=== PATIENT | female | born 1945 | race Caucasian/White ===

== ENCOUNTER → 2021-03-27 13:51 | Outpatient (CLI) | payer MEDICARE, OTHER, SELFPAY ==
--- NOTE | 2021-03-27 14:01 | XR_ITS ---
PROCEDURE: XR KNEE RT 3V CLINICAL INDICATION: Rt tibial plateau fracture COMPARISON: No exams were available for comparison FINDINGS: Mildly distracted oblique fracture is present involving the proximal tibia. The fracture begins along the medial aspect of the lateral tibial plateau and extends inferiorly and obliquely exiting medially at the proximal tibial region. Nondisplaced proximal fibular fracture is also noted involving the head of the fibula. There is an extra small vertical component extending into the lateral aspect of the medial tibial plateau articular surface. The fracture margins are well-circumscribed suggesting that this may represent an older fracture. Please correlate with clinical findings. There is a lucency is well involving the proximal patella centrally and anteriorly consistent with a nondisplaced fracture. Other findings:None. IMPRESSION: Tibial plateau fracture as described above with associated fracture at the head of the fibula and at the proximal patella. These fractures could be old. Please correlate with clinical findings. Dictated by: Alejandro Moreland MD 03/27/2021 14:24 Alejandro Moreland MD in [facility] 03/27/2021 14:24
== END ==
PROVIDERS: PCP Family Medicine; Visit Provider Orthopaedic Surgery
DX: S82.141A Displaced bicondylar fracture of right tibia, initial encounter for closed fracture (principal)
CPT/HCPCS: 73562

== ENCOUNTER → 2021-04-24 13:00 | Outpatient (CLI) | payer MEDICARE, OTHER, SELFPAY ==
--- NOTE | 2021-04-24 13:07 | XR_ITS ---
PROCEDURE: XR KNEE RT 3V CLINICAL INDICATION: RT tibial plateau fx Follow-up tibial plateau fracture COMPARISON: CR XR KNEE RT 3V from 03/27/2021 FINDINGS: Proximal tibial fracture once again noted involving the medial aspect of the lateral tibial plateau extending obliquely to the proximal tibial region medially. An additional longitudinal intra-articular component noted on the lateral view in the central aspect of the proximal tibia. Nondisplaced fracture involves the proximal fibula at swell. Moderate size knee joint effusion which appears slightly smaller. IMPRESSION: No change intra-articular proximal tibial fracture and proximal fibular fracture with knee joint effusion. Dictated by: Alejandro Moreland MD 04/24/2021 16:10 Alejandro Moreland MD in [facility] 04/24/2021 16:10
== END ==
PROVIDERS: PCP Family Medicine; Visit Provider Orthopaedic Surgery
DX: S82.141A Displaced bicondylar fracture of right tibia, initial encounter for closed fracture (principal)
CPT/HCPCS: 73562

== ENCOUNTER 2021-04-24 14:06 | Outpatient (RCR) | payer MEDICARE, OTHER, SELFPAY | END 2021-04-24 15:00 | disposition home or self-care (01) | LOC: PT 14:06 | PROVIDERS: Visit Provider Orthopaedic Surgery | DX: S82.141A Displaced bicondylar fracture of right tibia, initial encounter for closed fracture (principal) | CPT/HCPCS: 97760 ==

== ENCOUNTER → 2021-05-22 13:00 | Outpatient (CLI) | payer MEDICARE, OTHER, SELFPAY ==
--- NOTE | 2021-05-22 13:03 | XR_ITS ---
PROCEDURE: XR KNEE RT 3V CLINICAL INDICATION: RT tibial plateau fx COMPARISON: CR XR KNEE RT 3V from 03/27/2021 CR XR KNEE RT 3V from 04/24/2021 FINDINGS: Tibial plateau fracture once again noted with the fracture line extending from the lateral aspect of the medial tibial plateau inferiorly and medially to the medial and proximal tibia. Fracture line is still prominent. There is depression of the medial tibial plateau. There is an additional fracture component extending from the lateral aspect of the medial tibial plateau articular surface to the main fracture line. Nondisplaced fracture involves the head of the fibula. IMPRESSION: No change depressed comminuted tibial plateau fracture with incomplete bony union with associated nondisplaced fracture of the proximal fibula Dictated by: Alejandro Moreland MD 05/22/2021 13:22 Alejandro Moreland MD in [facility] 05/22/2021 13:22
== END ==
PROVIDERS: PCP Family Medicine; Visit Provider Orthopaedic Surgery
DX: S82.141A Displaced bicondylar fracture of right tibia, initial encounter for closed fracture (principal)
CPT/HCPCS: 73562

== ENCOUNTER → 2021-07-01 12:57 | Outpatient (CLI) | payer MEDICARE, OTHER, SELFPAY ==
--- NOTE | 2021-07-01 13:01 | XR_ITS ---
PROCEDURE: XR KNEE RT 3V CLINICAL INDICATION: right tibial plateau fracture COMPARISON: CR XR KNEE RT 3V from 03/27/2021 CR XR KNEE RT 3V from 04/24/2021 CR XR KNEE RT 3V from 05/22/2021 FINDINGS: Tibial plateau fracture once again noted involving the mid and medial aspect of the tibial plateau with inferior angulation the medial aspect of the tibia. The fracture line is still very visible with a longitudinal component extending into the articular surface. There is some callus formation noted posteriorly. IMPRESSION: There is incomplete bony union involving the tibial plateau fracture. There is some callus formation noted posteriorly however the there is nonunion of the transverse component of the fracture and the linear component which extends to the articular surface. Dictated by: Alejandro Moreland MD 07/01/2021 15:49 Alejandro Moreland MD in [facility] 07/01/2021 15:49
== END ==
PROVIDERS: PCP Family Medicine; Visit Provider Orthopaedic Surgery
DX: S82.141A Displaced bicondylar fracture of right tibia, initial encounter for closed fracture (principal)
CPT/HCPCS: 73562

== ENCOUNTER → 2021-08-06 07:45 | Outpatient (CLI) | payer MEDICARE, OTHER, SELFPAY ==
--- NOTE | 2021-08-06 07:45 | CT_ITS ---
PROCEDURE: CT KNEE RT WO CON CLINICAL HISTORY: evaluate non union tibial plateau fx COMPARISON: No exams were available for comparison TECHNIQUE: Axial images obtained with sagittal and coronal reformats. All CT scans at the facility use one or more dose reduction, viz: automated exposure control, ma/kV adjustment per patient size (including targeted exams where dose is matched to indication, i.e. head), or iterative reconstruction technique. FINDINGS: There is an oblique fracture tibia. The fracture extends the medial aspect of the lateral tibial to the medial proximal tibia. The fracture line is clearly visible with some cortication the fracture margins consistent with nonunion. There is good alignment of the major fracture fragments. There is minimal separation of the fracture fragments by approximately 2 mm. There is an additional intra-articular vertical component of the fracture through the proximal tibia also extending from the medial aspect of lateral tibial plateau to the medial margin of proximal tibia. This also is ununited. Other smaller comminuted fragments are present dorsally. 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 No evidence avascular necrosis. Hypertrophic changes are present along the proximal patella. There is a small knee joint effusion. There is generalized vascular calcification. The ligaments, tendons, and menisci are not well evaluated with CT technique. There is mild chondrocalcinosis of the medial meniscus. IMPRESSION: Ununited comminuted tibial plateau fracture Dictated by: Alejandro Moreland MD 08/07/2021 06:48 Alejandro Moreland MD in [facility] 08/07/2021 06:48
== END ==
PROVIDERS: PCP Family Medicine; Visit Provider Orthopaedic Surgery
DX: S82.141A Displaced bicondylar fracture of right tibia, initial encounter for closed fracture (principal)
CPT/HCPCS: 73700

== ENCOUNTER 2024-02-21 07:49 | Day surgery (SDC) | payer MEDICARE, OTHER, SELFPAY ==
[2024-02-16 10:18] VITALS: BMI 31.8
[2024-02-21] MEDS: TETRACAINE 0.5% OPTH SOL 15ML OP ×3 (08:30→08:40)
[2024-02-21] MEDS: CYCLOPENTOLATE 2% OPHTH SOLN 2ML BOTTLE OP ×3 (08:30→08:40)
[2024-02-21] MEDS: PHENYLEPHRINE 2.5% OPHTH SOLN 2ML OP ×3 (08:30→08:40)
[2024-02-21 08:37] VITALS: BP 180/84; PULSE 71; RESP 16; TEMP 36.2; O2SAT 98
[2024-02-21] MEDS: SODIUM CHLORIDE 0.9% 10ML FLUSH SYRINGE 10 ML IV (08:45)
[2024-02-21 08:47] LABS: POC Glucose,Bedside 128 (70-110)
[2024-02-21 09:14] VITALS: BP 114/59; PULSE 56; RESP 18; TEMP 36.6; O2SAT 99
[2024-02-21] MEDS: MIDAZOLAM 2MG/2ML VIAL 1 MG IV (09:14)
[2024-02-21 09:19] VITALS: BP 112/59; PULSE 58; RESP 18; TEMP 36.6; O2SAT 96
[2024-02-21] MEDS: TOBRAMYCIN/DEX OPTH SUSP 2.5ML OP (09:23)
[2024-02-21] MEDS: LIDOCAINE 1% PF 2ML AMPULE 2 ML IJ (09:23)
[2024-02-21 09:24] VITALS: BP 113/59; PULSE 58; RESP 18; TEMP 36.6; O2SAT 97
[2024-02-21] MEDS: TIMOLOL 0.5% OPTH SOLN 5ML OP (09:24)
[2024-02-21 09:29] VITALS: BP 116/61; PULSE 57; RESP 18; TEMP 36.6; O2SAT 97
[2024-02-21 09:34] VITALS: BP 149/49; PULSE 59; RESP 18; TEMP 36.7; O2SAT 99
--- NOTE | 2024-03-06 13:16 | HMH.PROCNOTE ---
[facility] Procedure Note Date: 02/21/24 Time: 13:16 Procedure Note:: Preoperative Diagnosis: Cataract combined NS Cortical Complex [Right] Eye Postop diagnosis: same Operation: Microscopic phacoemulsification with intraocular lens implant [Right] Eye Specimen: None Blood Loss: None The patient was examined in the office with a complaint of poor vision in the [right] eye. The patient reports that this interferes with ADLs such as reading, watching TV and/or driving or the vision is like looking through a foggy haze and is very troubling. The patient was examined and found to have a visually significant cataract with best corrected vision of [20/400] by refraction and/or glare testing. Treatment options, risks and benefits were explained and the patient elected to have cataract surgery in an attempt to improve their vision. The patient had the eye anesthetized with topical tetracaine, the eye ways prepped and draped in the usual fashion for cataract surgery. A paracentesis and a temporal keratotomy were made. 0.2cc of 1% lidocaine PF was placed into the anterior chamber. And aqueous/viscoelastic exchange was done and a 360 degree capsulorexis was performed. Through hydrodissection and delineation with BSS on a cannula was done. The lens nucleus was phecoemulsified with CDE of [14.27]. Residual cortical material was removed using automated I&A The capsular bag was deepened with viscoelastica and a PCIOL was placed in the capsular bag with good centration and stability. Residual viscoelastic was removed using automated I&A. The keratotomy incision was hydrated with BSS on a cannula. The wound were checked and found to be water tight. IOP was checked digitally and adjusted as needed so as not to be too high. 1 drop of timolol 0.5%, ofloxacin, prednisolone acetate and ketorolac was instilled and eye shield taped over the eye. The patient was taken to recovery in good condition and will be seen postoperatively.
== END 2024-02-21 09:45 | disposition home or self-care (01) ==
PROVIDERS: PCP Family Medicine; Visit Provider Ophthalmology
PROC: (CPT 66984; principal; 2024-02-21 09:30)
DX: E11.36 Type 2 diabetes mellitus with diabetic cataract (principal); H25.11 Age-related nuclear cataract, right eye; H53.8 Other visual disturbances; Z79.85 Long-term (current) use of injectable non-insulin antidiabetic drugs
CPT/HCPCS: 66984; 82962; V2632

== ENCOUNTER 2024-03-06 09:14 | Day surgery (SDC) | payer MEDICARE, OTHER, SELFPAY ==
[2024-03-02 13:55] VITALS: BMI 34.9
--- OUTSIDE RECORDS SUMMARY | 2024-03-06 09:17 | XMS_ITS | Continuity of Care Document ---
Author Name Unknown Organization [address] [place] [address]- Care Team Providers Care Retail Consultant Name Role Phone PCP, NO Primary Care Physician Unavailab le Encounter [facility] Date(s): 03/15/21 - 03/15/[address] [place] [address] Encounter Diagnosis Tibial plateau fracture, right(Discharge Diagnosis) - 03/15/21 Discharge Disposition: Home/Self Care Attending Physician: PARUL JAQUEZ MD Admitting Physician: PARUL JAQUEZ MD Referring Physician: PARUL JAQUEZ MD Allergies, Adverse Reactions, Alerts Substance Reaction Severity Status sulfa drugs Active Medications ALPRAZolam 0.25 mg oral tablet 0.25 mg = 1 tab, Oral, TID, PRN PRN for anxiety, 0 Refill(s), Tab Start Date: 03/15/21 Status: Ordered azaTHIOprine 50 mg oral tablet 0 Refill(s) Start Date: 03/15/21 Status: Ordered carvedilol 12.5 mg oral tablet 12.5 mg = 1 tab, Oral, BID, # 180 tab, 0 Refill(s), Tab Start Date: 03/15/21 Status: Ordered escitalopram 20 mg oral tablet 20 mg = 1 tab, Oral, Daily, # 30 tab, 0 Refill(s), Tab Start Date: 03/15/21 Status: Ordered hydroCHLOROthiazide 25 mg oral tablet 25 mg = 1 tab, Oral, Daily, # 30 tab, 0 Refill(s), Tab Start Date: 03/15/21 Status: Ordered levothyroxine 150 mcg (0.15 mg) oral tablet 150 mcg = 1 tab, Oral, Daily, # 30 tab, 0 Refill(s), Tab Start Date: 03/15/21 Status: Ordered metFORMIN 500 mg oral tablet 500 mg = 1 tab, Oral, BID, # 180 tab, 0 Refill(s), Tab Start Date: 03/15/21 Status: Ordered methotrexate 2.5 mg oral tablet 0 Refill(s) Start Date: 03/15/21 Status: Ordered moexipril 15 mg oral tablet 15 mg = 1 tab, Oral, Daily, # 30 tab, 0 Refill(s), Tab Start Date: 03/15/21 Status: Ordered Percocet 5 mg-325 mg oral tablet 1 tab, Oral, Q4hr, PRN PRN as needed for pain, X 5 day, # 20 tab, 0 Refill(s), Tibial plateau fracture, right Start Date: 03/15/21 Stop Date: 03/20/21 Status: Ordered tiZANidine 2 mg oral tablet 2 mg = 1 tab, Daily, 0 Refill(s) Start Date: 03/15/21 Status: Ordered Problem List Condition Effective Dates Status Health Status Inform ant Diabetes(Confirmed) Active patie nt Hypothyroid(Confirmed) Active pa tient Lupus(Confirmed) Active patient Psoriatic arthritis(Confirmed) Active patient Results Radiology Reports * Exam Date Time Procedure Performing Provider Status 03/15/21 5:28 PM XR Knee 3 Views Right Autumn Milan ; Modified Notes: (XR Knee 3 Views Right) Reason For Exam: Trauma REPORT PROCEDURE INFORMATION: Exam: XR Right Knee Exam date and time: 03/15/2021 4:24 PM Age: 75 years old Clinical indication: Injury or trauma; Fall; Blunt trauma; Knee; Right; Additional info: Trauma, fall due to wind TECHNIQUE: Imaging protocol: XR Right knee. Views: 3 views. COMPARISON: No relevant prior studies available. FINDINGS: Bones/joints: Mild to moderate joint effusion. Unusual fracture through the medial tibial metaphysis with extension to the intra-articular portion of the right tibial plateau. Soft tissues: Normal. IMPRESSION: 1. Mild to moderate joint effusion. 2. Unusual fracture through the medial tibial metaphysis with extension to the intra-articular portion of the right tibial plateau. Signed: Jimbo Allen MD On 03/15/2021 19:3:53 Electronically Signed Professional Interpretation Provided By: [facility], , Final Report Dictated: 03/15/2021 7:03 pm Dictated By: JIMBO ALLEN MD Electronic Signature: 03/15/2021 7:03 pm Signed By: JIMBO ALLEN MD Transcribed: 03/15/2021 7:03 pm Vital Signs Most recent to oldest [Reference Range]: 1 2 Blood Pressure [90-140/60-90 mmHg] 147/7 1mmHg *HI* (03/15/21 7:30 PM) 165/62mmHg *HI* (03/15/21 3:59 PM) Dosing BMI 35 (03/15/21 7:31 PM) 35 (03/15/21 3:59 PM) Dosing BSA-Mosteller 1.88 m2 (03/15/21 7:31 PM) 1.88 m2 (03/15/21 3:59 PM) Dosing Weight 83 kg (03/15/21 7:31 PM) 83 kg (03/15/21 3:59 PM) Heart Rate [60-100 bpm] 69 bpm (03/15/21 7:30 PM) 73 bpm (03/15/21 3:59 PM) Height 154 cm (03/15/21 7:31 PM) 154 cm (03/15/21 3:59 PM) MAP 96 mmHg (03/15/21 3:59 PM) Respiratory Rate [14-20 breaths/min] 18 breaths/min (03/15/21 7:30 PM) 19 breaths/min (03/15/21 3:59 PM) SpO2/Pulse Oximetry [85-100 %] 97 % (03/15/21 7:30 PM) 96 % (03/15/21 3:59 PM) Temperature Temporal [36-38 degC] 36.4 d egC (03/15/21 3:59 PM) Social History Social History Type Response Smoking Status Never smoker entered on: 03/15/21 Sex Hospital Discharge Instructions Follow Up Care 03/15/2021 15:57:20 With:ALLI REIS Address: [address] [place] [address] , [address] [place] [phone] Business (1) When:2-3 days Comments:call tomorrow for an appointment
--- OUTSIDE RECORDS SUMMARY | 2024-03-06 09:17 | XMS_ITS | Continuity of Care Document ---
Author Name Unknown Organization [facility] Address [address] [address] Phone Care Team Providers Care Undercutter Name Role Phone Daksha Gonzalez MD Unavailable Unavailable Allergies, Adverse Reactions, Alerts Substance Reaction Status Criticality Sulfa (Sulfonamide Antibiotics) Unknown Active No Information Medications Medication Instructions Dosage Effective Dates (start - stop) Status Comments levofloxacin 750 mg tablet take 1 tablet by oral route every day 750 MG - Active Zanaflex 2 mg capsule take 1 capsule by oral route at bedtime - Active methotrexate sodium 2.5 mg tablet take 7 tablet by oral route every week 17.5 MG - Active folic acid 1 mg tablet take 3 tablet by oral route every day except the day of methotrexate. 3 MG - Active azathioprine 50 mg tablet take 2 tablet by oral route 2 times every day 2 tablet - Active Prolia 60 mg/mL subcutaneous syringe inject 1 milliliter by subcutaneous route every 6 months in the upper arm, upper thigh or abdomen 60 MG - Active DX: M81.0 Slow-Mag 71.5 mg tablet,delayed release Take 2 po qd - Active levothyroxine 137 mcg tablet take 1 tablet by oral route every day 137 MCG - Active carvedilol 12.5 mg tablet take 1 tablet by oral route 2 times every day with food 12.5 MG - Active ibuprofen 200 mg tablet take 1 tablet by oral route every 8 hours as needed with food 200 MG - Active Biotene Dry Mouth Oral Rinse mouthwash take 1 mouthful once a day - Active Xanax 1 mg tablet Take 1 po qd prn - Activ e metformin ER 500 mg tablet,extended release 24 hr take 1 tablet by oral route 2 times every day with the evening meal 500 MG - Active hydrochlorothiazide 25 mg tablet take 1/2 tablet daily - Active Procedures Procedure Date Office Visit Level IV Office Visit Level III Arthrocentesis Major Joint/Bursa 2022 Methylprednisolone Acetate 80mg 023 Office Visit Level IV Arthrocentesis Major Joint/Bursa 2022 Methylprednisolone Acetate 80mg 023 Office Visit Level IV Office Visit Level IV Injection,denosumab,1mg Therapeutic Prophylactic/Dx Injection Tello Office Visit Level IV Office Visit Level IV Injection,denosumab,1mg Therapeutic Prophylactic/Dx Injection Tello Office Visit Level IV Office Visit Level IV Injection,denosumab,1mg Therapeutic Prophylactic/Dx Injection Tello Office Visit Level IV Office Visit Level IV DEXA Bone Density Study 1 + Sites Injection,denosumab,1mg Therapeutic Prophylactic/Dx Injection Tello Office Visit Level IV Arthrocentesis Small Joint Or Bursa Methylprednisolone Acetate 80mg 021 Office Visit Level IV Injection,denosumab,1mg Therapeutic Prophylactic/Dx Injection Tello Office Visit Level IV 25 Hydroxy Includes Fractions If Perform Injection,denosumab,1mg Therapeutic Prophylactic/Dx Injection Tello Office Visit Level IV Office Visit Level IV Injection,denosumab,1mg Therapeutic Prophylactic/Dx Injection Tello Office Visit Level IV Office Visit Level IV Injection,denosumab,1mg Therapeutic Prophylactic/Dx Injection Tello Office Visit Level IV DEXA Bone Density Study 1 + Sites Office Visit Level IV Manual Appl Stress Pfrmd Phys Joint Radi Office Visit Level IV Office Visit Level IV Office Visit Level IV Office Visit Level IV Office Visit Level IV Advance Directives Directive Yes / No Effective Date File Name No Information Encounters Encounter Description Practice Location Reason(s) For Visit Diagnoses Date Provider Providers Copied on Encounter [facility] [address] [place] [address], [id number], tel:[phone] [facility] No Information 4 Carlos Crooks. [address] [place] [address], [id number], . tel:[phone] Office Visit Level IV [facility] [address] [place] [address], [id number], tel:[phone] [facility] Follow Up of SLE (chief complaint) Psoriatic ArthritisPsor iasisRight Shoulder PainSystemic lupus erythematosus OsteoporosisS jogren's SyndromeBody mass index (BMI) 34.0-34.9, adultHigh Risk Medication Use 4 El Guidry. [address] [place] [address], [id number], . tel:[phone] Referring Provider: Mauricio Funes, [address] [place] [address], [address]. tel:[phone] Office Visit Level III [facility], [address] [place] [address], [id number], tel:[phone] [facility] Right shoulder pain (chief complaint) Osteoporos is (chief complaint) Right Shoulder PainBody mass index (BMI) 35.0-35.9, adultAge-rela nesha osteoporosis without current pathological fracture 3 Alejandro Evva. [address], [id number]. tel:[phone] Referring Provider: Mauricio Funes, [address] [place] [address], [address]. tel:[phone] Office Visit Level IV [facility], [address] [place] [address], [id number], tel:[phone] [facility]. Follow Up of SLE (chief complaint) Psoriatic ArthritisPsor iasisRight Shoulder PainSystemic lupus erythematosus Sjogren's SyndromeOsteo porosisHigh Risk Medication UseBody mass index (BMI) 34.0-34.9, adult 3 Carlos Ramiresaine. [address] [place] [address], [id number], [place]. tel:[phone] Referring Provider: Mauricio Funes, [address] [place] [address], [address]. tel:[phone] [facility] [address] [place] [address], [id number], [place] tel:[phone] [facility] Right shoulder pain (chief complaint) Right Shoulder PainBody mass index (BMI) 35.0-35.9, adult 3 El Guidry. [address], [id number], . tel:[phone] Referring Provider: Mauricio Funes, [address] [place] [address], [address]. tel:[phone] Office Visit Level IV [facility] [address] [place] [address], [id number], tel:[phone] [facility] SLE (chief complaint) Psoriatic ArthritisPsor iasisSystemic lupus erythematosus Sjogren's SyndromeOsteo porosisBody mass index (BMI) 35.0-35.9, adultHigh Risk Medication UseRight Shoulder Pain 3 El Guidry. [address] [place] [address], [id number], . tel:[phone] Referring Provider: Nirali Vasquez, [address] [place] [address], [id number]. tel:[phone] Office Visit Level IV [facility] [address] [place] [address], [id number], tel:[phone] [facility] SLE (chief complaint) Psoriatic ArthritisPsor iasisSystemic lupus erythematosus Sjogren's SyndromeOsteo porosisBody mass index (BMI) 35.0-35.9, adultHigh Risk Medication Use 3 Carlos Crooks. [address] [place] [address], [id number], . tel:[phone] Referring Provider: Mauricio Funes, [address] [place] [address], [address]. tel:[phone] [facility] [address] [place] [address], [id number], tel:[phone] [facility] Age-related osteoporosis without current pathological fracture 3 Carlos Crooks. [address] [place] [address], [id number], . tel:[phone] Referring Provider: Mauricio Funes, [address] [place] [address], [address]. tel:[phone] [facility] [address] [place] [address], [id number], tel:[phone] [facility] SLE (chief complaint) Psoriatic ArthritisPsor iasisSystemic lupus erythematosus Sjogren's SyndromeOsteo porosisBody mass index (BMI) 34.0-34.9, adultBody mass index (BMI) 35.0-35.9, adultHigh Risk Medication Use Aug- 2 Carlos Daksha. [address] [place] [address], [id number], [place]. tel:[phone] Office Visit Level IV [facility], [address] [place] [address], [id number], tel:[phone] [facility] SLE (chief complaint) Psoriatic ArthritisPsor iasisSystemic lupus erythematosus Sjogren's SyndromeOsteo porosisBody mass index (BMI) 34.0-34.9, adultHigh Risk Medication UseBody mass index (BMI) 35.0-35.9, adult Nov- 2 El Guidry. [address] [place] [address], [id number], . tel:[phone] Referring Provider: Mauricio Funes, [address] [place] [address], [address]. tel:[phone] Office Visit Level IV [facility], [address] [place] [address], [id number], tel:[phone] [facility] SLE (chief complaint) Psoriatic ArthritisPsor iasisSystemic lupus erythematosus Sjogren's SyndromeOsteo porosisBody mass index (BMI) 34.0-34.9, adultHigh Risk Medication Use 2 Carlos Daksha. [address] [place] [address], [id number], . tel:[phone] Referring Provider: Isael Alexander, [address] [place] [address], [id number]. tel:[phone] [facility], [address] [place] [address], [id number], tel:[phone] [facility] Age-related osteoporosis without current pathological fracture 2 Carlos Crooks. [address] [place] [address], [id number], . tel:[phone] Referring Provider: Isael Alexander, [address] [place] [address], [id number]. tel:[phone] Office Visit Level IV [facility], [address] [place] [address], [id number], tel:[phone] [facility] lupus follow up (chief complaint) Psoriasis (chief complaint) Sjogren's (chief complaint) Psoriatic ArthritisPsor iasisSystemic lupus erythematosus Sjogren's SyndromeOsteo porosisBody mass index (BMI) 34.0-34.9, adultHigh Risk Medication Use 2 El Guidry. [address] [place] [address], [id number], . tel:[phone] Referring Provider: Mauricio Funes, [address] [place] [address], [address]. tel:[phone] Office Visit Level IV [facility] [address] [place] [address], [id number], tel:[phone] [facility] lupus follow up (chief complaint) Psoriasis (chief complaint) Sjogren's (chief complaint) Psoriatic ArthritisPsor iasisSystemic lupus erythematosus Sjogren's SyndromeOsteo porosisBody mass index (BMI) 34.0-34.9, adultHigh Risk Medication Use 2 Carlos Crooks. [address] [place] [address], [id number], . tel:[phone] Referring Provider: Isael Alexander, [address] [place] [address], [address]. tel:[phone] [facility] [address] [place] [address], [id number], tel:[phone] [facility] Age-related osteoporosis without current pathological fracture 1 Carlos Crooks. [address] [place] [address], [id number], . tel:[phone] Referring Provider: Isael Alexander, [address] [place] [address], [address]. tel:[phone] Office Visit Level IV [facility] [address] [place] [address], [id number], tel:[phone] [facility] lupus follow up (chief complaint) Psoriasis (chief complaint) Sjogren's (chief complaint) Psoriatic ArthritisPsor iasisSystemic lupus erythematosus Sjogren's SyndromeTrigg er fingerOsteopo rosisBody mass index (BMI) 35.0-35.9, adultHigh Risk Medication UseBody mass index (BMI) 34.0-34.9, adult 1 El Guidry. [address] [place] [address], [id number], . tel:[phone] Referring Provider: Mauricio Funes, [address] [place] [address], [address]. tel:[phone] [facility] [address] [place] [address], [id number], [place] tel:[phone] [facility] lupus follow up (chief complaint) Psoriasis (chief complaint) Sjogren's (chief complaint) Psoriatic ArthritisPsor iasisSystemic lupus erythematosus Sjogren's SyndromeTrigg er fingerOsteopo rosisHigh Risk Medication UseBody mass index (BMI) 35.0-35.9, adult 1 Carlos Crooks. [address] [place] [address], [id number], . tel:[phone] Office Visit Level IV [facility] [address] [place] [address], [id number], tel:[phone] [facility] No Information 1 Carlos Daksha. [address] [place] [address], [id number], . tel:[phone] Referring Provider: Mauricio Funes, [address] [place] [address], [address]. tel:[phone] [facility] [address] [place] [address], [id number], [place] tel:[phone] [facility] Age-related osteoporosis without current pathological fracture 1 Carlos Daksha. [address] [place] [address], [id number], . tel:[phone] Referring Provider: Isael Alexander, [address] [place] [address], [address]. tel:[phone] Office Visit Level IV [facility] [address] [place] [address], [id number], [place] tel:[phone] [facility] lupus follow up (chief complaint) Psoriasis (chief complaint) Sjogren's (chief complaint) Psoriatic ArthritisPsor iasisSystemic lupus erythematosus Sjogren's SyndromeOsteo porosisHigh Risk Medication UseBody mass index (BMI) 36.0-36.9, adultTrigger finger Mar-0 1 Carlos Daksha. [address] [place] [address], [id number], [place]. tel:[phone] Referring Provider: Mauricio Funes, [address] [place] [address], [address]. tel:[phone] Office Visit Level IV [facility] [address] [place] [address], [id number], [place] tel:[phone] [facility] lupus follow up (chief complaint) Psoriasis (chief complaint) Sjogren's (chief complaint) Psoriatic ArthritisPsor iasisSystemic lupus erythematosus Sjogren's SyndromeOsteo porosisBody mass index (BMI) 34.0-34.9, adultBody mass index (BMI) 35.0-35.9, adultHigh Risk Medication Use Aug-0 3-202 0 El Guidry. [address] [place] [address], [id number], [place]. tel:[phone] Referring Provider: Mauricio Funes, [address] [place] [address], [address]. tel:[phone] [facility] [address] [place] [address], [id number], tel:[phone] [facility] Age-related osteoporosis without current pathological fracture 0 Carlos Daksha. [address] [place] [address], [id number], [place]. tel:[phone] Referring Provider: Mauricio Funes, [address] [place] [address], 21791. tel:[phone] Office Visit Level IV [facility] [address] [place] [address], [id number], tel:[phone] [facility] lupus follow up (chief complaint) Psoriasis (chief complaint) Sjogren's (chief complaint) Psoriatic ArthritisPsor iasisSystemic lupus erythematosus Sjogren's SyndromeOsteo porosisBody mass index (BMI) 35.0-35.9, adultHigh Risk Medication UseBody mass index (BMI) 34.0-34.9, adult Aug-2 0-202 0 El Guidry. [address] [place] [address], [id number], . tel:[phone] Referring Provider: Mauricio Funes, [address] [place] [address], [address]27. tel:[phone] [facility] [address] [place] [address], [id number], tel:[phone] [facility] No Information 0 Carlos Crooks. [address], [id number], . tel:[phone] Referring Provider: Mauricio Funes, [address] [place] [address], [facility]. tel:[phone] [facility] [address] [place] [address], [id number], tel:[phone] [facility] Age-related osteoporosis w/o current pathological fracture 0 0 Carlos Crooks. [address] [place] [address], [id number], [place]. tel:[phone] Referring Provider: Mauricio Funes, [address] [place] [address], [facility]. tel:[phone] Office Visit Level IV [facility] [address] [place] [address], [id number], tel:[phone] [facility] lupus follow up (chief complaint) Psoriasis (chief complaint) Sjogren's (chief complaint) Psoriatic ArthritisPsor iasisSystemic lupus erythematosus Sjogren's SyndromeOsteo porosisBody mass index (BMI) 35.0-35.9, adultHigh Risk Medication Use 0 0 Carlos Daksha. [address] [place] [address], [id number], . tel:[phone] Referring Provider: Mauricio Funes, [address] [place] [address], 09543. tel:[phone] Office Visit Level IV [facility], [address] [place] [address], [id number], tel:[phone] [facility] lupus follow up (chief complaint) Psoriasis (chief complaint) Sjogren's (chief complaint) Psoriatic ArthritisPsor iasisSystemic lupus erythematosus Sjogren's SyndromeOsteo porosisHigh Risk Medication UseBody mass index (BMI) 35.0-35.9, adult 0 Carlos Crooks. [address] [place] [address], [id number], [place]. tel:[phone] Referring Provider: Mauricio Funes, [address] [place] [address], 81454. tel:[phone] [facility] [address] [place] [address], [id number], tel:[phone] [facility] No Information 9 El Guidry. [address] [place] [address], [id number], . tel:[phone] [facility] [address] [place] [address], [id number], tel:[phone] [facility] Age-related osteoporosis w/o current pathological fracture 9 Carlos Crooks. [address] [place] [address], [id number], . tel:[phone] Referring Provider: Mauricio Funes, [address] [place] [address], [address]47. tel:[phone] Office Visit Level IV [facility] [address] [place] [address], [id number], tel:[phone] [facility] lupus follow up (chief complaint) Psoriasis (chief complaint) Sjogren's (chief complaint) Psoriatic ArthritisPsor iasisSystemic lupus erythematosus Sjogren's SyndromeOsteo porosisBody mass index (BMI) 34.0-34.9, adultHigh Risk Medication Use 9 El Guidry. [address] [place] [address], [id number], . tel:[phone] Referring Provider: Mauricio Funes, [address] [place] [address], 01575. tel:[phone] Office Visit Level IV [facility] [address] [place] [address], [id number], tel:[phone] [facility] lupus follow up (chief complaint) Psoriasis (chief complaint) Sjogren's (chief complaint) Psoriatic ArthritisPsor iasisSystemic lupus erythematosus Sjogren's SyndromeOsteo porosisBody mass index (BMI) 34.0-34.9, adultHigh Risk Medication Use El Guidry. [address] [place] [address], [id number], . tel:[phone] Referring Provider: Mauricio Funes, [address] [place] [address], [address]. tel:[phone] [facility] [address] [place] [address], [id number], tel:[phone] [facility] Age-related osteoporosis w/o current pathological fracture 9 Carlos Crooks. [address] [place] [address], [id number], [place]. tel:[phone] Referring Provider: Mauricio Funes, [address] [place] [address], [address]. tel:[phone] Office Visit Level IV [facility] [address] [place] [address], [id number], tel:[phone] [facility] lupus follow up (chief complaint) Psoriasis (chief complaint) Sjogren's (chief complaint) Psoriatic ArthritisPsor iasisSystemic lupus erythematosus Sjogren's SyndromeBody mass index (BMI) 34.0-34.9, adultHigh Risk Medication UseOsteoporos is Apr-0 9 Amy Kaitlynn. [address], [address], [id number]. tel:[phone] Referring Provider: Mauricio Funes, [address] [place] [address], [address]. tel:[phone] Office Visit Level IV [facility] [address] [place] [address], [id number], [place] tel:[phone] [facility] lupus follow up (chief complaint) Psoriasis (chief complaint) Sjogren's (chief complaint) Psoriatic ArthritisSyst emic lupus erythematosus Sjogren's SyndromeHigh Risk Medication UseBody mass index (BMI) 34.0-34.9, adultPsoriasi s Aug- 8 Carlos Crooks. [address], [address], [id number], [place]. tel:[phone] Referring Provider: Mauricio Funes, [address] [place] [address], [address]. tel:[phone] Office Visit Level IV [facility] [address] [place] [address], [id number], [place] tel:[phone] [facility] lupus follow up (chief complaint) Psoriatic ArthritisSyst emic lupus erythematosus Sjogren's SyndromeHigh Risk Medication Use 8 [place] Viviane. [address], [address], [id number]. tel:[phone] Referring Provider: Mauricio Funes, [address] [place] [address], [address]. tel:[phone] Office Visit Level IV [facility] [address] [place] [address], [id number], [place] tel:[phone] [facility] lupus follow up (chief complaint) Psoriatic ArthritisSyst emic lupus erythematosus Sjogren's SyndromeHigh Risk Medication Use 8 Carlos Daksha. [address], Suite [facility], [place], [place], [id number], [place]. tel:[phone] Referring Provider: Mauricio Funes, [address] [place] [address], [address]. tel:[phone] Office Visit Level IV [facility] [address], [id number], [place] tel:[phone] [facility] lupus follow up (chief complaint) Psoriatic ArthritisSyst emic lupus erythematosus Sjogren's SyndromeHigh Risk Medication Use 7 Sher Viviane. [address], [address] [place] [address], [id number]. tel:[phone] Referring Provider: Mauricio Funes, [address] [place] [address], [address]. tel:[phone] Office Visit Level IV [facility] [address] [place] [address], [id number], [place] tel:[phone] [facility] lupus follow up (chief complaint) Psoriatic ArthritisSyst emic lupus erythematosus Sjogren's SyndromeHigh Risk Medication Use 7 [place] Viviane. [address], [address] [place] [address], [id number]. tel:[phone] Referring Provider: Mauricio Funes, [address] [place] [address], [address]. tel:[phone] [facility] [address] [facility] [place] [address], [id number], [place] tel:[phone] [facility] Sjogren's SyndromeSyste goldy lupus erythematosus Psoriatic ArthritisHigh Risk Medication Use Sher Viviane. [address], [address], [place], [place], [id number]. tel:[phone] Office Visit Level IV [facility] [address], [place], [place], [id number], tel:[phone] [facility] No Information [place] Viviane. [address], [address], [place], [place], [id number]. tel:[phone] Referring Provider: Mauricio Funes, [address] [place] [address], [facility]. tel:[phone] Family History Family Member Type Diagnosis Age At Onset Mother Problem (finding) osteoporosis Father Problem (finding) ulcerative colitis Immunizations Vaccine Date Status Comments SARS-COV-2 (COVID-19) vaccin e, mRNA, spike protein, LNP, preservative free, 100 mcg/0.5mL dose (Moderna) administered Note: booster ; Source: Other Provider SARS-COV-2 (COVID-19) vaccin e, mRNA, spike protein, LNP, preservative free, 100 mcg/0.5mL dose (Moderna) administered Source: Other P rovider SARS-COV-2 (COVID-19) vaccin e, mRNA, spike protein, LNP, preservative free, 100 mcg/0.5mL dose (Moderna) administered Source: Other P rovider Flu (split) (3 yrs or older) administered Source: Other Provider Pneumo (2 yrs or older)(PPV) administered Source: Source Unspecified Flu (split) (3 yrs or older) administered Source: Source Unspecified Payers Payer name Insurance type Covered libertarian ID Authoriza tinathan(s) Medicare [id number] MB [id number] [employer] Supplement CI [id number] Social History Type Description Quantity Date Captured Comments Sex Female Smoking Status No Information Chief Complaint And Reason For Visit No Information Reason For Referral Reason For Referral No Information Plan Of Treatment Date Type Action Status Goal Lifestyle educat ion regarding diet completed Goal Lifestyle educat ion regarding diet completed Goal Lifestyle educat ion regarding diet completed Goal Lifestyle educat ion regarding diet completed Goal Lifestyle educat ion regarding diet completed Goal Lifestyle educat ion regarding diet completed Goal Lifestyle educat ion regarding diet completed Goal Lifestyle educat ion regarding diet completed Goal Lifestyle educat ion regarding diet completed Goal Lifestyle educat ion regarding diet completed Goal Lifestyle educat ion regarding diet completed Goal Lifestyle educat ion regarding diet completed Goal Lifestyle educat ion regarding diet completed Goal Lifestyle educat ion regarding diet completed Appointment Melody Velez BOOKED Future Order: Lab Order CBC With Differential/Platelet ([id number]), Sent on: Sent Future Order: Lab Order Comp. Me tabolic Panel (14) ([id number]), Sent on: Sent Future Order: Lab Order C-Reacti ve Protein, Quant ([id number]), Sent on: Sent Future Order: Lab Order Sediment ation Rate-Westergren ([id number]), Sent on: Sent Future Order: Lab Order Urinalys is, Routine ([id number]), Sent on: Sent Future Order: Lab Order Vitamin D, 25-Hydroxy ([id number]), Sent on: Sent Future Order: Lab Order Compleme nt C3, Serum (666723), Sent on: Sent Future Order: Lab Order Compleme nt C4, Serum (997532), Sent on: Sent Future Order: Lab Order dsDNA Sc rn by VALERIA Ridley ([id number]), Sent on: Sent Future Order: Radiology Order Kristian ne density study (by DEXA); axial skeleton (e.g., hips, pelvis, spine) (66805), Ordered on: Ordered Future Order: Lab Order CBC With Differential/Platelet (423140), Ordered on: Ordered Future Order: Lab Order Comp. Me tabolic Panel (14) ([id number]), Ordered on: Ordered Future Order: Lab Order C-Reacti ve Protein, Quant ([id number]), Ordered on: Ordered Future Order: Lab Order Sediment ation Rate-Westergren (815445), Ordered on: Ordered Future Order: Lab Order Compleme nt C3, Serum ([id number]), Ordered on: Ordered Future Order: Lab Order Compleme nt C4, Serum (001027), Ordered on: Ordered Future Order: Lab Order dsDNA Sc rn by VALERIA Ridley ([id number]), Ordered on: Ordered Future Order: Lab Order UA, Comp lete w/ Micro Exam w/Rflx Culture, Comp ([id number]), Ordered on: Ordered Future Order: Lab Order CBC With Differential/Platelet (908771), Ordered on: Ordered Future Order: Lab Order Comp. Me tabolic Panel (14) ([id number]), Ordered on: Ordered Future Order: Lab Order C-Reacti ve Protein, Quant (794141), Ordered on: Ordered Future Order: Lab Order Compleme nt C4, Serum (170615), Ordered on: Ordered Future Order: Lab Order Compleme nt C3, Serum (892126), Ordered on: Ordered Future Order: Lab Order dsDNA Sc rn by VALERIA Ridley ([id number]), Ordered on: Ordered Future Order: Lab Order UA, Comp lete w/ Micro Exam w/Rflx Culture, Comp ([id number]), Ordered on: Ordered Future Order: Lab Order Vitamin D, 25-Hydroxy (103185), Ordered on: Ordered Future Order: Lab Order CBC With Differential/Platelet (501591), Ordered on: Ordered Future Order: Lab Order Comp. Me tabolic Panel (14) (028751), Ordered on: Ordered Future Order: Lab Order C-Reacti ve Protein, Quant (357830), Ordered on: Ordered Future Order: Lab Order Sediment ation Rate-Westergren (540294), Ordered on: Ordered Future Order: Lab Order UA, Comp lete w/ Micro Exam w/Rflx Culture, Comp (745491), Ordered on: Ordered Future Order: Lab Order CBC With Differential/Platelet (326385), Ordered on: Ordered Future Order: Lab Order Comp. Me tabolic Panel (14) ([id number]), Ordered on: Ordered Future Order: Lab Order C-Reacti ve Protein, Quant (663735), Ordered on: Ordered Future Order: Lab Order Sediment ation Rate-Westergren (616760), Ordered on: Ordered Future Order: Lab Order dsDNA Sc rn by VALERIA Ridley ([id number]), Ordered on: Ordered Future Order: Lab Order Compleme nt C3, Serum ([id number]), Ordered on: Ordered Future Order: Lab Order Compleme nt C4, Serum (359320), Ordered on: Ordered Future Order: Lab Order UA, Comp lete w/ Micro Exam w/Rflx Culture, Comp (232430), Ordered on: Ordered Future Order: Lab Order 25-Hyd migdalia Vitamin D (Theratest) (VITADEI), Ordered on: Ordered Future Order: Lab Order CBC With Differential/Platelet (812209), Sent on: Sent Future Order: Lab Order Comp. Dc tabolic Panel (14) (656409), Sent on: Sent Future Order: Lab Order C-Reacti ve Protein, Quant (778277), Sent on: Sent Future Order: Lab Order Sediment ation Rate-Westergren (831281), Sent on: Sent Future Order: Lab Order CBC With Differential/Platelet (412280), Ordered on: Ordered Future Order: Lab Order Comp. Dc tabolic Panel (14) (479270), Ordered on: Ordered Future Order: Lab Order C-Reacti ve Protein, Quant (449811), Ordered on: Ordered Future Order: Lab Order Sediment ation Rate-Westergren ([id number]), Ordered on: Ordered Future Order: Lab Order CBC With Differential/Platelet (338280), Ordered on: Ordered Future Order: Lab Order Comp. Dc tabolic Panel (14) (173400), Ordered on: Ordered Future Order: Lab Order C-Reacti ve Protein, Quant (743097), Ordered on: Ordered Future Order: Lab Order Sediment ation Rate-Westergren (957916), Ordered on: Ordered Future Order: Lab Order Compleme nt C3, Serum (159612), Ordered on: Ordered Future Order: Lab Order Compleme nt C4, Serum (971547), Ordered on: Ordered Future Order: Lab Order dsDNA Sc rn by Khai IFA ([id number]), Ordered on: Ordered Future Order: Lab Order UA, Comp lete w/ Micro Exam w/Rflx Culture, Comp (744001), Ordered on: Ordered Future Order: Lab Order CBC With Differential/Platelet (904505), Ordered on: Ordered Future Order: Lab Order Comp. Me tabolic Panel (14) (738786), Ordered on: Ordered Future Order: Lab Order C-Reacti ve Protein, Quant (324483), Ordered on: Ordered Future Order: Lab Order Compleme nt C3, Serum (164998), Ordered on: Ordered Future Order: Lab Order Compleme nt C4, Serum (195932), Ordered on: Ordered Future Order: Lab Order dsDNA Sc rn by Khai IFA ([id number]), Ordered on: Ordered Future Order: Lab Order UA, Comp lete w/ Micro Exam w/Rflx Culture, Comp (050877), Ordered on: Ordered Future Order: Lab Order Sediment ation Rate-Westergren (600959), Ordered on: Ordered Future Order: Lab Order Vitamin D, 25-Hydroxy (121470), Ordered on: Ordered Future Order: Lab Order CBC With Differential/Platelet (716990), Ordered on: Ordered Future Order: Lab Order Comp. Dc tabolic Panel (14) (315854), Ordered on: Ordered Future Order: Lab Order C-Reacti ve Protein, Quant (031821), Ordered on: Ordered Future Order: Lab Order Sediment ation Rate-Westergren (199453), Ordered on: Ordered Future Order: Lab Order Urinalys is, Complete (462498), Ordered on: Ordered Future Order: Radiology Order Kristian ne density study (by DEXA); axial skeleton (e.g., hips, pelvis, spine) (27001), Ordered on: Ordered Future Order: Lab Order CBC With Differential/Platelet (379751), Ordered on: Ordered Future Order: Lab Order Comp. Dc tabolic Panel (14) (927013), Ordered on: Ordered Future Order: Lab Order C-Reacti ve Protein, Quant ([id number]), Ordered on: Ordered Future Order: Lab Order Sediment ation Rate-Westergren (942765), Ordered on: Ordered Future Order: Lab Order UA, Comp lete w/ Micro Exam w/Rflx Culture, Comp (267653), Ordered on: Ordered Future Order: Lab Order Protein Elec + Interp (Rflx JOVANNA+FLC), S (887611), Ordered on: Ordered Future Order: Lab Order CBC With Differential/Platelet (421986), Ordered on: Ordered Future Order: Lab Order Comp. Dc tabolic Panel (14) (418477), Ordered on: Ordered Future Order: Lab Order Sediment ation Rate-Westergren (411480), Ordered on: Ordered Future Order: Lab Order C-Reacti ve Protein, Quant (526027), Ordered on: Ordered Future Order: Lab Order UA, Comp lete w/ Micro Exam w/Rflx Culture, Comp (999130), Ordered on: Ordered Future Order: Lab Order CBC With Differential/Platelet (874698), Ordered on: Ordered Future Order: Lab Order Comp. Dc tabolic Panel (14) (481331), Ordered on: Ordered Future Order: Lab Order C-Reacti ve Protein, Quant ([id number]), Ordered on: Ordered Future Order: Lab Order Sediment ation Rate-Westergren (375273), Ordered on: Ordered Future Order: Lab Order Compleme nt C3, Serum (264902), Ordered on: Ordered Future Order: Lab Order Compleme nt C4, Serum (959042), Ordered on: Ordered Future Order: Lab Order dsDNA Sc rn by VALERIA Ridley ([id number]), Ordered on: Ordered Future Order: Lab Order CBC With Differential/Platelet (153091), Ordered on: Ordered Future Order: Lab Order Comp. Dc tabolic Panel (14) (995305), Ordered on: Ordered Future Order: Lab Order C-Reacti ve Protein, Quant ([id number]), Ordered on: Ordered Future Order: Lab Order Sediment ation Rate-Westergren (911749), Ordered on: Ordered Future Order: Lab Order 25-Hyd migdalia Vitamin D (Theratest) (VITADEI), Ordered on: Ordered Future Order: Lab Order Urinalys is, Complete (613823), Ordered on: Ordered Future Order: Lab Order CBC With Differential/Platelet (330876), Ordered on: Ordered Future Order: Lab Order Comp. Me tabolic Panel (14) (328559), Ordered on: Ordered Future Order: Lab Order C-Reacti ve Protein, Quant (028968), Ordered on: Ordered Future Order: Lab Order Sediment ation Rate-Westergren (968315), Ordered on: Ordered Future Order: Lab Order Compleme nt C3, Serum (103141), Ordered on: Ordered Future Order: Lab Order Compleme nt C4, Serum (536454), Ordered on: Ordered Future Order: Lab Order UA, Comp lete w/ Micro Exam w/Rflx Culture, Comp (176435), Ordered on: Ordered Future Order: Lab Order dsDNA Sc rn by VALERIA Ridley ([id number]), Ordered on: Ordered Future Order: Lab Order CBC With Differential/Platelet (198561), Sent on: Sent Future Order: Lab Order C-Reacti ve Protein, Quant (044285), Sent on: Sent Future Order: Lab Order Comp. Me tabolic Panel (14) (052194), Sent on: Sent Future Order: Lab Order Sediment ation Rate-Westergren (626060), Sent on: Sent Future Order: Lab Order Urinalys is, Complete (575513), Sent on: Sent Future Order: Lab Order CBC With Differential/Platelet (509756), Ordered on: Ordered Future Order: Lab Order Comp. Me tabolic Panel (14) (806608), Ordered on: Ordered Future Order: Lab Order C-Reacti ve Protein, Quant (418008), Ordered on: Ordered Future Order: Lab Order Sediment ation Rate-Westergren (955596), Ordered on: Ordered Future Order: Lab Order CBC With Differential/Platelet (919839), Ordered on: Ordered Future Order: Lab Order C-Reacti ve Protein, Quant (185291), Ordered on: Ordered Future Order: Lab Order Comp. Me tabolic Panel (14) (184857), Ordered on: Ordered Future Order: Lab Order Sediment ation Rate-Westergren (510644), Ordered on: Ordered Future Order: Lab Order Urinalys is, Complete (282150), Ordered on: Ordered Future Order: Lab Order CBC With Differential/Platelet (666634), Ordered on: Ordered Future Order: Lab Order Comp. Dc tabolic Panel (14) (563947), Ordered on: Ordered Future Order: Lab Order C-Reacti ve Protein, Quant (568979), Ordered on: Ordered Future Order: Lab Order Sediment ation Rate-Westergren (279680), Ordered on: Ordered Future Order: Lab Order Urinalys is, Routine (123635), Ordered on: Ordered Future Order: Radiology Order Kristian ne density study (by DEXA); axial skeleton (e.g., hips, pelvis, spine) (87232), Ordered on: Ordered Future Order: Radiology Order Martinez nd X-ray; Limited (2 views) (47266), Ordered on: Ordered Future Order: Lab Order CBC With Differential/Platelet (679494), Ordered on: Ordered Future Order: Lab Order Comp. Dc tabolic Panel (14) (015369), Ordered on: Ordered Future Order: Lab Order C-Reacti ve Protein, Quant (119916), Ordered on: Ordered Future Order: Lab Order Sediment ation Rate-Westergren (250450), Ordered on: Ordered Future Order: Lab Order UA, Comp lete w/ Micro Exam w/Rflx Culture, Comp (373413), Ordered on: Ordered Future Order: Lab Order dsDNA (n DNA) Scrn by Khai ([id number]), Ordered on: Ordered Future Order: Lab Order Compleme nt C3, Serum (578493), Ordered on: Ordered Future Order: Lab Order Compleme nt C4, Serum (004908), Ordered on: Ordered Future Order: Lab Order CBC With Differential/Platelet (102877), Ordered on: Ordered Future Order: Lab Order Comp. Dc tabolic Panel (14) (442104), Ordered on: Ordered Future Order: Lab Order Sediment ation Rate-Westergren (148855), Ordered on: Ordered Future Order: Lab Order Urinalys is, Complete (628782), Ordered on: Ordered Future Order: Lab Order CBC With Differential/Platelet (242765), Ordered on: Ordered Future Order: Lab Order Comp. Dc tabolic Panel (14) (033528), Ordered on: Ordered Future Order: Lab Order Urinalys is, Complete (152649), Ordered on: Ordered Future Order: Lab Order C-Reacti ve Protein, Quant (066241), Ordered on: Ordered History Of Present Illness Encounter Date Complaint History Of Prese nt Illness Follow Up of SLE Right shoulder pain Osteoporosis Follow Up of SLE Right shoulder pain SLE SLE SLE SLE SLE lupus follow up Systems involved include integumentary and musculoskeletal. The problem is fluctuating. Risk factors include female gender. Symptoms are aggravated by stress. Relieving factors include antimalarials, immunosuppressants and massage. Relevant history includes positive YULI. Associated symptoms include arthralgias and fatigue. Pertinent negatives include discoid rash, dizziness, headache, muscle weakness, photosensitivity, pleuritic pain, Raynaud's phenomenon, seizures, unusual hair loss and vision changes. Additional information: Some back pain from sitting on bleachers for soccer- advil helped. Psoriasis Sjogren's lupus follow up Systems involved include integumentary and musculoskeletal. The problem is fluctuating. Risk factors include female gender. Symptoms are aggravated by stress. Relieving factors include antimalarials, immunosuppressants and massage. Relevant history includes positive YULI. Associated symptoms include arthralgias and fatigue. Pertinent negatives include discoid rash, dizziness, headache, muscle weakness, photosensitivity, pleuritic pain, Raynaud's phenomenon, seizures, unusual hair loss and vision changes. Additional information: Some back pain from sitting on bleachers for soccer- advil helped. Psoriasis Sjogren's lupus follow up Systems involved include integumentary and musculoskeletal. The problem is fluctuating. Risk factors include female gender. Symptoms are aggravated by stress. Relieving factors include antimalarials, immunosuppressants and massage. Relevant history includes positive YULI. Associated symptoms include arthralgias and fatigue. Pertinent negatives include discoid rash, dizziness, headache, muscle weakness, photosensitivity, pleuritic pain, Raynaud's phenomenon, seizures, unusual hair loss and vision changes. Additional information: Some back pain from sitting on bleachers for soccer- advil helped. Psoriasis Sjogren's lupus follow up Systems involved include integumentary and musculoskeletal. The problem is fluctuating. Risk factors include female gender. Symptoms are aggravated by stress. Relieving factors include antimalarials, immunosuppressants and massage. Relevant history includes positive YULI. Associated symptoms include arthralgias and fatigue. Pertinent negatives include discoid rash, dizziness, headache, muscle weakness, photosensitivity, pleuritic pain, Raynaud's phenomenon, seizures, unusual hair loss and vision changes. Additional information: Some back pain from sitting on bleachers for soccer- advil helped. Psoriasis Sjogren's lupus follow up Systems involved include integumentary and musculoskeletal. The problem is fluctuating. Risk factors include female gender. Symptoms are aggravated by stress. Relieving factors include antimalarials, immunosuppressants and massage. Relevant history includes positive YULI. Associated symptoms include arthralgias and fatigue. Pertinent negatives include discoid rash, dizziness, headache, muscle weakness, photosensitivity, pleuritic pain, Raynaud's phenomenon, seizures, unusual hair loss and vision changes. Additional information: Some back pain from sitting on bleachers for soccer- advil helped. Psoriasis Sjogren's lupus follow up Systems involved include integumentary and musculoskeletal. The problem is fluctuating. Risk factors include female gender. Symptoms are aggravated by stress. Relieving factors include antimalarials, immunosuppressants and massage. Relevant history includes positive YULI. Associated symptoms include arthralgias and fatigue. Pertinent negatives include discoid rash, dizziness, headache, muscle weakness, photosensitivity, pleuritic pain, Raynaud's phenomenon, seizures, unusual hair loss and vision changes. Additional information: Some back pain from sitting on bleachers for soccer- advil helped. Psoriasis Sjogren's lupus follow up Systems involved include integumentary and musculoskeletal. The problem is fluctuating. Risk factors include female gender. Symptoms are aggravated by stress. Relieving factors include antimalarials, immunosuppressants and massage. Relevant history includes positive YULI. Associated symptoms include arthralgias and fatigue. Pertinent negatives include discoid rash, dizziness, headache, muscle weakness, photosensitivity, pleuritic pain, Raynaud's phenomenon, seizures, unusual hair loss and vision changes. Additional information: Some back pain from sitting on bleachers for soccer- advil helped. Psoriasis Sjogren's lupus follow up Systems involved include integumentary and musculoskeletal. The problem is fluctuating. Risk factors include female gender. Symptoms are aggravated by stress. Relieving factors include antimalarials, immunosuppressants and massage. Relevant history includes positive YULI. Associated symptoms include arthralgias and fatigue. Pertinent negatives include discoid rash, dizziness, headache, muscle weakness, photosensitivity, pleuritic pain, Raynaud's phenomenon, seizures, unusual hair loss and vision changes. Additional information: Some back pain from sitting on bleachers for soccer- advil helped. Psoriasis Sjogren's lupus follow up Systems involved include integumentary and musculoskeletal. The problem is fluctuating. Risk factors include female gender. Symptoms are aggravated by stress. Relieving factors include antimalarials, immunosuppressants and massage. Relevant history includes positive YULI. Associated symptoms include arthralgias and fatigue. Pertinent negatives include discoid rash, dizziness, headache, muscle weakness, photosensitivity, pleuritic pain, Raynaud's phenomenon, seizures, unusual hair loss and vision changes. Additional information: Some back pain from sitting on bleachers for soccer- advil helped. Psoriasis Sjogren's lupus follow up Systems involved include integumentary and musculoskeletal. The problem is fluctuating. Risk factors include female gender. Symptoms are aggravated by stress. Relieving factors include antimalarials, immunosuppressants and massage. Relevant history includes positive YULI. Associated symptoms include arthralgias and fatigue. Pertinent negatives include discoid rash, dizziness, headache, muscle weakness, photosensitivity, pleuritic pain, Raynaud's phenomenon, seizures, unusual hair loss and vision changes. Additional information: Some back pain from sitting on bleachers for soccer- advil helped. Psoriasis Sjogren's lupus follow up Systems involved include integumentary and musculoskeletal. The problem is fluctuating. Risk factors include female gender. Symptoms are aggravated by stress. Relieving factors include antimalarials, immunosuppressants and massage. Relevant history includes positive YULI. Associated symptoms include arthralgias and fatigue. Pertinent negatives include discoid rash, dizziness, headache, muscle weakness, photosensitivity, pleuritic pain, Raynaud's phenomenon, seizures, unusual hair loss and vision changes. Additional information: Some back pain from sitting on bleachers for soccer- advil helped. Psoriasis Sjogren's lupus follow up Systems involved include integumentary and musculoskeletal. The problem is fluctuating. Risk factors include female gender. Symptoms are aggravated by stress. Relieving factors include antimalarials, immunosuppressants and massage. Relevant history includes positive YULI. Associated symptoms include arthralgias and fatigue. Pertinent negatives include discoid rash, dizziness, headache, muscle weakness, photosensitivity, pleuritic pain, Raynaud's phenomenon, seizures, unusual hair loss and vision changes. Additional information: Some back pain from sitting on bleachers for soccer- advil helped. Psoriasis Sjogren's Psoriasis Sjogren's lupus follow up Systems involved include integumentary and musculoskeletal. The problem is fluctuating. Risk factors include female gender. Symptoms are aggravated by stress. Relieving factors include antimalarials, immunosuppressants and massage. Relevant history includes positive YULI. Associated symptoms include arthralgias and fatigue. Pertinent negatives include discoid rash, dizziness, headache, muscle weakness, photosensitivity, pleuritic pain, Raynaud's phenomenon, seizures, unusual hair loss and vision changes. Additional information: Some back pain from sitting on bleachers for soccer- advil helped. lupus follow up Systems involved include integumentary and musculoskeletal. The problem is fluctuating. Risk factors include female gender. Symptoms are aggravated by stress. Relieving factors include antimalarials, immunosuppressants and massage. Relevant history includes positive YULI. Associated symptoms include arthralgias. Pertinent negatives include discoid rash, dizziness, fatigue, headache, muscle weakness, photosensitivity, pleuritic pain, Raynaud's phenomenon, seizures, unusual hair loss and vision changes. Additional information: Some back pain from sitting on bleachers for soccer- advil helped. lupus follow up Systems involved include integumentary and musculoskeletal. The problem is fluctuating. Risk factors include female gender. Symptoms are aggravated by stress. Relieving factors include antimalarials, immunosuppressants and massage. Relevant history includes positive YULI. Associated symptoms include arthralgias and fatigue. Pertinent negatives include discoid rash, dizziness, headache, muscle weakness, photosensitivity, pleuritic pain, Raynaud's phenomenon, seizures, unusual hair loss and vision changes. Additional information: Some back pain from sitting on bleachers for soccer- advil helped. lupus follow up Systems involved include integumentary and musculoskeletal. The problem is fluctuating. Risk factors include female gender. Symptoms are aggravated by stress. Relieving factors include antimalarials, immunosuppressants and massage. Relevant history includes positive YULI. Associated symptoms include fatigue. Pertinent negatives include discoid rash, dizziness, headache, muscle weakness, photosensitivity, pleuritic pain, Raynaud's phenomenon, seizures, unusual hair loss and vision changes. Additional information: Some back pain from sitting on bleachers for soccer- advil helped. massage helps lupus follow up Systems involved include integumentary and musculoskeletal. The problem is chronic. Risk factors include female gender. Symptoms are aggravated by stress. Relieving factors include antimalarials, immunosuppressants and massage. Relevant history includes positive YULI. Associated symptoms include fatigue. Pertinent negatives include discoid rash, dizziness, headache, muscle weakness, photosensitivity, pleuritic pain, Raynaud's phenomenon, seizures, unusual hair loss and vision changes. 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 - Up to date on Shingles and pneumonia vaccine.- No live vaccines- We discussed the possible side effects of methotrexate including, but not limited to: oral ulcers, nausea, diarrhea, rash, increased infection risk, bone marrow suppression, hepatitis, pulmonary toxicity. We discussed the need to avoid alcohol and to have regulatory lab monitoring done while taking methotrexate. We discussed that live virus vaccines are contraindicated while taking methotrexate. - We discussed the possible side effects associated with azathioprine which include, but are not limited to: Increased infection risk, bone marrow suppression, hepatitis, rash, allergic reaction/hypersensitivity reaction. We discussed the need to have regular blood test done while taking azathioprine to monitor for toxicity. We discussed that live virus vaccines are contraindicated while taking azathioprine Related to High Risk Medication Use - For sicca symptoms , I recommended conservative measures including frequent lubrication, avoiding stimulants, and regular dental and ophthalmic exams Related to Sjogren's Syndrome - Continue azathiopr ine 200 mg daily- Continue methotrexate 17.5 mg/7 tablets weekly- Continue daily folic acid- She did try to reduce medication and flared on her skin, Resumed regular medication dosage and rash resolved.- Continue tizanidine 2 mg nightly for sleep- Continue Aleve as needed (very rare), better relief with CBD oil.- Continue using tumeric and CBD oil as needed joint pains Related to Systemic lupus erythematosus - Continue Prolia ev siddhartha 6 months; Tolerated well. She had Prolia at [facility] 07/19/23.- Continue Vitamin D 1000 IU. Her Vitamin level has decreased to 90.8.- Stop taking calcium 500 mg daily, getting plenty in daily diet Related to Osteoporosis - Continue immunosuppression as above Related to Psoriatic Arthritis - Injections prove t o be helpful. Last injection 06/2023.- We can schedule her injection when she is ready. Related to Right Shoulder Pain - Continue following up with Dermatology Related to Psoriasis - Continue Prolia ev siddhartha 6 months; Tolerated well. She has an upcoming dose scheduled.- Continue Vitamin D 1000 IU. Her Vitamin level has decreased to 90.8.- Stop taking calcium 500 mg daily, getting plenty in daily diet - repeat DEXA 06/2025 Related to Age-related osteoporosis without current pathological fracture After explaining the risks and benefits of joint injection, including but not limited to, tendon atrophy, tendon rupture, thinning of the skin, bruising, bleeding, and infection, oral consent was obtained. The patient tolerated the procedure well and had immediate hemostasis. See injection note Related to Right Shoulder Pain - Continue immunosuppression as above Related to Psoriatic Arthritis - For sicca symptoms , I recommended conservative measures including frequent lubrication, avoiding stimulants, and regular dental and ophthalmic exams Related to Sjogren's Syndrome - Continue Garett carl 6 months; Tolerated well. She is late for her dose given confusion about getting this at a different location. This was reordered. - Continue Vitamin D 1000 IU. Her Vitamin level has decreased to 90.8.- Stop taking calcium 500 mg daily, getting plenty in daily diet - DEXA due now- will order ERIK Related to Osteoporosis - Labs every 12 week s CBC, CMP, ESR, CRP, UA.- Vitamin D, complements and dsDNA every 6 months. - Up to date on Shingles and pneumonia vaccine.- No live vaccines- We discussed the possible side effects of methotrexate including, but not limited to: oral ulcers, nausea, diarrhea, rash, increased infection risk, bone marrow suppression, hepatitis, pulmonary toxicity. We discussed the need to avoid alcohol and to have regulatory lab monitoring done while taking methotrexate. We discussed that live virus vaccines are contraindicated while taking methotrexate. - We discussed the possible side effects associated with azathioprine which include, but are not limited to: Increased infection risk, bone marrow suppression, hepatitis, rash, allergic reaction/hypersensitivity reaction. We discussed the need to have regular blood test done while taking azathioprine to monitor for toxicity. We discussed that live virus vaccines are contraindicated while taking azathioprine Related to High Risk Medication Use - Will schedule righ t shoulder injection with me on same day she gets DEXA. Last injection was 03/03/23 and worked well Related to Right Shoulder Pain - Continue following up with Dermatology Related to Psoriasis - Continue azathiopr ine 200 mg daily- Continue methotrexate 17.5 mg/7 tablets weekly- Continue daily folic acid- She did try to reduce medication and flared on her skin, Resumed regular medication dosage and rash resolved.- Continue tizanidine 2 mg nightly for sleep- Continue Aleve as needed (very rare), better relief with CBD oil.- Continue using tumeric and CBD oil as needed joint pains Related to Systemic lupus erythematosus Lifestyle education regarding di et Related to Body mass index [BMI] 34.0-34.9, adult - After explaining t he risks and benefits of joint injection, including but not limited to, tendon atrophy, tendon rupture, thinning of the skin, bruising, bleeding, and infection, oral consent was obtained. The patient tolerated the procedure well and had immediate hemostasis. See injection note. Related to Right Shoulder Pain Lifestyle education regarding di et Related to Body mass index [BMI] 35.0-35.9, adult - Can schedule right shoulder injection with me. Related to Right Shoulder Pain - Labs every 8-12 we eks CBC, CMP, ESR, CRP, UA.- Vitamin D, complements and dsDNA every 6 months. - Up to date on Shingles and pneumonia vaccine.- No live vaccines- We discussed the possible side effects of methotrexate including, but not limited to: oral ulcers, nausea, diarrhea, rash, increased infection risk, bone marrow suppression, hepatitis, pulmonary toxicity. We discussed the need to avoid alcohol and to have regulatory lab monitoring done while taking methotrexate. We discussed that live virus vaccines are contraindicated while taking methotrexate. - We discussed the possible side effects associated with azathioprine which include, but are not limited to: Increased infection risk, bone marrow suppression, hepatitis, rash, allergic reaction/hypersensitivity reaction. We discussed the need to have regular blood test done while taking azathioprine to monitor for toxicity. We discussed that live virus vaccines are contraindicated while taking azathioprine Related to High Risk Medication Use - Continue Garett carl 6 months; Tolerated well.- Continue Vitamin D 1000 IU. Her Vitamin level has decreased to 90.8.- Stop taking calcium 500 mg daily, getting plenty in daily diet - DEXA due 09/12/2023 Related to Osteoporosis - Continue following up with Dermatology Related to Psoriasis - For sicca symptoms , I recommended conservative measures including frequent lubrication, avoiding stimulants, and regular dental and ophthalmic exams Related to Sjogren's Syndrome - Continue immunosuppression as above Related to Psoriatic Arthritis - Continue azathiopr ine 200 mg daily- Continue methotrexate 17.5 mg/7 tablets weekly- Continue daily folic acid- She did try to reduce medication and flared on her skin, Resumed regular medication dosage and rash resolved.- Continue tizanidine 2 mg nightly for sleep- Continue Aleve as needed (very rare), better relief with CBD oil.- Continue using tumeric and CBD oil as needed joint pains- Reviewed labs from 02/09/23 Related to Systemic lupus erythematosus Lifestyle education regarding di et Related to Body mass index [BMI] 35.0-35.9, adult - Labs every 8-12 we eks CBC, CMP, ESR, CRP, UA.- Vitamin D, complements and dsDNA every 6 months. Request these labs from PCP.- Up to date on Shingles and pneumonia vaccine.- No live vaccines- We discussed the possible side effects of methotrexate including, but not limited to: oral ulcers, nausea, diarrhea, rash, increased infection risk, bone marrow suppression, hepatitis, pulmonary toxicity. We discussed the need to avoid alcohol and to have regulatory lab monitoring done while taking methotrexate. We discussed that live virus vaccines are contraindicated while taking methotrexate. - We discussed the possible side effects associated with azathioprine which include, but are not limited to: Increased infection risk, bone marrow suppression, hepatitis, rash, allergic reaction/hypersensitivity reaction. We discussed the need to have regular blood test done while taking azathioprine to monitor for toxicity. We discussed that live virus vaccines are contraindicated while taking azathioprine Related to High Risk Medication Use - Continue azathiopr ine 200 mg daily- Continue methotrexate 17.5 mg/7 tablets weekly- Continue daily folic acid- She did try to reduce medication and flared on her skin, Resumed regular medication dosage and rash resolved.- Continue tizanidine 2 mg nightly for sleep- Continue Aleve as needed (very rare), better relief with CBD oil.- Continue using tumeric and CBD oil as needed joint pains- Request labs from Dr. neri- Will schedule her for injection of trigger finger of right thumb ERIK Related to Systemic lupus erythematosus - For sicca symptoms , I recommended conservative measures including frequent lubrication, avoiding stimulants, and regular dental and ophthalmic exams Related to Sjogren's Syndrome - Continue following up with Dermatology Related to Psoriasis - Continue immunosuppression as above Related to Psoriatic Arthritis - Continue Prolia ev siddhartha 6 months; Tolerated well.- Decrease Vitamin D supplementation to 1000 IU daily- Stop taking calcium 500 mg daily, getting plenty in daily diet - DEXA due 09/12/2023 Related to Osteoporosis Lifestyle education regarding di et Related to Body mass index [BMI] 35.0-35.9, adult - Continue immunosuppression as above Related to Psoriatic Arthritis - Continue following up with Dermatology Related to Psoriasis - For sicca symptoms , I recommended conservative measures including frequent lubrication, avoiding stimulants, and regular dental and ophthalmic exams. Related to Sjogren's Syndrome - Continue Prolia ev siddhartha 6 months; Tolerated well.- Continue Vitamin D supplementation 2000 IU daily- Continue calcium 500 mg daily - DEXA due 09/12/2023 Related to Osteoporosis - Continue azathiopr ine 200 mg daily- Continue methotrexate 17.5 mg/7 tablets weekly- Continue daily folic acid- She did try to reduce medication and flared on her skin, Resumed regular medication dosage and rash resolved.- Continue tizanidine 2 mg nightly for sleep- Continue Aleve as needed (very rare), better relief with CBD oil.- Continue using tumeric and CBD oil as needed joint pains- Request labs from Dr. neri Related to Systemic lupus erythematosus - Labs every 8-12 we eks CBC, CMP, ESR, CRP, UA.- Vitamin D, complements and dsDNA every 6 months. Request these labs from PCP.- Up to date on Shingles and pneumonia vaccine.- No live vaccines- We discussed the possible side effects of methotrexate including, but not limited to: oral ulcers, nausea, diarrhea, rash, increased infection risk, bone marrow suppression, hepatitis, pulmonary toxicity. We discussed the need to avoid alcohol and to have regulatory lab monitoring done while taking methotrexate. We discussed that live virus vaccines are contraindicated while taking methotrexate. - We discussed the possible side effects associated with azathioprine which include, but are not limited to: Increased infection risk, bone marrow suppression, hepatitis, rash, allergic reaction/hypersensitivity reaction. We discussed the need to have regular blood test done while taking azathioprine to monitor for toxicity. We discussed that live virus vaccines are contraindicated while taking azathioprine. Related to High Risk Medication Use - Continue immunosuppression as above Related to Psoriatic Arthritis - Continue following up with Dermatology Related to Psoriasis - Continue azathiopr ine 200 mg daily- Continue methotrexate 17.5 mg/7 tablets weekly- Continue daily folic acid- She did try to reduce medication and flared on her skin, Resumed regular medication dosage and rash resolved.- Continue tizanidine 2 mg nightly for sleep- Continue Aleve as needed (very rare), better relief with CBD oil.- Continue using tumeric and CBD oil as needed joint pains- Request labs from Dr. neri Related to Systemic lupus erythematosus - For sicca symptoms , I recommended conservative measures including frequent lubrication, avoiding stimulants, and regular dental and ophthalmic exams. Related to Sjogren's Syndrome - Labs every 8-12 we eks CBC, CMP, ESR, CRP, UA.- Vitamin D, complements and dsDNA every 6 months. Request these labs from PCP.- Up to date on Shingles and pneumonia vaccine.- No live vaccines- We discussed the possible side effects of methotrexate including, but not limited to: oral ulcers, nausea, diarrhea, rash, increased infection risk, bone marrow suppression, hepatitis, pulmonary toxicity. We discussed the need to avoid alcohol and to have regulatory lab monitoring done while taking methotrexate. We discussed that live virus vaccines are contraindicated while taking methotrexate. - We discussed the possible side effects associated with azathioprine which include, but are not limited to: Increased infection risk, bone marrow suppression, hepatitis, rash, allergic reaction/hypersensitivity reaction. We discussed the need to have regular blood test done while taking azathioprine to monitor for toxicity. We discussed that live virus vaccines are contraindicated while taking azathioprine. Related to High Risk Medication Use - Continue Prolia ev siddhartha 6 months; Tolerated well.- Continue Vitamin D supplementation 2000 IU daily- Continue calcium 500 mg daily - DEXA due 09/12/2023 Related to Osteoporosis Lifestyle education regarding di et Related to Body mass index [BMI] 35.0-35.9, adult - For sicca symptoms , I recommended conservative measures including frequent lubrication, avoiding stimulants, and regular dental and ophthalmic exams. Related to Sjogren's Syndrome - Continue immunosuppression as above Related to Psoriatic Arthritis - Continue azathiopr ine 200 mg daily- Continue methotrexate 17.5 mg/7 tablets weekly- Continue daily folic acid- Continue tizanidine 2 mg nightly for sleep- Continue Aleve as needed (very rare), better relief with CBD oil.- Continue using tumeric and CBD oil as needed joint pains- Labs at next office visit (Full set with lupus labs/Vitamin D) Related to Systemic lupus erythematosus - Continue Prolia ev siddhartha 6 months; Tolerated well.- Continue Vitamin D supplementation 2000 IU daily- Continue calcium 500 mg daily - DEXA due 03/13/2023 Related to Osteoporosis - Labs every 8-12 we eks CBC, CMP, ESR, CRP, UA, - Vitamin D, complements and dsDNA every 6 months- Up to date on Shingles and pneumonia vaccine.- No live vaccines- Will obtain Vitamin D at next office visit- We discussed the possible side effects of methotrexate including, but not limited to: oral ulcers, nausea, diarrhea, rash, increased infection risk, bone marrow suppression, hepatitis, pulmonary toxicity. We discussed the need to avoid alcohol and to have regulatory lab monitoring done while taking methotrexate. We discussed that live virus vaccines are contraindicated while taking methotrexate. - We discussed the possible side effects associated with azathioprine which include, but are not limited to: Increased infection risk, bone marrow suppression, hepatitis, rash, allergic reaction/hypersensitivity reaction. We discussed the need to have regular blood test done while taking azathioprine to monitor for toxicity. We discussed that live virus vaccines are contraindicated while taking azathioprine. Related to High Risk Medication Use - Continue following up with Dermatology Related to Psoriasis - continue immunosuppression as above Related to Psoriatic Arthritis - She did have some around her nails when cleaning house, under control now. Related to Psoriasis For sicca symptoms, I recommended conservative measures including frequent lubrication, avoiding stimulants, and regular dental and ophthalmic exams. Related to Sjogren's Syndrome - continue azathiopr ine and methotrexate- she takes aleve as needed (very rare), better relief with CBD oil.- she is using tumeric and CBD oil instead for as needed joint pains- I will give her a lab order- 12/2021 labs stable.- Dermal mucinosis rash on bilateral arms and right leg are more erythematous. Related to Systemic lupus erythematosus - continue Prolia; t olerated well.- continue vitamin D supplementation 2000 IU daily- will add calcium 500 mg daily - Next Dexa due 03/13/2023 Related to Osteoporosis - Continue CBC, CMP, ESR, CRP, UA. last done 06/2020. every 8-12 weeks. Get vitamin D, complements and dsDNA every 6 months- Up to date on Shingles and pneumonia vaccine.- No live vaccines.- last vitamin D 01/2020 Related to High Risk Medication Use Lifestyle education regarding di et Related to Body mass index [BMI] 34.0-34.9, adult - No psoriasis at this time. Rel ated to Psoriasis For sicca symptoms, I recommended conservative measures including frequent lubrication, avoiding stimulants, and regular dental and ophthalmic exams. Related to Sjogren's Syndrome - continue azathiopr ine and methotrexate- she takes aleve as needed (very rare), better relief with CBD oil.- she is using tumeric and CBD oil instead for as needed joint pains- I will mail her a lab order to complete prior to next visit.- I will request recent labs from PCP. Related to Systemic lupus erythematosus - continue immunosuppression as above Related to Psoriatic Arthritis - Continue CBC, CMP, ESR, CRP, UA. last done 06/2020. every 8-12 weeks. Get vitamin D, complements and dsDNA every 6 months- Up to date on Shingles and pneumonia vaccine.- No live vaccines.- last vitamin D 01/2020 Related to High Risk Medication Use - continue Prolia; t olerated well.- continue vitamin D supplementation 2000 IU daily- will add calcium 500 mg daily - Next Dexa due 03/13/2023 Related to Osteoporosis Lifestyle education regarding di et Related to Body mass index [BMI] 34.0-34.9, adult - continue Prolia; t olerated well.- continue vitamin D supplementation 2000 IU daily- will add calcium 500 mg daily - Next Dexa due 03/13/2023 Related to Osteoporosis - improved with injection 12/03/19 Related to Trigger finger - Continue CBC, CMP, ESR, CRP, UA. last done 06/2020. every 8-12 weeks. Get vitamin D, complements and dsDNA every 6 months- Up to date on Shingles and pneumonia vaccine.- No live vaccines.- last vitamin D 01/2020 Related to High Risk Medication Use - continue azathiopr ine and methotrexate- she takes aleve as needed (very rare), better relief with CBD oil.- she is using tumeric and CBD oil instead for as needed joint pains- I will mail her a lab order to complete prior to next visit.- I will request recent labs from PCP. Related to Systemic lupus erythematosus - No psoriasis at this time. Rel ated to Psoriasis For sicca symptoms, I recommended conservative measures including frequent lubrication, avoiding stimulants, and regular dental and ophthalmic exams. Related to Sjogren's Syndrome - continue immunosuppression as above Related to Psoriatic Arthritis Lifestyle education regarding di et Related to Body mass index [BMI] 34.0-34.9, adult - No psoriasis at this time. Rel ated to Psoriasis - improved with injection 12/03/19 Related to Trigger finger - continue immunosuppression as above Related to Psoriatic Arthritis - continue Prolia; t olerated well.- continue vitamin D supplementation 2000 IU daily- will add calcium 500 mg daily - Next Dexa due 03/13/2023 Related to Osteoporosis - continue azathiopr ine and methotrexate- she takes aleve as needed (very rare), better relief with CBD oil.- she is using tumeric and CBD oil instead for as needed joint pains- check labs today and every 3 months while on these medications; given a new standing order. Reviewed most recent labs. Related to Systemic lupus erythematosus For sicca symptoms, I recommended conservative measures including frequent lubrication, avoiding stimulants, and regular dental and ophthalmic exams. Related to Sjogren's Syndrome - Continue CBC, CMP, ESR, CRP, UA. last done 06/2020. every 8-12 weeks. Get vitamin D, complements and dsDNA every 6 months- Up to date on Shingles and pneumonia vaccine.- No live vaccines.- last vitamin D 01/2020 Related to High Risk Medication Use Lifestyle education regarding di et Related to Body mass index [BMI] 35.0-35.9, adult - injected right celina mb tendon sheath with 0.25 cc 80 mg depomedrol (20 mg) per procedure note Related to Trigger finger - No psoriasis at this time. Rel ated to Psoriasis For sicca symptoms, I recommended conservative measures including frequent lubrication, avoiding stimulants, and regular dental and ophthalmic exams. Related to Sjogren's Syndrome - continue immunosuppression as above Related to Psoriatic Arthritis - Continue CBC, CMP, ESR, CRP, UA. last done 06/2020. every 8-12 weeks. Get vitamin D, complements and dsDNA every 6 months- Up to date on Shingles and pneumonia vaccine.- No live vaccines.- last vitamin D 01/2020 Related to High Risk Medication Use - continue azathiopr ine and methotrexate- she takes aleve as needed (very rare), better relief with CBD oil.- she is using tumeric and CBD oil instead for as needed joint pains- check labs today and every 3 months while on these medications; given a new standing order. Reviewed most recent labs. Related to Systemic lupus erythematosus - continue Prolia; t olerated well.- continue vitamin D supplementation 2000 IU daily- Next Dexa due 12/2020; ordered for next visit Related to Osteoporosis Lifestyle education regarding di et Related to Body mass index [BMI] 36.0-36.9, adult - continue Prolia; t olerated well.- continue vitamin D supplementation 2000 IU daily- Next Dexa due 12/2020 Related to Osteoporosis - Continue CBC, CMP, ESR, CRP, UA. last done 06/2020. every 8-12 weeks. Get vitamin D, complements and dsDNA every 6 months- Up to date on Shingles and pneumonia vaccine.- No live vaccines.- last vitamin D 01/2020 Related to High Risk Medication Use - continue immunosuppression as above Related to Psoriatic Arthritis - No psoriasis at this time. Rel ated to Psoriasis For sicca symptoms, I recommended conservative measures including frequent lubrication, avoiding stimulants, and regular dental and ophthalmic exams. Related to Sjogren's Syndrome - continue azathiopr ine and methotrexate- she takes aleve as needed (very rare), better relief with CBD oil.- she is using tumeric and CBD oil instead for as needed joint pains- check labs today and every 3 months while on these medications; given a new standing order. These were last done in June 2020. Related to Systemic lupus erythematosus Lifestyle education regarding di et Related to Body mass index [BMI] 35.0-35.9, adult - Continue CBC, CMP, ESR, CRP, UA every 8-12 weeks. Get vitamin D, complements and dsDNA every 6 months- Up to date on Shingles and pneumonia vaccine.- No live vaccines.- last vitamin D 01/2020 Related to High Risk Medication Use - continue azathiopr ine and methotrexate- she takes aleve as needed (very rare), better relief with CBD oil.- she is using tumeric and CBD oil instead for as needed joint pains- check labs today and every 3 months while on these medications; given a new standing order Related to Systemic lupus erythematosus For sicca symptoms, I recommended conservative measures including frequent lubrication, avoiding stimulants, and regular dental and ophthalmic exams. Related to Sjogren's Syndrome - continue Prolia; t olerated well.- continue vitamin D supplementation 2000 IU daily- Next Dexa due 12/2020 Related to Osteoporosis - continue immunosuppression as above Related to Psoriatic Arthritis - No psoriasis at this time. Rel ated to Psoriasis Lifestyle education regarding di et Related to Body mass index (BMI) 34.0-34.9, adult - Continue CBC, CMP, ESR, CRP, UA every 8-12 weeks. Get vitamin D, complements and dsDNA every 6 months- Up to date on Shingles and pneumonia vaccine.- No live vaccines. Related to High Risk Medication Use - continue immunosuppression as above Related to Psoriatic Arthritis For sicca symptoms, I recommended conservative measures including frequent lubrication, avoiding stimulants, and regular dental and ophthalmic exams. Related to Sjogren's Syndrome - continue Prolia; t olerated well.- continue vitamin D supplementation 2000 IU daily Related to Osteoporosis - No psoriasis at this time. Rel ated to Psoriasis - continue azathiopr ine and methotrexate- she takes aleve as needed (very rare), better relief with CBD oil.- she is using tumeric and CBD oil instead for as needed joint pains- check labs today and every 3 months while on these medications; given a new standing order Related to Systemic lupus erythematosus - continue Prolia; t olerated well.- continue vitamin D supplementation 2000 IU daily Related to Osteoporosis - Continue CBC, CMP, ESR, CRP, UA every 8-12 weeks. Get complements and dsDNA every 6 months- Up to date on Shingles and pneumonia vaccine.- No live vaccines. Related to High Risk Medication Use - continue immunosuppression as above Related to Psoriatic Arthritis For sicca symptoms, I recommended conservative measures including frequent lubrication, avoiding stimulants, and regular dental and ophthalmic exams. Related to Sjogren's Syndrome - continue azathiopr ine and methotrexate- she takes aleve as needed (very rare), better relief with CBD oil.- she is using tumeric and CBD oil instead for as needed joint pains- check labs today and every 3 months while on these medications; given a new standing order Related to Systemic lupus erythematosus - No psoriasis at this time. Rel ated to Psoriasis Lifestyle education regarding di et Related to Body mass index (BMI) 35.0-35.9, adult - No psoriasis at this time. Rel ated to Psoriasis - continue azathiopr ine and methotrexate- she takes aleve as needed (very rare), better relief with CBD oil.- she is using tumeric and CBD oil instead for as needed joint pains- check labs today Related to Systemic lupus erythematosus - Continue CBC, CMP, ESR, CRP, UA every 8-12 weeks - Up to date on Shingles and pneumonia vaccine.-No live vaccines. Related to High Risk Medication Use - continue immunosup pression as above- Plaquenil stopped working. Related to Psoriatic Arthritis For sicca symptoms, I recommended conservative measures including frequent lubrication, avoiding stimulants, and regular dental and ophthalmic exams. Related to Sjogren's Syndrome DEXA 12/26/18osteoporo sis femoral neck (-2), L spine and wristProlia tolerated well. Related to Osteoporosis For sicca symptoms, I recommended conservative measures including frequent lubrication, avoiding stimulants, and regular dental and ophthalmic exams. Related to Sjogren's Syndrome DEXA 12/26/18osteoporo sis femoral neck (-2), L spine and wristDiscussed oral meds, Prolia, Reclast, and Forteo/Tymlos today. Will have Crista check Prolia benefits Related to Osteoporosis - Continue CBC, CMP, ESR, CRP, UA every 8-12 weeks - Up to date on Shingles and pneumonia vaccine.-No live vaccines. Related to High Risk Medication Use - continue azathiopr ine and methotrexate- she takes aleve as needed (very rare)- she is using tumeric and CBD oil instead for as needed joint pains- check labs today Related to Systemic lupus erythematosus - continue immunosup pression as above- unclear why plaquenil was stopped Related to Psoriatic Arthritis - Nopsoriasis at this time. Rela nesha to Psoriasis DEXA today osteoporo sis femoral neck (-2), L spine and wristDiscussed oral meds, Prolia, Reclast, and Forteo/Tymlos today. Will have Crista check Prolia benefits Related to Osteoporosis - continue immunosup pression as above- consider repeat XR of the hands to document progression.- unclear why plaquenil was stopped Related to Psoriatic Arthritis - continue azathiopr ine and methotrexate- she takes aleve as needed (very rare)- she is using tumeric and CBD oil instead for as needed joint pains- check labs today Related to Systemic lupus erythematosus For sicca symptoms, I recommended conservative measures including frequent lubrication, avoiding stimulants, and regular dental and ophthalmic exams. Related to Sjogren's Syndrome - Continue CBC, CMP, ESR, CRP, UA evry 8-12 weeks - will need to discuss vaccines at next visit Related to High Risk Medication Use - continue immunosuppression as above Related to Psoriasis For sicca symptoms, I recommended conservative measures including frequent lubrication, avoiding stimulants, and regular dental and ophthalmic exams. Related to Sjogren's Syndrome - continue immunosuppression as above Related to Psoriasis - continue azathiopr ine and methotrexate- she takes aleve as needed (very rare)- she is using tumeric and CBD oil instead for as needed joint pains- will get lupus activity labs today Related to Systemic lupus erythematosus - continue immunosup pression as above- consider repeat XR of the hands to document progression.- unclear why plaquenil was stopped Related to Psoriatic Arthritis - Continue CBC, CMP, ESR, CRP, UA evry 8-12 weeks - will need to discuss vaccines at next visit- due for DEXA; will obtain with next visit Related to High Risk Medication Use Lifestyle education regarding di et Related to Body mass index (BMI) 34.0-34.9, adult Minimal psoriasis on the hands a t times Related to Psoriatic Arthritis Continue CBC, CMP ev siddhartha 6 weeks urinalysis sedimentation rate every 12. No recent infections. She has a good prognosis. Return in 3-4 months. Related to High Risk Medication Use Minimal psoriasis on the hands a t times Related to Psoriatic Arthritis Continue CBC, CMP ev siddhartha 6 weeks urinalysis sedimentation rate every 12. No recent infections. She has a good prognosis. Return in 3-4 months. Related to High Risk Medication Use Patient is actually doing extremely well except for some back pain that's been relieved with ibuprofen. Related to Systemic lupus erythematosus Continue CBC, CMP ev siddhartha 6 weeks urinalysis sedimentation rate every 12. I reviewed her latest labs and everything was normal. No recent infections. Related to High Risk Medication Use arsalan is doing extr latanya well on methotrexate and azathioprine. No recent psoriasis Related to Psoriatic Arthritis She is followed by o phthalmology. She is not having really that much trouble right now with dry eyes or dry mouth. Related to Sjogren's Syndrome Continue CBC, CMP ev siddhartha 6 weeks urinalysis sedimentation rate every 12. I reviewed her latest labs and everything was normal. No recent infections. Related to High Risk Medication Use arsalan is doing extr latanya well on methotrexate and azathioprine. No recent psoriasis Related to Psoriatic Arthritis She is having some m uscle aching that I think is probably more from her neck and back. Massage greatly helps. She has not had swelling of her joints from the lupus/psoriasis Related to Systemic lupus erythematosus She is followed by o phthalmology. She is not having really that much trouble right now with dry eyes or dry mouth. Related to Sjogren's Syndrome arsalan is doing extr latanya well on methotrexate and azathioprine. she hasn't really had psoriasis. She hasn't had a lupus rash.she feels that she is doing well on this combination Related to Psoriatic Arthritis Continue CBC, CMP ev siddhartha 6 weeks urinalysis sedimentation rate every 12. I reviewed her latest labs and everything was normal. No recent infections. Related to High Risk Medication Use no major difficultie s with lupus. No psoriasis or joint swelling Related to Systemic lupus erythematosus She is not really martinez ving that much mouth dryness. She did loose a tooth. She is followed by ophthalmology for her eyes Related to Sjogren's Syndrome Assessments Type Assessment Date No Information Patient Care Teams Name Effective Dates (start - stop) Status Members No Information
--- OUTSIDE RECORDS SUMMARY | 2024-03-06 09:17 | XMS_ITS ---
Author Name Unknown Organization Unknown ALLERGIES AND ADVERSE REACTIONS No information ASSESSMENT No information CHIEF COMPLAINT No information MEDICATIONS No information OBJECTIVE DATA No information PHYSICAL EXAMINATION No information TREATMENT PLAN Planned Care Start Date Provider Encounter for Check-up [id number] AC Neri PROBLEMS No information RESULTS No information REVIEW OF SYSTEMS No information SUBJECTIVE DATA No information VITAL SIGNS No information
[2024-03-06] MEDS: TETRACAINE 0.5% OPTH SOL 15ML OP ×3 (10:00→10:15)
[2024-03-06] MEDS: PHENYLEPHRINE 2.5% OPHTH SOLN 2ML OP ×3 (10:00→10:10)
[2024-03-06] MEDS: CYCLOPENTOLATE 2% OPHTH SOLN 2ML BOTTLE OP ×3 (10:00→10:10)
[2024-03-06 10:12] VITALS: BP 175/85; PULSE 74; RESP 18; TEMP 36.2; O2SAT 98
[2024-03-06 11:25] VITALS: BP 164/74; PULSE 60; RESP 18; TEMP 36.6; O2SAT 95
[2024-03-06] MEDS: MIDAZOLAM 2MG/2ML VIAL 2 MG (11:25)
[2024-03-06] MEDS: TOBRAMYCIN/DEX OPTH SUSP 2.5ML OP (11:27)
[2024-03-06] MEDS: TIMOLOL 0.5% OPTH SOLN 5ML OP (11:27)
[2024-03-06] MEDS: LIDOCAINE 1% PF 2ML AMPULE 2 ML IJ (11:27)
[2024-03-06 11:30] VITALS: BP 141/63; PULSE 58; RESP 18; TEMP 36.6; O2SAT 94
[2024-03-06 11:35] VITALS: BP 145/66; PULSE 57; RESP 18; TEMP 36.6; O2SAT 95
[2024-03-06 11:40] VITALS: BP 127/70; PULSE 58; RESP 18; TEMP 36.6; O2SAT 96
[2024-03-06 11:42] VITALS: BP 152/80; PULSE 69; RESP 16; TEMP 36.2; O2SAT 95
--- NOTE | 2024-03-06 13:09 | HMH.PROCNOTE ---
[facility] Procedure Note Date: 03/06/24 Time: 13:09 Procedure Note:: Preoperative Diagnosis: Cataract combined NS Cortical Complex [Left] Eye Postop diagnosis: same Operation: Microscopic phacoemulsification with intraocular lens implant [Left] Eye Specimen: None Blood Loss: None The patient was examined in the office with a complaint of poor vision in the [left] eye. The patient reports that this interferes with ADLs such as reading, watching TV and/or driving or the vision is like looking through a foggy haze and is very troubling. The patient was examined and found to have a visually significant cataract with best corrected vision of [20/400] by refraction and/or glare testing. Treatment options, risks and benefits were explained and the patient elected to have cataract surgery in an attempt to improve their vision. The patient had the eye anesthetized with topical tetracaine, the eye ways prepped and draped in the usual fashion for cataract surgery. A paracentesis and a temporal keratotomy were made. 0.2cc of 1% lidocaine PF was placed into the anterior chamber. And aqueous/viscoelastic exchange was done and a 360 degree capsulorexis was performed. Through hydrodissection and delineation with BSS on a cannula was done. The lens nucleus was phecoemulsified with CDE of [17.15]. Residual cortical material was removed using automated I&A The capsular bag was deepened with viscoelastica and a PCIOL was placed in the capsular bag with good centration and stability. Residual viscoelastic was removed using automated I&A. The keratotomy incision was hydrated with BSS on a cannula. The wound were checked and found to be water tight. IOP was checked digitally and adjusted as needed so as not to be too high. 1 drop of timolol 0.5%, ofloxacin, prednisolone acetate and ketorolac was instilled and eye shield taped over the eye. The patient was taken to recovery in good condition and will be seen postoperatively.
[2024-03-06 16:46] LABS: POC Glucose,Bedside 118 (70-110)
== END 2024-03-06 11:50 | disposition home or self-care (01) ==
LOC: OR 09:15
PROVIDERS: PCP Nurse Practitioner; Visit Provider Ophthalmology
PROC: (CPT 66984; principal; 2024-03-06 11:30)
DX: H25.12 Age-related nuclear cataract, left eye (principal); H53.8 Other visual disturbances; E11.9 Type 2 diabetes mellitus without complications; Z79.84 Long term (current) use of oral hypoglycemic drugs
CPT/HCPCS: 66984; 82962; J2250; V2632

== ENCOUNTER 2024-06-27 12:58 | Outpatient (CLI) | payer MEDICARE, OTHER, SELFPAY ==
[2024-06-27 13:36] LABS: Basophils % 0.2 % (0.1-2.0); Eosinophils % 0.1 % (0.1-12.0); Hematocrit 42.9 % (37.0-47.0); Hemoglobin 13.6 g/dL (12.2-16.2); Lymphocytes # 0.5 K/mm3 (0.7-4.5); Lymphocytes % 12.4 % (10-50); Mean Corpuscular HGB Conc 31.7 g/dL (31.8-35.4); Mean Corpuscular Hemoglobin 36.7 pg (27.0-31.2); Mean Corpuscular Volume 115.8 fl (81-99); Mean Platelet Volume 6.6 fl (7.4-10.4); Monocytes # 0.3 K/mm3 (0.1-1.0); Monocytes % 7.6 % (1.7-9.3); Neutrophils # 2.9 K/mm3 (1.8-7.8); Neutrophils % 79.7 % (37.0-80.0); Platelet Count 483 K/mm3 (142-424); Red Cell Distribution Width 15.6 % (11.5-17.5); White Blood Count 3.7 K/mm3 (4.8-10.8)
[2024-06-27 13:43] LABS: Alanine Aminotransferase 24 U/L (12-78); Albumin Level 3.9 g/dl (3.5-5.0); Albumin/Globulin Ratio 1.6 (1.1-1.8); Alkaline Phosphatase 67 U/L (38-126); Anion Gap 7.3 mEq/L (5-15); Aspartate Amino Transferase 34 U/L (14-36); Bilirubin,Total 0.8 mg/dl (0.2-1.3); Blood Urea Nitrogen 21 mg/dl (7-17); Carbon Dioxide 28 mmol/L (22.0-30.0); Chloride 103 mmol/L (98-107); Estimated Glomerular Filt Rate 120 ml/min (>60); GFR (African American) 145 ML/MIN (>60); Globulin 2.4 g/dL (1.3-3.2); Glucose 141 mg/dl (74-100); Potassium 4.3 mmoL/L (3.5-5.1); Sodium 134 mmol/L (136-145); Total Protein,Serum 6.3 g/dl (6.3-8.2)
[2024-06-27 13:48] LABS: C-Reactive Protein 3.7 mg/L (0-4)
[2024-06-28 08:54] LABS: Complement C3 115 mg/dL (82-167)
[2024-06-28 15:59] LABS: Alpha-1-Globulin 0.3 g/dL (0.0-0.4); Alpha-2-Globulin 0.6 g/dL (0.4-1.0); Gamma Globulin 0.6 g/dL (0.4-1.8); Protein, Total 6.5 g/dL (6.0-8.5)
[2024-08-07 14:15] LABS: PDF SCANNED IMAGE
== END 2024-06-27 23:59 | disposition home or self-care (01) ==
LOC: LAB 12:59
PROVIDERS: PCP Nurse Practitioner; Visit Provider Nurse Practitioner Family
DX: M32.8 Other forms of systemic lupus erythematosus (principal); L40.50 Arthropathic psoriasis, unspecified; M35.00 Sjogren syndrome, unspecified; Z79.899 Other long term (current) drug therapy
CPT/HCPCS: 36415; 80053; 84155; 84165; 85025; 86140; 86161; 86334

== ENCOUNTER 2025-02-12 13:01 | Outpatient (CLI) | payer MEDICARE, OTHER, SELFPAY ==
[2025-02-12 13:14] VITALS: BMI 32.9
[2025-02-12 13:17] VITALS: BP 147/75; PULSE 69; RESP 18; TEMP 36.6; O2SAT 98
[2025-02-12] MEDS: DENOSUMAB 60 MG/ML SYRINGE SUBCUT (13:17)
[2025-02-12 13:40] LABS: Chloride 101 mmol/L (98-107)
[2025-02-12 13:41] LABS: Albumin Level 3.9 g/dl (3.5-5.0); Potassium 3.9 mmoL/L (3.5-5.1); Sodium 135 mmol/L (136-145)
[2025-02-12 13:43] LABS: Alanine Aminotransferase 27 U/L (12-78); Anion Gap 9.9 mEq/L (5-15); Aspartate Amino Transferase 41 U/L (14-36); Blood Urea Nitrogen 20 mg/dl (7-17); Carbon Dioxide 28 mmol/L (22.0-30.0); Creatinine Clearance Estimated 61 mL/min (50-200); Estimated Glomerular Filt Rate 120 ml/min (>60); GFR (African American) 145 ML/MIN (>60)
[2025-02-12 13:44] LABS: Albumin/Globulin Ratio 1.5 (1.1-1.8); Alkaline Phosphatase 61 U/L (38-126); Bilirubin,Total 0.9 mg/dl (0.2-1.3); Calcium 9.7 mg/dl (8.4-10.2); Globulin 2.6 g/dL (1.3-3.2); Glucose 148 mg/dl (74-100); Total Protein,Serum 6.5 g/dl (6.3-8.2)
[2025-02-12 14:17] LABS: 25-OH Vitamin D, Total 86.7 ng/mL (30-100)
== END 2025-02-12 13:30 | disposition home or self-care (01) ==
LOC: INF 13:03
PROVIDERS: PCP Nurse Practitioner; Visit Provider Nurse Practitioner Family
DX: M81.8 Other osteoporosis without current pathological fracture (principal)
CPT/HCPCS: 36415; 80053; 82306; 96372; J0897

== ENCOUNTER 2025-05-14 12:06 | Outpatient (CLI) | payer MEDICARE, OTHER, SELFPAY ==
--- OUTSIDE RECORDS SUMMARY | 2025-05-14 12:12 | XMS_ITS | Encounter Summary ---
[facility] [address] [place] [address] Care Team Providers Care Chronometer Repairer Name Role Phone Claribel Mancera APRN Primary Care Provider [phone] Encounter Details Date Type Department Care Team (Late Contact Info) Description 02/18/2025 Results Follow-Up [facility] [address] [address] Daylin Gallegos APRN [address] [address] Social History Tobacco Use Types Packs/Day Years Used Date Smoking Tobacco: Never Passive Smoke Exposure: Past Smokeless Tobacco: Never Alcohol Use Standard Drinks/Week Comments Never 0 (1 standard drink = 0.6 oz pur e alcohol) Comments No Sex and Gender Information Value Date Recorded Sex Assigned at Not on file Legal Sex Female 12:03 PM EDT Gender Identity Not on file Sexual Orientation Not on file documented as of this encounter Plan of Treatment Upcoming Encounters Date Type Department Care Team (Late st Contact Info) Description 05/20/2025 1:30 PM EDT Office Visit [facility] [address] [address] Daylin Gallegos APRN [address] [address] documented as of this encounter Visit Diagnoses Not on filedocumented in this encounter Care Teams Chronometer Repairer Relationship Specialty Start Date End Date Claribel Mancera APRN PCP - General Emergency Medicine 08/22/23 documented as of this encounter
--- OUTSIDE RECORDS SUMMARY | 2025-05-14 12:12 | XMS_ITS | Encounter Summary ---
[facility] [address] [place] [address] Care Team Providers Care Cupola Mechanic Name Role Phone Claribel Mancera APRN Primary Care Provider [phone] Reason for Visit * Reason Comments Med Refill Encounter Details Date Type Department Care Team (Late st Contact Info) Description 04/24/2025 Refill [facility] [address] [place] [address] Daylin Gallegos APRN 330 [facility] [address] [place], [place] [id number] Social History Tobacco Use Types Packs/Day Years [...] on file documented as of this encounter Miscellaneous Notes * Telephone Encounter - Renetta Edmondson MA - 04/24/2025 9:30 AM EDT Rx Refill Note Requested Prescriptions Pending Prescriptions Disp Refills tiZANidine (ZANAFLEX) 2 MG tablet [Pharmacy Med Name: tizanidine 2 mg tablet] 30 tablet 4 Sig: TAKE ONE TABLET BY MOUTH AT BEDTIME Last office visit with prescribing clinician: 11/13/2024 Last telemedicine visit with prescribing clinician: Visit date not found Next office visit with prescribing clinician: 05/20/2025 Renetta Edmondson MA 04/24/25, 09:30 EDT Medication warning label appeared when attempting to send. Please advise. documented in this encounter Plan of Treatment Upcoming Encounters Date Type Department Care Team (Late st Contact Info) Description 05/20/2025 1:30 PM EDT Office Visit [facility] [address] [address] Daylin Gallegos APRN [address] [address] documented as of this encounter Visit Diagnoses Not on filedocumented in this encounter Care Teams Cupola Mechanic Relationship Specialty Start Date End Date Claribel Mancera APRN PCP - General Emergency Medicine 08/22/23 documented as of this encounter
--- OUTSIDE RECORDS SUMMARY | 2025-05-14 12:12 | XMS_ITS | Clinical Summary ---
Author Organization [facility] Address [address] [place] [address] Care Team Providers Care Movement Therapist Name Role Phone Claribel Mancera APRN Primary Care Provider [phone] Allergies Active Allergy Reactions Criticality Noted Date Comments Misc. Sulfonamide Containing Compounds Hives Medium 03/06/2024 Sulfa Sulfa Antibiotics Hives Medium 03/08/2024 Rash, itching Medications metFORMIN ER (GLUCOPHAGE-XR) 500 MG 24 hr tablet Take 1 tablet by mouth Daily. With evening meal Active hydroCHLOROthia zide 25 MG tablet Take 0.5 tablets by mouth Daily. Active ALPRAZolam (XANAX) 1 MG tablet Take 1 tablet by mouth Daily As Needed for Anxiety. Active Mouthwashes (Biotene dry mouth) liquid liquid Take 15 mL by mouth Daily. Active carvedilol (COREG) 12.5 MG tablet Take 1 tablet by mouth 2 (Two) Times a Day With Meals. Active magnesium cl-calcium carbonate (Slow-Mag) 71.5-119 MG tablet delayed-release tablet Take 2 tablets by mouth Daily. Active levothyroxine (SYNTHROID, LEVOTHROID) 137 MCG tablet Take 1 tablet by mouth Daily. Active denosumab (Prolia) 60 MG/ML solution prefilled syringe syringe Inject 1 mL under the skin into the appropriate area as directed Every 6 (Six) Months. In the upper arm upper thigh or abdomen Active amLODIPine (NORVASC) 2.5 MG tablet Take 1 tablet by mouth Daily. Active escitalopram (LEXAPRO) 20 MG tablet Take 1 tablet by mouth Daily. Active fluocinonide (LIDEX) 0.05 % cream Apply 1 Application topically to the appropriate area as directed As Needed. Active losartan-hydroc hlorothiazide (HYZAAR) 50-12.5 MG per tablet Take 1 tablet by mouth Daily. 4 Active TiZANidine (Zanaflex) 2 MG capsuleIndicati ons:Other forms of systemic lupus erythematosus, unspecified organ involvement status,High risk medication use Take 1 capsule by mouth Every Night. 30 capsule 4 5 Active methotrexate 2.5 MG tabletIndicatio ns:Other forms of systemic lupus erythematosus, unspecified organ involvement status,Sjogren' s syndrome, with unspecified organ involvement,Pso riatic arthritis,High risk medication use Take 7 tablets by mouth 1 (One) Time Per Week. 35 tablet 3 5 Active ibuprofen (ADVIL,MOTRIN) 200 MG tabletIndicatio ns:High risk medication use Take 1 tablet by mouth Every 8 (Eight) Hours As Needed (as needed with food). 270 tablet 1 5 Active folic acid (FOLVITE) 1 MG tabletIndicatio ns:Other forms of systemic lupus erythematosus, unspecified organ involvement status,High risk medication use Take 3 tablets by mouth Daily. Except the day of methotrexate 90 tablet 4 5 Active azaTHIOprine (IMURAN) 50 MG tabletIndicatio ns:Other forms of systemic lupus erythematosus, unspecified organ involvement status,Sjogren' s syndrome, with unspecified organ involvement,Hig h risk medication use TAKE TWO TABLETS BY MOUTH 2 TIMES A DAY 120 tablet 3 5 Active tiZANidine (ZANAFLEX) 2 MG tablet TAKE ONE TABLET BY MOUTH AT BEDTIME 30 tablet 4 5 Active Hospital, Clinic, or Other Facility Administered Medication Ordered Dose Route Frequency Start Date End Date Status lidocaine (XYLOCAINE) 1 % injection 10 mL 10 mL INFILTRATION Once 08/17/2023 Act citlali lidocaine 1% - EPINEPHrine 1:834923 (XYLOCAINE W/EPI) 1 %-1:587695 injection 10 mL 10 mL INFILTRATION Once 08/17/2023 Active lidocaine (XYLOCAINE) 1 % injection 10 mL 10 mL INFILTRATION Once 08/17/2023 Act citlali lidocaine 1% - EPINEPHrine 1:273071 (XYLOCAINE W/EPI) 1 %-1:311158 injection 10 mL 10 mL INFILTRATION Once 08/17/2023 Active Active Problems Problem Noted Date Diagnosed Date Psoriatic arthritis 03/07/2024 Assessment & Plan (11/07/2024 8:45 AM EST): 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 Worst T score in the left femoral neck -3.1. The lumbar spine improved by 13% osteoporosis femoral neck, L spine and wrist DEXA 07/13/23: consistent with osteopenia Femoral neck -2.2 - Continue Prolia every 6 months; Tolerated well. She had Prolia at [facility] 08/13/2024 - She would like to see about getting Prolia closer to home. I have sent a request to see if we can make this change. - Her Vitamin level has decreased to 90.8. - Stop taking calcium 500 mg daily, getting plenty in daily diet Assessment & Plan (07/11/2024 2:57 PM EDT): DEXA 03/13/2021 improved everywhere but the femoral neck which worsened by 2.8%. Worst T score in the left femoral neck -3.1. The lumbar spine improved by 13% osteoporosis femoral neck, L spine and wrist DEXA 07/13/23: consistent with osteopenia Femoral neck -2.2 - Continue Prolia every 6 months; Tolerated well. She had Prolia at [facility] 01/18/2024. - Her Vitamin level has decreased to 90.8. - Stop taking calcium 500 mg daily, getting plenty in daily diet Assessment & Plan (03/08/2024 1:15 PM EDT): DEXA 03/13/2021 improved everywhere but the femoral neck which worsened by 2.8%. Worst T score in the left femoral neck -3.1. The lumbar spine improved by 13% osteoporosis femoral neck, L spine and wrist DEXA 07/13/23: consistent with osteopenia Femoral neck -2.2 - Continue Prolia every 6 months; Tolerated well. She had Prolia at [facility] 01/18/2024. - Continue Vitamin D 1000 IU. Her Vitamin level has decreased to 90.8. - Stop taking calcium 500 mg daily, getting plenty in daily diet High risk medication use 03/07/2024 Assessment & Plan (11/07/2024 8:46 AM EST): azathioprine and methotrexate - Labs every 12 weeks CBC, CMP, ESR, CRP, UA. - Vitamin D, complements and dsDNA every 6 months. - Up to date on Shingles and pneumonia vaccine. - No live vaccines - We discussed the possible side effects of [...] virus vaccines are contraindicated while taking azathioprine Assessment & Plan (07/11/2024 2:57 PM EDT): azathioprine and methotrexate - Labs every 12 weeks CBC, CMP, ESR, CRP, UA. - Vitamin D, complements and dsDNA every 6 months. - Up to date on Shingles and pneumonia vaccine. - No live vaccines - We discussed the possible side effects of [...] virus vaccines are contraindicated while taking azathioprine Assessment & Plan (03/07/2024 8:51 AM EDT): azathioprine and methotrexate - Labs every 12 weeks CBC, CMP, ESR, CRP, UA. - Vitamin D, complements and dsDNA every 6 months. - Up to date on Shingles and pneumonia vaccine. - No live vaccines - We discussed the possible side effects of [...] virus vaccines are contraindicated while taking azathioprine Chronic right shoulder pain 03/07/2024 Assessment & Plan (07/10/2024 10:37 AM EDT): Right shoulder steroid injection 04/03/2024 Consent form reviewed and signed See procedure note Patient can have this done every 3 months as needed. Assessment & Plan (04/03/2024 2:54 PM EDT): Right shoulder steroid injection 04/03/2024 Consent form reviewed and signed See procedure note Patient can have this done every 3 months as needed. Assessment & Plan (03/08/2024 1:25 PM EDT): Symptoms are helpful. Last injection June 2023. We will schedule her for a right shoulder steroid injection. She would like to wait 2 weeks until her cataract heals. Psoriasis 03/06/2024 Overview (03/06/2024): 09/20/2018 Assessment & Plan (11/07/2024 8:45 AM EST): None presently. Originally presented around fingernails She did have some around her nails when cleaning house, under control now. Continue follow-up with dermatology Assessment & Plan (07/11/2024 2:57 PM EDT): None presently. Originally presented around fingernails She did have some around her nails when cleaning house, under control now. Continue follow-up with dermatology Assessment & Plan (03/07/2024 8:48 AM EDT): None presently. Originally presented around fingernails She did have some around her nails when cleaning house, under control now. 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 Previously diagnosed with fibromyalgia by Dr. Lu. Dx SLE in 1996 +YULI 1:640 homogenous and nucleolar, +dsDNA, + anti-camacho, + DEBT COLLECTION SPECIALIST, + anticentromere, normal complements, normal SPEP. Negative RF, Scl70, SSA and SSB. 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 - Continue azathioprine 200 mg daily - Continue methotrexate 17.5 mg/7 tablets weekly - Continue daily folic acid - She did try historically to reduce medication and flared on her skin, Resumed regular medication dosage and rash resolved. - Continue tizanidine 2 mg nightly for sleep - Continue Aleve as needed (very rare), better relief with CBD oil. - Continue using tumeric and CBD oil as needed joint pains Labs reviewed. She did have a mild elevation of one LFT and a mild decrease in wbc 10/2024. Repeat labs in 6-8 weeks. She currently has UTI. She will hold methotrexate and imuran while zeferino antibiotics. 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 Previously diagnosed with fibromyalgia by Dr. Lu. Dx SLE in 1996 +YULI 1:640 homogenous and nucleolar, +dsDNA, + anti-camacho, + DEBT COLLECTION SPECIALIST, + anticentromere, normal complements, normal SPEP. Negative RF, Scl70, SSA and SSB. 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 - Continue azathioprine 200 mg daily - Continue methotrexate 17.5 mg/7 tablets weekly - Continue daily folic acid - She did try historically to reduce medication and flared on her skin, Resumed regular medication dosage and rash resolved. - Continue tizanidine 2 mg nightly for sleep - Continue Aleve as needed (very rare), better relief with CBD oil. - Continue using tumeric and CBD oil as needed joint pains Labs reviewed. 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 - Continue azathioprine 200 mg daily - Continue methotrexate 17.5 mg/7 tablets weekly - Continue daily folic acid - She did try historically to reduce medication and flared on her skin, Resumed regular medication dosage and rash resolved. - Continue tizanidine 2 mg nightly for sleep - Continue Aleve as needed (very rare), better relief with CBD oil. - Continue using tumeric and CBD oil as needed joint pains -Reviewed labs in [facility] from 11/02/2023. Labs were stable. Also reviewed labs that her primary care ordered January 2024. These are available in [facility]. Sjogren's syndrome 03/06/2024 Overview (03/06/2024): 09/20/2018 Assessment & Plan (11/13/2024 1:39 PM EST): - For sicca symptoms, I recommended conservative measures including frequent lubrication, avoiding stimulants, and regular dental and ophthalmic exams Assessment & Plan (07/11/2024 2:23 PM EDT): - For sicca symptoms, I recommended conservative measures including frequent lubrication, avoiding stimulants, and regular dental and ophthalmic exams SPEP Pending. Assessment & Plan (03/08/2024 2:07 PM EDT): - For sicca symptoms, I recommended conservative measures including frequent lubrication, avoiding stimulants, and regular dental and ophthalmic exams Check SPEP with next lab draw Encounters Date Type Department Care Team Description 05/06/2025 Refill [facility] RHEUMATOLOGY [address] [place] [phone] Daylin Gallegos APRN Other forms of systemic lupus erythematosus, unspecified organ involvement status; High risk medication use 04/24/2025 Refill [facility] RHEUMATOLOGY [address] [address] Daylin Gallegos APRN 04/10/2025 Telephone [facility] RHEUMAT[facility]Y [address] [address] Daylin Gallegos APRN LAB RESULTS FROM FEBRUARY 12 04/10/2025 Refill [facility] RHEUM[facility] [address] [place] [phone] Daylin Gallegos APRN Other forms of systemic lupus erythematosus, unspecified organ involvement status; Sjogren's syndrome, with unspecified organ involvement; High risk medication use 02/19/2025 Results Follow-Up [facility]HEUMAT[facility] [address] [place] [phone] Daylin Gallegos APRN 02/18/2025 Results Follow-Up [facility] RHEUM[facility] [address] [place] [phone] Daylin Gallegos APRN from Last 3 Months Immunizations Immunization Administration Dates Next Due COVID-19 (UNSPECIFIED) 11/14/2020,10/17/2020 Influenza, Unspecified 06/27/2019,07/13/2017 Pneumococcal, Unspecified 07/13/2017 Family History Medical History Relation Name Comments Ulcerative colitis Father Osteoporosis Mother Breast cancer Neg Hx Ovarian cancer Neg Hx Relation Name Status Comments Father Mother Social History Tobacco Use Types Packs/Day Years [...] on file Sexual Orientation Not on file Last Filed Vital Signs Vital Sign Reading Time Taken Comments Blood Pressure 118/66 11/13/2024 1:04 PM EST Pulse 62 11/13/2024 1:04 PM EST Temperature 36.2 C (97.2 F) 11/13/2024 1:04 PM EST Respiratory Rate - - Oxygen Saturation - - Inhaled Oxygen Concentration - - Weight 75.9 kg (167 lb 6.4 oz) 11/13/2024 1:04 P M EST Height 157.5 cm (5' 2 ) 11/13/2024 1:04 PM EST Body Mass Index 30.62 11/13/2024 1:04 PM EST Plan of Treatment Upcoming Encounters Date Type Department Care Team (Late st Contact Info) Description 05/20/2025 1:30 PM EDT Office Visit [facility]HEUMATOLOGY [address] [place] [address] Daylin Gallegos APRN [address] [address] [place] [address] Health Maintenance Due Date Last Done Comments Pneumococcal Vaccine 50+ (1 of 2 - PCV) 12/06/1966 07/13/2017 TDAP/TD VACCINES (1 - Tdap) 12/06/1966 ZOSTER VACCINE (1 of 2) 12/06/1966 RSV Vaccine - Adults (1 - 1- dose 75+ series) 12/06/2022 ANNUAL WELLNESS VISIT 03/06/2024 HEPATITIS C SCREENING 03/06/2024 COVID-19 Vaccine (6 - 2023-2 5 season) 2024 07/15/2021, 11/14/2020, 11/03/2020, Additional history exists INFLUENZA VACCINE 06/26/2025 07/20/2023, , 07/13/2017, Additional history exists DXA SCAN 03/06/2026 03/06/2024 MAMMOGRAM Discontinued 04/04/2024, 01/2023, 05/17/2023, Additional history exists Procedures Procedure Name Priority Date/Time Associated Diagnosis Comments SCANNED - LABS 05/10/2025 SCANNED - LABS 02/12/2025 SCANNED - LABS 02/12/2025 MAMMO DIAGNOSTIC DIGITAL TOMOSYNTHESIS BILATERAL W CAD Routine 04/04/2024 1:26 PM EDT Abnormal mammogram SCANNED - DEXA Routine 03/06/2024 8:25 AM EDT from Last 3 Months or Most Recently Relevant to Health Maintenance Results * LABS SCANNED (05/10/2025) Only the most recent of3 resultswithin the time period is included. us Claribel Mancera MACERATOR OPERATOR LAB BLOOD ORDERABLES [place] Result * Mammo Diagnostic Digital Tomosynthesis Bilateral With CAD (04/04/2024 1:26 PM EDT) Anatomical Region Laterality Modality Breast Bilateral Mammography 04/04/2024 1:32 PM EDT Impressions 04/04/2024 1:42 PM EDT 1. No findings suspicious for malignancy in the right breast. 2. Stable probably benign calcifications in the left upper inner quadrant. RECOMMENDATION: Continued left mammographic follow-up with magnification imaging in 12 months. The patient will be due for bilateral mammographic imaging at that time. BI-RADS CATEGORY 3, PROBABLY BENIGN. CAD was utilized. The standard false-negative rate of mammography is between 10% and 25%. Complex patterns or increased breast density will markedly elevate the false-negative rate of mammography. A results letter, in lay terminology, will be given to the patient at the conclusion of the exam. _ PHYSICIAN ORDER DIAGNOSTIC 12 MONTH FOLLOW UP MAMMOGRAM AND/OR BREAST ULTRASOUND. DIAGNOSIS: ABNORMAL MAMMOGRAM This report was finalized on 04/04/2024 1:[address] Dorota Sterling MD. Narrative 04/04/2024 1:42 PM EDT BILATERAL DIAGNOSTIC MAMMOGRAM HISTORY: 78-year-old patient presents for follow-up left mammographic imaging of calcifications in the left medial breast that underwent benign core biopsy on 08/17/2023. She is also being followed for a possible area of architectural distortion in the left upper outer quadrant that was not visible at the time of attempted core biopsy dated on 08/17/2023. The patient is currently due for bilateral mammographic imaging. She has no personal or family history of breast cancer and no current breast complaints. TECHNIQUE: Bilateral low dose, full field digital CC and MLO views were obtained with tomosynthesis. COMPARISON: 08/17/2023, 06/30/2023, 05/17/2023, 10/16/2019, 05/18/2018, 01/27/2017, 11/14/2015, and 07/17/2014 FINDINGS: There are scattered areas of fibroglandular density. RIGHT BREAST The fibroglandular pattern is stable. There are no suspicious masses, worrisome calcifications, areas of architectural distortion, or other secondary signs of malignancy. LEFT BREAST The fibroglandular pattern is stable. No significant change is noted in amorphous calcifications being followed in the upper inner quadrant status post benign core biopsy. Continued follow-up with magnification imaging is recommended. The possible area of architectural distortion noted in the upper outer quadrant on prior mammographic imaging is no longer visualized. The fibroglandular tissue in this location is stable compared to multiple prior studies. Left mammographic imaging is otherwise unremarkable. Claribel Mancera APRN IMG MAMMOGRAPHY ORDERABLE S Final Result * DEXA Scan (03/06/2024 8:25 AM EDT) Anatomical Region Laterality Modality Other Historical Provider MD CAMPOS CHART REVIEW TABS [place] Result from Last 3 Months or Most Recently Relevant to Health Maintenance Insurance MEDICARE A & B [facility] Care Teams Movement Therapist Relationship Specialty Start Date End Date Claribel Mancera, [place] PCP - General Emergency Medicine 08/22/23
--- OUTSIDE RECORDS SUMMARY | 2025-05-14 12:12 | XMS_ITS | Encounter Summary ---
Author Organization [facility] Address [address] [place] [address] Care Team Providers Care Barrel Dedenting Machine Operator Name Role Phone Claribel Mancera APRN Primary Care Provider [phone] Reason for Visit * Reason Onset Date Comments LAB RESULTS FROM FEBRUARY 12 04/10/2025 Encounter Details Date Type Department Care Team (Late st Contact Info) Description 04/10/2025 Telephone [facility] RHEUMATOLOGY [address] [place] [id number] Daylin Gallegos APRN 330 [facility] [address] [place] [address] LAB RESULTS FROM FEBRUARY 12 Social History Tobacco Use Types Packs/Day Years [...] encounter Miscellaneous Notes * Telephone Encounter - Radha Waddell MA - 04/12/2025 10:30 AM EDT I called PCP's office and got the fax number. It's [phone]. I faxed 02/12/25 lab results per ptrequest. -TAHMINA Marks * Telephone Encounter - Ute Bullock RegSched Rep - 04/10/2025 10:38 AM EDT Hub staff attempted to follow warm transfer process and was unsuccessful Caller: Melody Velez Relationship to patient: Self Best call back number: [phone] Patient is needing: PT IS REQUESTING THAT HER LAB WORK FROM January BE SENT TO HER PCP'S OFFICE. COULDN'T FIND A FAX NUMBER BUT THEIR OFFICE NUMBER IS [phone]. documented in this encounter Plan of Treatment Upcoming Encounters Date Type Department Care Team (Late st Contact Info) Description 05/20/2025 1:30 PM EDT Office Visit [facility] RHEUMATOLOGY [address] [address] Daylin Gallegos APRN [address] [address] documented as of this encounter Visit Diagnoses Not on filedocumented in this encounter Care Teams Barrel Dedenting Machine Operator Relationship Specialty Start Date End Date Claribel Mancera APRN PCP - General Emergency Medicine 08/22/23 documented as of this encounter
--- OUTSIDE RECORDS SUMMARY | 2025-05-14 12:12 | XMS_ITS | Encounter Summary ---
[facility] Address [address] [place] [address] Care Team Providers Care Blue Prints Trimmer Name Role Phone Claribel Mancera APRN Primary Care Provider [phone] Reason for Visit * Reason Comments Med Refill Encounter Details Date Type Department Care Team (Late st Contact Info) Description 04/10/2025 Refill [facility]UMATOLOGY 330 [facility] [address] [place] [address] Daylin Gallegos APRN 330 [facility] [address] [place], [place] [id number] Other forms of systemic lupus erythematosus, unspecified organ involvement status; Sjogren's syndrome, with unspecified organ involvement; High risk medication use Social History Tobacco Use Types Packs/Day Years [...] Telephone Encounter - Renetta Edmondson MA - 04/10/2025 8:46 AM EDT Rx Refill Note Requested Prescriptions Pending Prescriptions Disp Refills azaTHIOprine (IMURAN) 50 MG tablet [Pharmacy Med Name: azathioprine 50 mg tablet] 120 tablet 3 Sig: TAKE TWO TABLETS BY MOUTH 2 TIMES A DAY Last office visit with prescribing clinician: 11/13/2024 Last telemedicine visit with prescribing clinician: Visit date not found Next office visit with prescribing clinician: 05/20/2025 Renetta Edmondson MA 04/10/25, 08:47 EDT Please advise only see CMP and vitamin d on file. No recent cbc, sed rate, crp documented in this encounter Plan of Treatment Upcoming Encounters Date Type Department Care Team (Late st Contact Info) Description 05/20/2025 1:30 PM EDT Office Visit [facility] RHEUMATOLOGY [address] [phone] Daylin Gallegos APRN [address] [address] documented as of this encounter Visit Diagnoses Diagnosis Other forms of systemic lupus erythematosus, unspecified organ involvement status Sjogren's syndrome, with unspecified organ involvement High risk medication use documented in this encounter Care Teams Blue Prints Trimmer Relationship Specialty Start Date End Date Claribel Mancera APRN PCP - General Emergency Medicine 08/22/23 documented as of this encounter
--- OUTSIDE RECORDS SUMMARY | 2025-05-14 12:12 | XMS_ITS | Encounter Summary ---
[facility] Address [address] [place] [address] Care Team Providers Care Cold Type Composing Machine Operator Name Role Phone Claribel Mancera APRN Primary Care Provider [phone] Encounter Details Date Type Department Care Team (Late Contact Info) Description 02/19/2025 Results Follow-Up [facility] [address] [address] Daylin Gallegos APRN [address] [address] Social History Tobacco Use Types Packs/Day Years [...] Description 05/20/2025 1:30 PM EDT Office Visit [facility] [address] [address] Daylin Gallegos APRN [address] [address] documented as of this encounter Visit Diagnoses Not on filedocumented in this encounter Care Teams Cold Type Composing Machine Operator Relationship Specialty Start Date End Date Claribel Mancera APRN PCP - General Emergency Medicine 08/22/23 documented as of this encounter
--- OUTSIDE RECORDS SUMMARY | 2025-05-14 12:12 | XMS_ITS | Encounter Summary ---
[facility] Address [address] [place] [address] Care Team Providers Care Strategic Procurement Manager Name Role Phone Claribel Mancera APRN Primary Care Provider [phone] Reason for Visit * Reason Onset Date Comments Med Refill 05/06/2025 Encounter Details Date Type Department Care Team (Late st Contact Info) Description 05/06/2025 Refill [facility] [address] [facility] [address] [place] [address] Daylin Gallegos APRN [address] [facility] [address] [place] [address] Other forms of systemic lupus erythematosus, unspecified organ involvement status; High risk medication use Social History Tobacco [...] Telephone Encounter - Renetta Edmondson MA - 05/08/2025 12:52 PM EDT Rx Refill Note Requested Prescriptions Pending Prescriptions Disp Refills TiZANidine (Zanaflex) 2 MG capsule 30 capsule 4 Sig: Take 1 capsule by mouth Every Night. Last office visit with prescribing clinician: 11/13/2024 Last telemedicine visit with prescribing clinician: Visit date not found Next office visit with prescribing clinician: 05/20/2025 Renetta Edmondson MA 05/08/25, 12:52 EDT Medication filled 04.24.25 with 4 refills. documented in this encounter Plan of Treatment Upcoming Encounters Date Type Department Care Team (Late st Contact Info) Description 05/20/2025 1:30 PM EDT Office Visit [facility] [address] [phone] Daylin Gallegos APRN [address] [address] documented as of this encounter Visit Diagnoses Diagnosis Other forms of systemic lupus erythematosus, unspecified organ involvement status High risk medication use documented in this encounter Care Teams Strategic Procurement Manager Relationship Specialty Start Date End Date Claribel Mancera APRN PCP - General Emergency Medicine 08/22/23 documented as of this encounter
[2025-05-14] MEDS: IMIPENEM/CILASTATIN SODIUM 500 MG in 0.9 % SODIUM CHLORIDE 100 ML 200 MG IV (13:14)
[2025-05-14 13:19] VITALS: BP 140/75; PULSE 61; RESP 18; O2SAT 95
[2025-05-14] MEDS: 0.9 % SODIUM CHLORIDE 50 ML 200 ML IV (13:19)
[2025-05-14 13:59] VITALS: BP 136/74; PULSE 56; RESP 18; O2SAT 95
== END 2025-05-14 13:59 | disposition home or self-care (01) ==
LOC: INF 12:07
PROVIDERS: PCP Nurse Practitioner; Visit Provider Nurse Practitioner
DX: Z45.1 Encounter for adjustment and management of infusion pump (principal); N39.0 Urinary tract infection, site not specified
CPT/HCPCS: 36410; 96365

== ENCOUNTER 2025-05-30 13:01 | Outpatient (CLI) | payer MEDICARE, OTHER, SELFPAY ==
--- OUTSIDE RECORDS SUMMARY | 2025-05-20 13:30 | XMS_ITS | Encounter Summary ---
[facility] Address [address] [place] [address] Care Team Providers Care Car Unloader Name Role Phone Claribel Mancera APRN Primary Care Provider [phone] Reason for Referral * Diagnostic Imaging (Routine) - Authorized Specialty Diagnoses / Procedures Referred By Contac t Referred To Contact Radiology Diagnoses Age-related osteoporosis without current pathological fracture Procedures DEXA Bone Density Axial Daylin Gallegos APRN [address] [address] Phone: tel: fax: [facility] DEXA [address] [address] Phone: tel: fax: Referral ID Status Reason Start Date Expiration Date V isits Requested Visits Authorized [id number] Authorized 05/20/2025 08/19/2026 1 1 Reason for Visit * Reason Comments Other forms of systemic lupus erythemato tab, unspecified or Encounter Details Date Type Department Care Team (Late st Contact Info) Description 05/20/2025 1:30 PM EDT Office Visit [facility] [address] [phone] Daylin Gallegos APRN [address] [place] [phone] Other forms of systemic lupus erythematosus, unspecified organ involvement status (Primary Dx); Sjogren's syndrome, with unspecified organ involvement; Psoriatic arthritis; High risk medication use; Age-related osteoporosis without current pathological fracture; Psoriasis; Chronic right shoulder pain Social History Tobacco Use Types Packs/Day Years [...] on file documented as of this encounter Last Filed Vital Signs Vital Sign Reading Time Taken Comments Blood Pressure 122/70 05/20/2025 1:16 PM EDT Pulse 70 05/20/2025 1:16 PM EDT Temperature 36.3 C (97.4 F) 05/20/2025 1:16 PM EDT Respiratory Rate - - Oxygen Saturation - - Inhaled Oxygen Concentration - - Weight 81.1 kg (178 lb 11.2 oz) 05/20/2025 1:16 PM EDT Height 157.5 cm (5' 2 ) 05/20/2025 1:16 PM EDT Body Mass Index 32.68 05/20/2025 1:16 PM EDT documented in this encounter Progress Notes * Daylin Gallegos, [place] - 05/20/2025 1:30 PM EDTAssociated Problem(s): Systemic lupus erythematosus Patient has a lupus /psoriatic arthritis overlap per Dr. Olivarez. Previously diagnosed with fibromyalgia by Dr. Lu. 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 Negative RF, [...] well. - Continue azathioprine 200 mg daily when antibiotics complete. - Continue methotrexate 17.5 mg/7 tablets weekly when antibiotics complete - Continue daily folic acid - She did try historically to reduce medication and flared on her skin, Resumed regular medication dosage and rash resolved. - Continue tizanidine 2 mg nightly for sleep - Continue Aleve as needed (very rare), better relief with CBD oil. - Continue using tumeric and CBD oil as needed joint pains Labs reviewed and stable 04/2025. Repeat labs in 6-8 weeks. New lab order given. She is holding methotrexate and imuran while on antibiotics. She currently has a UTI and has a midline. She is receiving Imipenem tid. Her is administering this. Recheck in 4 months Orders: Comprehensive Metabolic Panel; Standing C-reactive Protein; Standing Sedimentation Rate; Standing CBC & Differential; Standing * Daylin Gallegos APRN - 05/20/2025 1:30 PM EDTAssociated Problem(s): Sjogren's syndrome - For sicca symptoms, I recommended conservative measures including frequent lubrication, avoiding stimulants, and regular dental and ophthalmic exams Orders: Comprehensive Metabolic Panel; Standing C-reactive Protein; Standing Sedimentation Rate; Standing CBC & Differential; Standing * Daylin Gallegos APRN - 05/20/2025 1:30 PM EDTAssociated Problem(s): Psoriatic arthritis 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 Joint pain doing well. Orders: Comprehensive Metabolic Panel; Standing C-reactive Protein; Standing Sedimentation Rate; Standing CBC & Differential; Standing * Daylin Gallegos APRN - 05/20/2025 1:30 PM EDTAssociated Problem(s): High risk medication use azathioprine and methotrexate - Labs every 12 weeks CBC, CMP, ESR, CRP, UA. - Vitamin D, complements and dsDNA every 6 months. - Up to date on Shingles and pneumonia vaccine. - No live vaccines - On hold for IV antibiotics. - We discussed the possible side effects [...] virus vaccines are contraindicated while taking azathioprine Orders: Comprehensive Metabolic Panel; Standing C-reactive Protein; Standing Sedimentation Rate; Standing CBC & Differential; Standing * Daylin Gallegos APRN - 05/20/2025 1:30 PM EDTAssociated Problem(s): Age-related osteoporosis without current pathological fracture DEXA 03/13/2021 improved everywhere but the femoral neck which worsened by 2.8%. Worst T score in the left femoral neck -3.1. The lumbar spine improved by 13% osteoporosis femoral neck, L spine and wrist DEXA 07/13/23: consistent with osteopenia Femoral neck -2.2 - Continue Prolia every 6 months; Tolerated well. She had Prolia at [facility] 08/13/2024 - She would like to see about getting Prolia closer to home. I have sent a request to see if we canmake this change. - last given at [facility] 12/2024 Orders: DEXA Bone Density Axial; Future Vitamin D,25-Hydroxy; Future Comprehensive Metabolic Panel; Future * Daylin Gallegos APRN - 05/20/2025 1:30 PM EDTAssociated Problem(s): Psoriasis None presently. Originally presented around fingernails She did have some around her nails when cleaning house, under control now. Continue follow-up with dermatology * Daylin Gallegos APRN - 05/20/2025 1:30 PM EDTAssociated Problem(s): Chronic right shoulder pain Right shoulder steroid injection 04/03/2024 Schedule injection Discussed plan of care in detail with the patient today. Patient verbalized understanding and agrees. I confirm accuracy of unchanged data/findings which have been carried forward from previous visit. I have updated appropriately those that have changed. * Daylin Gallegos APRN - 05/20/2025 1:30 PM EDT Office Visit Date: 05/20/2025 Patient Name: Melody Velez Date of : 1945 Referring Physician: No ref. provider found Chief Complaint: Chief Complaint Patient presents with Other forms of systemic lupus erythematosus, unspecified or History of Present Illness: Melody Velez is a 79 y.o. female who is here today for follow-up ofSjogren's and systemic lupus as well as psoriatic arthritis. Today she reports feeling the same. She rates her pain a global score 4/10. She has 2 hours of morning stiffness. We are prescribing her azathioprine, methotrexate, tizanidine, ibuprofen and folic acid. Subjective Review of Systems Constitutional: Positive for fatigue. HENT: Positive for postnasal drip. Genitourinary: Positive for frequency, urgency and urinary incontinence. Musculoskeletal: Positive for myalgias. Psychiatric/Behavioral: The patient is nervous/anxious. All other systems reviewed and are negative. Past Medical History: Past Medical History: Diagnosis Date Back pain Diabetes mellitus Encounter for long-term (current) use of high-risk medication Fibromyalgia High risk medication use 03/07/2024 Hypothyroidism Psoriatic arthropathy Rash Sjogren's syndrome Systemic lupus erythematosus arthritis Past Surgical History: Past Surgical History: Procedure Laterality Date BREAST BIOPSY Bilateral HYSTERECTOMY AGE 41 OOPHORECTOMY Bilateral AGE 41 Family History: Family History Problem Relation Age of Onset Osteoporosis Mother Ulcerative colitis Father Breast cancer Neg Hx Ovarian cancer Neg Hx Social History: Social History Socioeconomic History Marital status: Tobacco Use Smoking status: Never Passive exposure: Past Smokeless tobacco: Never Vaping Use Vaping status: Never Used Substance and Sexual Activity Alcohol use: Never Drug use: Never Sexual activity: Not Currently Medications: Current Outpatient Medications: ALPRAZolam (XANAX) 1 MG tablet, Take 1 tablet by mouth Daily As Needed for Anxiety., Disp: , Rfl: amLODIPine (NORVASC) 2.5 MG tablet, Take 1 tablet by mouth Daily., Disp: , Rfl: azaTHIOprine (IMURAN) 50 MG tablet, TAKE TWO TABLETS BY MOUTH 2 TIMES A DAY, Disp: 120 tablet, Rfl:3 carvedilol (COREG) 12.5 MG tablet, Take 1 tablet by mouth 2 (Two) Times a Day With Meals., Disp: , Rfl: denosumab (Prolia) 60 MG/ML solution prefilled syringe syringe, Inject 1 mL under the skin into theappropriate area as directed Every 6 (Six) Months. In the upper arm upper thigh or abdomen, Disp: ,Rfl: escitalopram (LEXAPRO) 20 MG tablet, Take 1 tablet by mouth Daily., Disp: , Rfl: fluocinonide (LIDEX) 0.05 % cream, Apply 1 Application topically to the appropriate area as directed As Needed., Disp: , Rfl: folic acid (FOLVITE) 1 MG tablet, Take 3 tablets by mouth Daily. Except the day of methotrexate, Disp: 90 tablet, Rfl: 4 ibuprofen (ADVIL,MOTRIN) 200 MG tablet, Take 1 tablet by mouth Every 8 (Eight) Hours As Needed (as needed with food)., Disp: 270 tablet, Rfl: 1 imipenem-cilastatin (PRIMAXIN) 500 MG injection, , Disp: , Rfl: levothyroxine (SYNTHROID, LEVOTHROID) 137 MCG tablet, Take 1 tablet by mouth Daily., Disp: , Rfl: losartan-hydrochlorothiazide (HYZAAR) 50-12.5 MG per tablet, Take 1 tablet by mouth Daily., Disp: ,Rfl: magnesium cl-calcium carbonate (Slow-Mag) 71.5-119 MG tablet delayed-release tablet, Take 2 tabletsby mouth Daily., Disp: , Rfl: metFORMIN ER (GLUCOPHAGE-XR) 500 MG 24 hr tablet, Take 1 tablet by mouth Daily. With evening meal, Disp: , Rfl: methotrexate 2.5 MG tablet, Take 7 tablets by mouth 1 (One) Time Per Week., Disp: 35 tablet, Rfl: 3 Mouthwashes (Biotene dry mouth) liquid liquid, Take 15 mL by mouth Daily., Disp: , Rfl: TiZANidine (Zanaflex) 2 MG capsule, Take 1 capsule by mouth Every Night., Disp: 30 capsule, Rfl: 4 tiZANidine (ZANAFLEX) 2 MG tablet, TAKE ONE TABLET BY MOUTH AT BEDTIME, Disp: 30 tablet, Rfl: 4 Current Facility-Administered Medications: lidocaine (XYLOCAINE) 1 % injection 10 mL, 10 mL, Infiltration, Once, Nancy Duncan MD lidocaine (XYLOCAINE) 1 % injection 10 mL, 10 mL, Infiltration, Once, Nancy Duncan MD lidocaine 1% - EPINEPHrine 1:920722 (XYLOCAINE W/EPI) 1 %-1:468575 injection 10 mL, 10 mL, Infiltration, Once, Nancy Duncan MD lidocaine 1% - EPINEPHrine 1:693976 (XYLOCAINE W/EPI) 1 %-1:318047 injection 10 mL, 10 mL, Infiltration, Once, Nancy Duncan MD Allergies: Allergies Allergen Reactions Misc. Sulfonamide Containing Compounds Hives Sulfa Sulfa Antibiotics Hives Rash, itching I have reviewed and updated the patient's chief complaint, history of present illness, review of systems, past medical history, surgical history, family history, social history, medications and allergy list as appropriate. Objective Vital Signs: Vitals: 05/20/25 1316 BP: 122/70 BP Location: Left arm Patient Position: Sitting Cuff Size: Adult Pulse: 70 Temp: 97.4 ??F (36.3 ??C) Weight: 81.1 kg (178 lb 11.2 oz) Height: 157.5 cm (62 ) PainSc: 4 PainLoc: Generalized Body mass index is 32.68 kg/m??. Physical Exam: Physical Exam Vitals reviewed. Constitutional: Appearance: Normal appearance. HENT: Head: Normocephalic and atraumatic. Mouth/Throat: Mouth: Mucous membranes are moist. Eyes: Conjunctiva/sclera: Conjunctivae normal. Cardiovascular: Rate and Rhythm: Normal rate and regular rhythm. Pulses: Normal pulses. Heart sounds: Normal heart sounds. Pulmonary: Effort: Pulmonary effort is normal. Breath sounds: Normal breath sounds. Musculoskeletal: General: Normal range of motion. Cervical back: Normal range of motion and neck supple. Comments: OA changes bilateral changes No synovitis Crepitus bilateral knees Right shoulder with greatly limited ROM. Synovial thickening several PIP Skin: General: Skin is warm and dry. Comments: Scattered erythema papules on bilateral arms and legs (dermal mucinosis diagnosis) No psoriasis Midline left AC, dressing with scant old bloody drainage. Neurological: General: No focal deficit present. Mental Status: She is alert and oriented to person, place, and time. Mental status is at baseline. Psychiatric: Mood and Affect: Mood normal. Behavior: Behavior normal. Thought Content: Thought content normal. Judgment: Judgment normal. Results Review: Imaging Results (Last 24 Hours) No results found for the last 24 hours. 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 Previously diagnosed with fibromyalgia by Dr. Lu. 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 Negative RF, [...] well. - Continue azathioprine 200 mg daily when antibiotics complete. - Continue methotrexate 17.5 mg/7 tablets weekly when antibiotics complete - Continue daily folic acid - She did try historically to reduce medication and flared on her skin, Resumed regular medication dosage and rash resolved. - Continue tizanidine 2 mg nightly for sleep - Continue Aleve as needed (very rare), better relief with CBD oil. - Continue using tumeric and CBD oil as needed joint pains Labs reviewed and stable 04/2025. Repeat labs in 6-8 weeks. New lab order given. She is holding methotrexate and imuran while on antibiotics. She currently has a UTI and has a midline. She is receiving Imipenem tid. Her is administering this. Recheck in 4 months Orders: Comprehensive Metabolic Panel; Standing C-reactive Protein; Standing Sedimentation Rate; Standing CBC & Differential; Standing Sjogren's syndrome, with unspecified organ involvement - For sicca symptoms, I recommended conservative measures including frequent lubrication, avoiding stimulants, and regular dental and ophthalmic exams Orders: Comprehensive Metabolic Panel; Standing C-reactive Protein; Standing Sedimentation Rate; Standing CBC & Differential; Standing Psoriatic arthritis 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 Joint pain doing well. Orders: Comprehensive Metabolic Panel; Standing C-reactive Protein; Standing Sedimentation Rate; Standing CBC & Differential; Standing High risk medication use azathioprine and methotrexate - Labs every 12 weeks CBC, CMP, ESR, CRP, UA. - Vitamin D, complements and dsDNA every 6 months. - Up to date on Shingles and pneumonia vaccine. - No live vaccines - On hold for IV antibiotics. - We discussed the possible side effects [...] virus vaccines are contraindicated while taking azathioprine Orders: Comprehensive Metabolic Panel; Standing C-reactive Protein; Standing Sedimentation Rate; Standing CBC & Differential; Standing Age-related osteoporosis without current pathological fracture DEXA 03/13/2021 improved everywhere but the femoral neck which worsened by 2.8%. Worst T score in the left femoral neck -3.1. The lumbar spine improved by 13% osteoporosis femoral neck, L spine and wrist DEXA 07/13/23: consistent with osteopenia Femoral neck -2.2 - Continue Prolia every 6 months; Tolerated well. She had Prolia at [facility] 08/13/2024 - She would like to see about getting Prolia closer to home. I have sent a request to see if we canmake this change. - last given at [facility] 12/2024 Orders: DEXA Bone Density Axial; Future Vitamin D,25-Hydroxy; Future Comprehensive Metabolic Panel; Future Psoriasis None presently. Originally presented around fingernails She did have some around her nails when cleaning house, under control now. Continue follow-up with dermatology Chronic right shoulder pain Right shoulder steroid injection 04/03/2024 Schedule injection Discussed plan of care in detail with the patient today. Patient verbalized understanding and agrees. I confirm accuracy of unchanged data/findings which have been carried forward from previous visit. I have updated appropriately those that have changed. Follow Up: Return in about 4 months (around 09/19/2025) for Dr. Pabon. Daylin Gallegos APRN [facility] [place] documented in this encounter Plan of Treatment Upcoming Encounters Date Type Department Care Team (Late st Contact Info) Description 10/03/2025 10:30 AM EST Appointment [facility] DEXA [address] [phone] 10/03/2025 11:00 AM EST Office Visit [facility] [address] [place] [phone] Daylin Gallegos APRN [address] [phone] 01/13/2026 1:30 PM EDT Office Visit [facility] [address] [place] [phone] Gabriel Pabon MD [address] [phone] Scheduled Orders Name Type Priority Associated Diagnoses Orde r Schedule Comprehensive Metabolic Panel Lab Routine Other forms of systemic lupus erythematosus, unspecified organ involvement status Sjogren's syndrome, with unspecified organ involvement Psoriatic arthritis High risk medication use Every 6 weeks for 4 Occurrences starting 05/20/2025 until 05/20/2026 C-reactive Protein Lab Routine Other forms of systemic lupus erythematosus, unspecified organ involvement status Sjogren's syndrome, with unspecified organ involvement Psoriatic arthritis High risk medication use Every 6 weeks for 4 Occurrences starting 05/20/2025 until 05/20/2026 Sedimentation Rate Lab Routine Other forms of systemic lupus erythematosus, unspecified organ involvement status Sjogren's syndrome, with unspecified organ involvement Psoriatic arthritis High risk medication use Every 6 weeks for 4 Occurrences starting 05/20/2025 until 05/20/2026 CBC & Differential Lab Panel Routine Other forms of systemic lupus erythematosus, unspecified organ involvement status Sjogren's syndrome, with unspecified organ involvement Psoriatic arthritis High risk medication use Every 6 weeks for 4 Occurrences starting 05/20/2025 until 05/20/2026 DEXA Bone Density Axial Imaging Routine Age-related osteoporosis without current pathological fracture Expected: 05/25/2025, Expires: 05/20/2026 Vitamin D,25-Hydroxy Lab Routine Age-related osteoporosis without current pathological fracture Expected: 07/04/2025 (Approximate), Expires: 08/20/2026 Comprehensive Metabolic Panel Lab Routine Age-related osteoporosis without current pathological fracture Expected: 07/04/2025 (Approximate), Expires: 08/20/2026 documented as of this encounter Visit Diagnoses Diagnosis Other forms of systemic lupus erythematosus, unspecified organ involvement status- Primary Sjogren's syndrome, with unspecified organ involvement Psoriatic arthritis Psoriatic arthropathy High risk medication use Age-related osteoporosis without current pathological fracture Psoriasis Other psoriasis Chronic right shoulder pain Pain in joint, shoulder region documented in this encounter Care Teams Car Unloader Relationship Specialty Start Date End Date Claribel Mancera APRN PCP - General Emergency Medicine 08/22/23 documented as of this encounter
--- OUTSIDE RECORDS SUMMARY | 2025-05-30 13:08 | XMS_ITS | Clinical Summary ---
Author Organization [facility] Address [address] [place] [address] Care Team Providers Care Sheet Metal Pattern Cutter Name Role Phone Claribel Mancera APRN Primary Care Provider +1 [phone] Allergies Active Allergy Reactions Criticality Noted Date Comments Misc. Sulfonamide Containing Compounds Hives Medium 03/06/2024 Sulfa Sulfa Antibiotics Hives Medium 03/08/2024 Rash, itching Medications metFORMIN ER (GLUCOPHAGE-XR ) 500 MG 24 hr tablet Take 1 tablet by mouth Daily. With evening meal Active ALPRAZolam (XANAX) 1 MG tablet Take 1 tablet by mouth Daily As Needed for Anxiety. Active Mouthwashes (Biotene dry mouth) liquid liquid Take 15 mL by mouth Daily. Active carvedilol (COREG) 12.5 MG tablet Take 1 tablet by mouth 2 (Two) Times a Day With Meals. Active magnesium cl-calcium carbonate (Slow-Mag) 71.5-119 MG tablet delayed-releas e tablet Take 2 tablets by mouth Daily. [...] tablet Take 1 tablet by mouth Daily. 03/07/20 24 Active escitalopram (LEXAPRO) 20 MG tablet Take 1 tablet by mouth Daily. Active fluocinonide (LIDEX) 0.05 % cream Apply 1 Application topically to the appropriate area as directed As Needed. Active losartan-hydro chlorothiazide (HYZAAR) 50-12.5 MG per tablet Take 1 tablet by mouth Daily. 06/05/20 24 Active TiZANidine (Zanaflex) 2 MG capsuleIndicat ions:Other forms of systemic lupus erythematosus, unspecified organ involvement status,High risk medication use Take 1 capsule by mouth Every Night. 30 capsule 4 11/13/19 25 Active methotrexate 2.5 MG tabletIndicati ons:Other forms of systemic lupus erythematosus, unspecified organ involvement status,Sjogren 's syndrome, with unspecified organ involvement,Ps oriatic arthritis,High risk medication use Take 7 tablets by mouth 1 (One) Time Per Week. 35 tablet 3 11/13/19 25 Active ibuprofen (ADVIL,MOTRIN) 200 MG tabletIndicati ons:High risk medication use Take 1 tablet by mouth Every 8 (Eight) Hours As Needed (as needed with food). 270 tablet 1 11/13/19 25 Active azaTHIOprine (IMURAN) 50 MG tabletIndicati ons:Other forms of systemic lupus erythematosus, unspecified organ involvement status,Sjogren 's syndrome, with unspecified organ involvement,Hi gh risk medication use TAKE TWO TABLETS BY MOUTH 2 TIMES A DAY 120 tablet 3 04/11/20 25 Active tiZANidine (ZANAFLEX) 2 MG tablet TAKE ONE TABLET BY MOUTH AT BEDTIME 30 tablet 4 04/24/20 25 Active imipenem-cilas tatin (PRIMAXIN) 500 MG injection 05/15/20 25 Active folic acid (FOLVITE) 1 MG tabletIndicati ons:Other forms of systemic lupus erythematosus, unspecified organ involvement status,High risk medication use TAKE 3 TABLETS BY MOUTH ONCE A DAY. DO NOT TAKE THE DAY OF METHOTREXATE 90 tablet 4 05/28/20 25 Active hydroCHLOROthi azide 25 MG tablet Take 0.5 tablets by mouth Daily. 025 Discontinued folic acid (FOLVITE) 1 MG tabletIndicati ons:Other forms of systemic lupus erythematosus, unspecified organ involvement status,High risk medication use Take 3 tablets by mouth Daily. Except the day of methotrexate 90 tablet 4 11/13/19 25 025 Discontinued predniSONE (DELTASONE) 20 MG tablet TAKE 2 TABLETS BY MOUTH ONCE A DAY with food OR MILK 03/08/20 25 025 Discontinued Hospital, Clinic, or Other Facility Administered Medication Ordered Dose Route Frequency Start Date End Date Status lidocaine (XYLOCAINE) 1 % injection 10 mL 10 mL INFILTRATION Once 08/17/2023 Act citlali lidocaine 1% - EPINEPHrine 1:674668 (XYLOCAINE W/EPI) 1 %-1:262966 injection 10 mL 10 mL INFILTRATION Once 08/17/2023 Active lidocaine (XYLOCAINE) 1 % injection 10 mL 10 mL INFILTRATION Once 08/17/2023 Act citlali lidocaine 1% - EPINEPHrine 1:398776 (XYLOCAINE W/EPI) 1 %-1:321947 injection 10 mL 10 mL INFILTRATION Once 08/17/2023 Active Active Problems Problem Noted Date Diagnosed Date Psoriatic arthritis 03/07/2024 Assessment & Plan (05/20/2025 1:58 PM EDT): 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 Joint pain doing well. Orders: Comprehensive Metabolic Panel; Standing C-reactive Protein; Standing Sedimentation Rate; Standing CBC & Differential; Standing Assessment & Plan (11/07/2024 8:45 AM EST): [...] current pathological fracture 03/07/2024 Assessment & Plan (05/20/2025 1:58 PM EDT): DEXA 03/13/2021 improved everywhere but the femoral neck which worsened by 2.8%. Worst T score in the left femoral neck -3.1. The lumbar spine improved by 13% osteoporosis femoral neck, L spine and wrist DEXA 07/13/23: consistent with osteopenia Femoral neck -2.2 - Continue Prolia every 6 months; Tolerated well. She had Prolia at [facility] 08/13/2024 - She would like to see about getting Prolia closer to home. I have sent a request to see if we can make this change. - last given at [facility] 12/2024 Orders: DEXA Bone Density Axial; Future Vitamin D,25-Hydroxy; Future Comprehensive Metabolic Panel; Future Assessment & Plan (11/13/2024 1:43 PM EST): DEXA 03/13/2021 improved everywhere but the femoral neck which worsened by 2.8%. Worst T score in the left femoral neck -3.1. The lumbar spine improved by 13% osteoporosis femoral neck, L spine and wrist DEXA 07/13/23: consistent with osteopenia Femoral neck -2.2 - Continue Prolia every 6 months; Tolerated well. She had Prolia at [facility] 08/13/2024 - She would like to [...] months; Tolerated well. She had Prolia at [facility] 01/18/2024. - Her Vitamin level has [...] months; Tolerated well. She had Prolia at [facility] 01/18/2024. - Continue Vitamin D 1000 IU. Her Vitamin level has decreased to 90.8. - Stop taking calcium 500 mg daily, getting plenty in daily diet High risk medication use 03/07/2024 Assessment & Plan (05/20/2025 1:58 PM EDT): azathioprine and methotrexate - Labs [...] Sedimentation Rate; Standing CBC & Differential; Standing Assessment & Plan (11/07/2024 8:46 AM EST): [...] right shoulder pain 03/07/2024 Assessment & Plan (05/20/2025 1:58 PM EDT): Right shoulder steroid injection 04/03/2024 Schedule injection Discussed plan of care in detail with the patient today. Patient verbalized understanding and agrees. I confirm accuracy of unchanged data/findings which have been carried forward from previous visit. I have updated appropriately those that have changed. Assessment & Plan (07/10/2024 10:37 AM EDT): [...] 03/06/2024 Overview (03/06/2024): 09/20/2018 Assessment & Plan (05/20/2025 1:58 PM EDT): None presently. Originally presented around fingernails She did have some around her nails when cleaning house, under control now. 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 Previously diagnosed with fibromyalgia by Dr. Lu. Dx SLE in 1996 +YULI 1:640 homogenous and nucleolar, +dsDNA, + anti-camacho, + HEATER OPERATOR HELPER, + anticentromere, normal complements, normal SPEP. 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 Previously diagnosed with fibromyalgia by Dr. Lu. Dx SLE in 1996 +YULI 1:640 homogenous and nucleolar, +dsDNA, + anti-camacho, + HEATER OPERATOR HELPER, + anticentromere, normal complements, normal SPEP. Negative [...] homogenous and nucleolar, +dsDNA, + anti-camacho, + HEATER OPERATOR HELPER, + anticentromere, normal complements, normal SPEP. Negative [...] as needed joint pains -Reviewed labs in [facility] from 11/02/2023. Labs were stable. Also reviewed labs that her primary care ordered January 2024. These are available in [facility]. Sjogren's syndrome 03/06/2024 Overview (03/06/2024): 09/20/2018 Assessment & Plan (05/20/2025 1:58 PM EDT): - For sicca symptoms, I recommended conservative measures including frequent lubrication, avoiding stimulants, and regular dental and ophthalmic exams Orders: Comprehensive Metabolic Panel; Standing C-reactive Protein; Standing Sedimentation Rate; Standing CBC & Differential; Standing Assessment & Plan (11/13/2024 1:39 PM EST): [...] Encounters Date Type Department Care Team Description 05/26/2025 Refill [facility] RHEUMATOLOGY [address] [place] [phone] Daylin Gallegos APRN Other forms of systemic lupus erythematosus, unspecified organ involvement status; High risk medication use 05/20/2025 1:30 PM EDT Office Visit [facility] RHEUMATOLOGY [address] [place] [phone] Daylin Gallegos APRN Other forms of systemic lupus erythematosus, unspecified organ involvement status (Primary Dx); Sjogren's syndrome, with unspecified organ involvement; Psoriatic arthritis; High risk medication use; Age-related osteoporosis without current pathological fracture; Psoriasis; Chronic right shoulder pain 05/20/2025 Travel 05/06/2025 Refill [facility] RHEUMATOLOGY [address] [place] [phone] Daylin Gallegos APRN Other forms of systemic lupus erythematosus, unspecified organ involvement status; High risk medication use 04/24/2025 Refill [facility] RHEUMATOLOGY [address] [place] [phone] Daylin Gallegos APRN 04/10/2025 Telephone [facility] RHEUMATOLOGY [address] [place] [phone] Daylin Gallegos APRN LAB RESULTS FROM FEBRUARY 12 04/10/2025 Refill [facility] RHEUMATOLOGY [address] [place] [phone] Daylin Gallegos APRN Other forms of systemic lupus erythematosus, unspecified organ involvement status; Sjogren's syndrome, with unspecified organ involvement; High risk medication use from Last 3 Months Immunizations Immunization Administration [...] Mass Index 32.68 05/20/2025 1:16 PM EDT Plan of Treatment Upcoming Encounters Date Type Department Care Team (Late st Contact Info) Description 10/03/2025 10:30 AM EST Appointment [facility] DEXA [address] [facility] [address] [phone] 10/03/2025 11:00 AM EST Office Visit [facility] RHEUMATOLOGY [address] [phone] Daylin Gallegos APRN [address] [phone] 01/13/2026 1:30 PM EDT Office Visit [facility] RHEUMATOLOGY [address] [phone] Gabriel Pabon MD [address] [place] [address] Health Maintenance Due Date Last Done Comments Pneumococcal Vaccine 50+ (1 of 2 - PCV) 12/06/1966 07/13/2017 TDAP/TD VACCINES (1 - Tdap) 12/06/1966 ZOSTER VACCINE (1 of 2) 12/06/1966 RSV Vaccine - Adults (1 - 1- dose 75+ series) 12/06/2022 ANNUAL WELLNESS VISIT 03/06/2024 HEPATITIS C SCREENING 03/06/2024 COVID-19 Vaccine ( - 2024-2 6 season) 2025 07/15/2021, 11/14/2020, 11/03/2020, Additional history exists INFLUENZA VACCINE 06/26/2025 07/20/2023, , 07/13/2017, Additional history exists DXA SCAN 03/06/2026 03/06/2024 MAMMOGRAM Discontinued 04/04/2024, 01/2023, 05/17/2023, Additional history exists Procedures Procedure Name Priority Date/Time Associated Diagnosis Comments SCANNED - LABS 05/10/2025 MAMMO DIAGNOSTIC DIGITAL TOMOSYNTHESIS BILATERAL W CAD Routine 04/04/2024 1:26 PM EDT Abnormal mammogram SCANNED - DEXA Routine 03/06/2024 8:25 AM EDT from Last 3 Months or Most Recently Relevant to Health Maintenance Results * LABS SCANNED (05/10/2025) Claribel Mancera APRN LAB BLOOD ORDERABLES [place] Result * [...] Anatomical Region Laterality Modality Other Historical Provider CHART REVIEW TABS [place] Result from Last 3 Months or Most Recently Relevant to Health Maintenance Insurance MEDICARE A & B Member Subscriber Plan / Payer ( fective 2012-Present) Name:Melody Velez Member ID:[id number] Relation to Subscriber:Self Name:Melody Velez Subscriber ID:[id number] Payer ID:[id number] Group ID:Not on file Type:Not on file Address: [facility] [id number] Care Teams Sheet Metal Pattern Cutter Relationship Specialty Start Date End Date Claribel Mancera APRN PCP - General Emergency Medicine 08/22/23
--- OUTSIDE RECORDS SUMMARY | 2025-05-30 13:09 | XMS_ITS | Encounter Summary ---
Author Organization [facility] Address [address] [place] [address] Care Team Providers Care Repair Armature Winder Name Role Phone Claribel Mancera APRN Primary Care Provider +1 -[phone] Encounter Details Date Type Department Care Team (Latest Contact Info) Description 05/20/2025 Travel Social History Tobacco Use Types Packs/Day Years [...] Info) Description 10/03/2025 10:30 AM EST Appointment [facility] RHEUMATOLOGY DEXA [address] [phone] 10/03/2025 11:00 AM EST Office Visit [facility] RHEUMATOLOGY [address] [phone] Daylin Gallegos APRN [address] [phone] 01/13/2026 1:30 PM EDT Office Visit [facility] RHEUMATOLOGY [address] [phone] Gabriel Pabon MD [address] [place] [address] documented as of this encounter Visit Diagnoses Not on filedocumented in this encounter Care Teams Repair Armature Winder Relationship Specialty Start Date End Date Claribel Mancera APRN PCP - General Emergency Medicine 08/22/23 documented as of this encounter
--- OUTSIDE RECORDS SUMMARY | 2025-05-30 13:09 | XMS_ITS | Encounter Summary ---
[facility] Organization [facility] Address [address] [place] [address] Care Team Providers Care Stationary Fireman Name Role Phone Claribel Mancera APRN Primary Care Provider +1 -[phone] Encounter Details Date Type Department Care Team (Late Contact Info) Description 02/19/2025 Results Follow-Up [facility] RHEUMATOLOGY [address] [phone] Daylin Gallegos APRN [address] [place] [phone] Social History Tobacco Use Types Packs/Day Years [...] Info) Description 10/03/2025 10:30 AM EST Appointment [facility] RHEUMATOLOGY DEXA [address] [phone] 10/03/2025 11:00 AM EST Office Visit [facility]HEUMATOLOGY [address] [phone] Daylin Gallegos APRN [address] [address] 01/13/2026 1:30 PM EDT Office Visit [facility] RHEUMATOLOGY [address] [phone] Gabriel Pabon MD [address] [phone] documented as of this encounter Visit Diagnoses Not on filedocumented in this encounter Care Teams Stationary Fireman Relationship Specialty Start Date End Date Claribel Mancera APRN PCP - General Emergency Medicine 08/22/23 documented as of this encounter
--- OUTSIDE RECORDS SUMMARY | 2025-05-30 13:09 | XMS_ITS | Encounter Summary ---
Author Organization [facility] Address [address] [place] [address] Care Team Providers Care Campaign Specialist Name Role Phone Claribel Mancera APRN Primary Care Provider +1 -[phone] Reason for Visit * Reason Onset Date Comments LAB RESULTS FROM FEBRUARY 12 04/10/2025 Encounter Details Date Type Department Care Team (Late st Contact Info) Description 04/10/2025 Telephone [facility] RHEUMATOLOGY 330 [facility] [address] [place] [phone] Daylin Gallegos APRN [address] [facility] [address] [place] [address] LAB RESULTS FROM FEBRUARY 12 [...] office and got the fax number. It's [phone]. I faxed 02/12/25 lab results per ptrequest. -TAHMINA Marks * Telephone Encounter - Kobe Ute JeremiahRohan Rep - 04/10/2025 10:38 AM EDT Hub staff attempted to follow warm transfer process and was unsuccessful Caller: Melody Velez Relationship to patient: Self Best call back number: [phone] Patient is needing: PT IS REQUESTING THAT HER LAB WORK FROM January BE SENT TO HER PCP'S OFFICE. COULDN'T FIND A FAX NUMBER BUT THEIR OFFICE NUMBER IS [phone]. documented in this encounter Plan of Treatment Upcoming Encounters Date Type Department Care Team (Late st Contact Info) Description 10/03/2025 10:30 AM EST Appointment [facility] RHEUMATOLOGY DEXA [address] [phone] 10/03/2025 11:00 AM EST Office Visit [facility] RHEUMATOLOGY [address] [phone] Daylin Gallegos APRN [address] [phone] 01/13/2026 1:30 PM EDT Office Visit [facility] RHEUMATOLOGY [address] [phone] Gabriel Pabon MD [address] [address] documented as of this encounter Visit Diagnoses Not on filedocumented in this encounter Care Teams Campaign Specialist Relationship Specialty Start Date End Date Claribel Mancera SHEET HEATER PCP - General Emergency Medicine 08/22/23 documented as of this encounter
--- OUTSIDE RECORDS SUMMARY | 2025-05-30 13:09 | XMS_ITS | Encounter Summary ---
[facility] Organization [facility] Address [address] [place] [address] Care Team Providers Care Food Service Aide Name Role Phone Claribel Mancera APRN Primary Care Provider +1 -[phone] Encounter Details Date Type Department Care Team (Late Contact Info) Description 02/18/2025 Results [facility]-Up [facility] RHEUMATOLOGY [address] [phone] Daylin Gallegos APRN [address] [place] [phone] Social History Tobacco Use Types Packs/Day Years [...] Info) Description 10/03/2025 10:[address] [facility] RHEUMATOLOGY DEXA [address] [phone] 10/03/2025 11:00 AM EST Office Visit [facility] RHEUMATOLOGY [address] [phone] Daylin Gallegos APRN [address] [address] 01/13/2026 1:30 PM EDT Office Visit [facility] RHEUMATOLOGY [address] [phone] Gabriel Pabon MD [address] [phone] documented as of this encounter Visit Diagnoses Not on filedocumented in this encounter Care Teams Food Service Aide Relationship Specialty Start Date End Date Claribel Mancera APRN PCP - General Emergency Medicine 08/22/23 documented as of this encounter
--- OUTSIDE RECORDS SUMMARY | 2025-05-30 13:09 | XMS_ITS | Encounter Summary ---
Author Organization [facility] Address [address] [place] [address] Care Team Providers Care Wire Fence Builder Name Role Phone Claribel Mancera APRN Primary Care Provider +1 [phone] Reason for Visit * Reason Comments Med Refill Encounter Details Date Type Department Care Team (Late st Contact Info) Description 05/26/2025 Refill [facility] RHEUMATOLOGY 330 [facility] [address] [place] [address] Daylin Gallegos APRN 330 [facility] [address] [place], [place] [phone] Other forms of systemic lupus erythematosus, unspecified [...] Telephone Encounter - Renetta Edmondson MA - 05/28/2025 12:44 PM EDT Rx Refill Note Requested Prescriptions Pending Prescriptions Disp Refills folic acid (FOLVITE) 1 MG tablet [Pharmacy Med Name: folic acid 1 mg tablet] 90 tablet 4 Sig: TAKE 3 TABLETS BY MOUTH ONCE A DAY. DO NOT TAKE THE DAY OF METHOTREXATE Last office visit with prescribing clinician: 05/20/2025 Last telemedicine visit with prescribing clinician: Visit date not found Next office visit with prescribing clinician: 10/03/2025 { Renetta Edmondson MA 05/28/25, 12:44 EDT Medication sent to pharmacy documented in this encounter Plan of Treatment Upcoming Encounters Date Type Department Care Team (Late st Contact Info) Description 10/03/2025 10:30 AM EST Appointment [facility] RHEUMATOLOGY DEXA [address] [phone] 10/03/2025 11:00 AM EST Office Visit [facility] RHEUMATOLOGY [address] [phone] Daylin Gallegos APRN [address] [address] 01/13/2026 1:30 PM EDT Office Visit [facility] RHEUMATOLOGY [address] [phone] Gabriel Pabon MD [address] [phone] documented as of this encounter Visit Diagnoses Diagnosis Other forms of systemic lupus erythematosus, unspecified organ involvement status High risk medication use documented in this encounter Care Teams Wire Fence Builder Relationship Specialty Start Date End Date Claribel Mancera SCRAP BURNER PCP - General Emergency Medicine 08/22/23 documented as of this encounter
--- OUTSIDE RECORDS SUMMARY | 2025-05-30 13:09 | XMS_ITS | Encounter Summary ---
[facility] Address [address] [place] [address] Care Team Providers Care Overhead Worker Name Role Phone Claribel Mancera APRN Primary Care Provider +1 -[phone] Reason for Visit * Reason Comments Med Refill Encounter Details Date Type Department Care Team (Late st Contact Info) Description 04/10/2025 Refill [facility] RHEUMATOLOGY 330 [facility] [address] [place] [address] Daylin Gallegos APRN 330 [facility] 100 [place], [place] [phone] Other forms of systemic lupus erythematosus, unspecified [...] Description 10/03/2025 10:30 AM EST Appointment [facility] RHEUMATOLOGY DEXA [address] [phone] 10/03/2025 11:00 AM EST Office Visit [facility] RHEUMATOLOGY [address] [place] [phone] Daylin Gallegos APRN [address] [phone] 01/13/2026 1:30 PM EDT Office Visit [facility] RHEUMATOLOGY [address] [place] [phone] Gabriel Pabon MD [address] [phone] documented as of this encounter Visit Diagnoses Diagnosis Other forms of systemic lupus erythematosus, unspecified organ involvement status Sjogren's syndrome, with unspecified organ involvement High risk medication use documented in this encounter Care Teams Overhead Worker Relationship Specialty Start Date End Date Claribel Mancera APRN PCP - General Emergency Medicine 08/22/23 documented as of this encounter
--- OUTSIDE RECORDS SUMMARY | 2025-05-30 13:09 | XMS_ITS | Encounter Summary ---
Author Organization [facility] Address [address] [place] [address] Care Team Providers Care Cocoa Bean Roaster Helper Name Role Phone Claribel Mancera APRN Primary Care Provider +1 -[phone] Reason for Visit * Reason Onset Date Comments Med Refill 05/06/2025 Encounter Details Date Type Department Care Team (Late st Contact Info) Description 05/06/2025 Refill [facility] RHEUMATOLOGY 330 [facility] [address] [place] [address] Daylin Gallegos APRN [address] [facility] [address] [place] [address] Other forms of systemic lupus [...] Info) Description 10/03/2025 10:30 AM EST Appointment [facility] RHEUMATOLOGY DEXA [address] [phone] 10/03/2025 11:00 AM EST Office Visit [facility] RHEUMATOLOG[facility] [address] [phone] Daylin Gallegos APRN [address] [phone] 01/13/2026 1:30 PM EDT Office Visit [facility] RHEUMATOLOGY [address] [phone] Gabriel Pabon MD [address] [phone] documented as of this encounter Visit Diagnoses Diagnosis Other forms of systemic lupus erythematosus, unspecified organ involvement status High risk medication use documented in this encounter Care Teams Cocoa Bean Roaster Helper Relationship Specialty Start Date End Date Claribel Mancera, ENVIRONMENTAL REMEDIATION CONSULTANT PCP - General Emergency Medicine 08/22/23 documented as of this encounter
--- OUTSIDE RECORDS SUMMARY | 2025-05-30 13:09 | XMS_ITS | Encounter Summary ---
[facility] Organization [facility] Address [address] [place] [address] Care Team Providers Care Concrete Block Layer Name Role Phone Claribel Mancera APRN Primary Care Provider [phone] Reason for Visit * Reason Comments Med Refill Encounter Details Date Type Department Care Team (Late st Contact Info) Description 04/24/2025 Refill [facility] [address] [place] [address] Daylin Gallegos APRN [address] [facility] [address] [place], [place] [id number] Social History Tobacco Use Types Packs/Day Years [...] Info) Description 10/03/2025 10:30 AM EST Appointment [facility] [address] [phone] 10/03/2025 11:00 AM EST Office Visit [facility] [address] [address] Daylin Gallegos APRN [address] [address] 01/13/2026 1:30 PM EDT Office Visit [facility] [address] [phone] Gabriel Pabon MD [address] [phone] documented as of this encounter Visit Diagnoses Not on filedocumented in this encounter Care Teams Concrete Block Layer Relationship Specialty Start Date End Date Claribel Mancera, BSA OFFICER PCP - General Emergency Medicine 08/22/23 documented as of this encounter
[2025-05-30] MEDS: PIPERACILLIN/TAZO 3.375 GM in 0.9 % SODIUM CHLORIDE 50 ML IV (13:15)
[2025-05-30] MEDS: 0.9 % SODIUM CHLORIDE 50 ML IV (13:15)
[2025-05-30 13:57] VITALS: BP 143/74; PULSE 74; RESP 18; O2SAT 97
[2025-05-30 14:00] VITALS: BP 143/74; PULSE 74; RESP 17; O2SAT 97
== END 2025-05-30 14:00 | disposition home or self-care (01) ==
LOC: INF 13:05
PROVIDERS: PCP Nurse Practitioner; Visit Provider Nurse Practitioner
DX: N39.0 Urinary tract infection, site not specified (principal)
CPT/HCPCS: 96365; J2543

== ENCOUNTER 2025-08-15 12:55 | Outpatient (CLI) | payer MEDICARE, OTHER, SELFPAY ==
--- OUTSIDE RECORDS SUMMARY | 2025-07-04 10:00 | XMS_ITS | Encounter Summary ---
[facility] Address [address] [place] [address] Care Team Providers Care Working Foreman Name Role Phone Claribel Mancera APRN Primary Care Provider [phone] Reason for Visit * Reason Comments Recurrent UTI * Consultation (Routine) - Closed Specialty Diagnoses / Procedures Referred By Oswald t Referred To Contact Urology Diagnoses Dysuria Claribel Mancera APRN [address] [place] [address] Phone: tel: fax: Javier Pacheco MD [address] [address] Phone: tel: fax: Referral ID Status Reason Start Date Expiration Date Visits Re quested Visits Authorized [id number] Closed 06/13/2025 09/12/2026 1 1 Encounter Details Date Type Department Care Team (Late st Contact Info) Description 07/04/2025 11:00 AM EDT Office Visit [facility] [address] [place] [address] Jenelle Murry APRN [facility] [place] [address] Recurrent UTI (urinary tract infection) (Primary Dx); Vaginal dryness; Overactive bladder; Microscopic hematuria Social History Tobacco Use Types Packs/Day Years Used Date Smoking Tobacco: Never Passive Smoke Exposure: Past Smokeless Tobacco: Never Tobacco Cessation:Counseling Given: Not Answered Alcohol Use Standard Drinks/Week Comments Never 0 [...] Sign Reading Time Taken Comments Blood Pressure 153/78 07/04/2025 12:00 PM EDT Pulse 62 07/04/2025 11:23 AM EDT Temperature - - Respiratory Rate - - Oxygen Saturation 97% 07/04/2025 11:23 AM EDT Inhaled Oxygen Concentration - - Weight 81.6 kg (180 lb) 07/04/2025 11:23 AM EDT Height 157.5 cm (5' 2 ) 07/04/2025 11:23 AM EDT Body Mass Index 32.92 07/04/2025 11:23 AM EDT documented in this encounter Progress Notes * Jenelle Murry APRN - 07/04/2025 11:00 AM EDT Images from the original note were not included. UTI Office Visit Patient Name: Melody Velez : 1945 Chief Complaint: UTI Chief Complaint Patient presents with Recurrent UTI Referring Provider: Claribel Mancera APRN History of Present Illness: Melody Velez is a 79 y.o. female with history of fibromyalgia, hypothyroidism, diabetes, psoriatic arthropathy, Sjogren syndrome, and systemic lupus who presents today for history of lower urinary tract symptoms and recurrent UTI. Patients granddaughter is with her forvisit. She reports history of recurrent positive urine cultures without UTI symptoms. 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 She reports most recently having a PICC line placed with outpatient IV antibiotics at local hospital. She was referred to infectious disease and saw infectious disease in [place]. It was not recommended to continue checking urine samples as patient is asymptomatic. No urine cultures available. Urinalysis with 3+ leuks and 2+ blood. Bladder scan PVR 0 cc. She does report urinary urgency and urinary urge incontinence. She is wearing depends and pads during the day. She mainly drinks water during the day and 1 cup of coffee in the morning. Subjective Review of System: Review of Systems Genitourinary: Positive for frequency and urgency. Negative for dysuria. All other systems reviewed and are negative. I have reviewed the ROS documented by my clinical staff, I have updated appropriately and I agree. Jenelle Murry APRN Past Medical History: Past Medical History: Diagnosis Date Back pain Diabetes mellitus Encounter for long-term (current) use of high-risk medication Fibromyalgia High risk medication use 03/07/2024 Hypothyroidism Psoriatic arthropathy Rash Sjogren's syndrome Systemic lupus erythematosus arthritis Urinary incontinence Urinary tract infection Past Surgical History: Past Surgical History: Procedure Laterality Date BREAST BIOPSY Bilateral HYSTERECTOMY AGE 41 OOPHORECTOMY Bilateral AGE 41 Medications: Current Outpatient Medications: ALPRAZolam (XANAX) 1 [...] Rfl: folic acid (FOLVITE) 1 MG tablet, TAKE 3 TABLETS BY MOUTH ONCE A DAY. DO NOT TAKE THE DAY OF METHOTREXATE, Disp: 90 tablet, Rfl: 4 ibuprofen (ADVIL,MOTRIN) 200 MG tablet, Take 1 tablet by mouth Every 8 (Eight) Hours As Needed (as needed with food)., Disp: 270 tablet, Rfl: 1 levothyroxine (SYNTHROID, LEVOTHROID) 137 MCG tablet, Take [...] Disp: , Rfl: methotrexate 2.5 MG tablet, TAKE 7 TABLETS BY MOUTH ONCE WEEKLY, Disp: 35 tablet, Rfl: 3 Mouthwashes (Biotene dry mouth) liquid liquid, Take 15 mL by mouth Daily., Disp: , Rfl: tiZANidine (ZANAFLEX) 2 MG tablet, TAKE ONE TABLET BY MOUTH AT BEDTIME, Disp: 30 tablet, Rfl: 4 estradiol (ESTRACE) 0.1 MG/GM vaginal cream, Insert/apply 2 g to urethra and inside vagina 3 times weekly, Disp: 42.5 g, Rfl: 3 Vibegron 75 MG tablet, Take 1 tablet by mouth Daily., Disp: 28 tablet, Rfl: 0 Current Facility-Administered Medications: lidocaine (XYLOCAINE) 1 % injection 10 mL, 10 mL, Infiltration, Once, Nancy Duncan MD lidocaine (XYLOCAINE) 1 % injection 10 mL, 10 mL, Infiltration, Once, Nancy Duncan MD lidocaine 1% - EPINEPHrine 1:445058 (XYLOCAINE W/EPI) 1 %-1:003587 injection 10 mL, 10 mL, Infiltration, Once, Nancy Duncan MD lidocaine 1% - EPINEPHrine 1:797787 (XYLOCAINE W/EPI) 1 %-1:355064 injection 10 mL, 10 mL, Infiltration, Once, Nancy Duncan MD Allergies: Allergies Allergen Reactions Misc. Sulfonamide Containing Compounds Hives Sulfa Sulfa Antibiotics Hives Rash, itching Social History: Social History Socioeconomic History Marital status: Tobacco Use Smoking status: Never Passive exposure: Past Smokeless tobacco: Never Vaping Use Vaping status: Never Used Substance and Sexual Activity Alcohol use: Never Drug use: Never Sexual activity: Not Currently Partners: Male Family History: Family History Problem Relation Age of Onset Osteoporosis Mother Ulcerative colitis Father Hypertension Father Breast cancer Neg Hx Ovarian cancer Neg Hx Bladder & Bowel Symptom Questionnaire How often do you usually urinate during the day ? 3 - About every 1-2 hours 2. How many timed do you urinate at night? 1 - 2 times at night 3. What is the reason that you usually urinate? 2 - Moderate urge (can delay 10- 60 min) 4. Once you get the urge to go, how long can you comfortably delay? 3 - Less than 10 min 5. How often do you get a sudden urge that makes you paige to the bathroom? 4 - At least once a day 6. How often does a sudden urge to urinate result in you leaking urine or wetting pads? 4 - At least once a day 7. In your opinion, how good is your bladder control? 3 - Poor 8. Do you have accidental bowel leakage? yes 9. Do you have difficulty fully emptying your bladder? yes 10. Do you experience accidental leakage when performing some physical activity such as coughing, sneezing, laughing or exercise? yes 11. Have you tried medications to help improve your symptoms? no 12. Would you be interested in learning about a long-lasting option that may help you with your symptoms? yes Total Score 20 0-7 (Mild) 8-16 (Moderate) 17-28 (Severe) Post void residual bladder scan: 0 mL Objective Physical Exam: Vital Signs: Vitals: 07/04/25 1123 BP: (!) 188/80 Pulse: 62 SpO2: 97% Weight: 81.6 kg (180 lb) Height: 157.5 cm (62 ) Body mass index is 32.92 kg/m??. Physical Exam Vitals and nursing note reviewed. Constitutional: Appearance: Normal appearance. HENT: Head: Normocephalic and atraumatic. Nose: Nose normal. Mouth/Throat: Mouth: Mucous membranes are moist. Eyes: Pupils: Pupils are equal, round, and reactive to light. Pulmonary: Effort: Pulmonary effort is normal. Abdominal: General: Abdomen is flat. Palpations: Abdomen is soft. Musculoskeletal: General: Normal range of motion. Cervical back: Normal range of motion. Skin: General: Skin is warm and dry. Capillary Refill: Capillary refill takes less than 2 seconds. Neurological: General: No focal deficit present. Mental Status: She is alert. Psychiatric: Mood and Affect: Mood normal. Labs: Brief Urine Lab Results (Last result in the past 365 days) Color Clarity Blood Leuk Est Nitrite Protein CREAT Urine HCG 07/04/25 1133 Yellow Cloudy 2+ Large (3+) Negative Negative No results found for: GLUCOSE , CALCIUM , NA , K , CO2 , CL , BUN , CREATININE , EGFRIFAFRI , EGFRIFNONA , BCR , ANIONGAP No results found for: WBC , HGB , HCT , MCV , PLT Images: No Images in the past 120 days found.. Measures: Tobacco: Melody Velez reports that she has never smoked. She has been exposed to tobacco smoke. She has never used smokeless tobacco. Urine Incontinence: Patient reports that she is currently experiencing any symptoms of urinary incontinence. Assessment / Plan Assessment: Melody Velez is a 79 y.o. who presented today with history of positive urine cultures and lower urinary tract symptoms. She is bothered by her lower urinary tract symptoms and she will begin samples of Gemtesa 75 mg once daily. Samples provided in office. She will notify me in 1 month if she wishes to proceed with a formal prescription. We discussed her urinalysis. Given blood we will send urine for UA micro. I do not recommend sending urine for culture as she denies any UTI symptoms at this time and I do not recommend treating asymptomatic bacteriuria. We discussed beginning vaginal Estrace cream for lower urinary tract symptoms and vaginal dryness. Patient is agreeable with plan of care. Follow-up in 3 months for symptom check. Diagnoses and all orders for this visit: 1. Recurrent UTI (urinary tract infection) (Primary) - POC Urinalysis Dipstick, Automated - estradiol (ESTRACE) 0.1 MG/GM vaginal cream; Insert/apply 2 g to urethra and inside vagina 3 times weekly Dispense: 42.5 g; Refill: 3 2. Vaginal dryness - estradiol (ESTRACE) 0.1 MG/GM vaginal cream; Insert/apply 2 g to urethra and inside vagina 3 times weekly Dispense: 42.5 g; Refill: 3 3. Overactive bladder - Vibegron 75 MG tablet; Take 1 tablet by mouth Daily. Dispense: 28 tablet; Refill: 0 - estradiol (ESTRACE) 0.1 MG/GM vaginal cream; Insert/apply 2 g to urethra and inside vagina 3 times weekly Dispense: 42.5 g; Refill: 3 4. Microscopic hematuria - Urinalysis With Microscopic - Urine, Clean Catch; Future Follow Up: Return in about 3 months (around 10/04/2025). I spent approximately 20 minutes providing clinical care for this patient; including review of patient's chart and provider documentation, face to face time spent with patient in examination room (obtaining history, performing physical exam, discussing diagnosis and management options), placing orders, and completing patient documentation. Jenelle Murry APRN [facility] [place] documented in this encounter Plan of Treatment Upcoming Encounters Date Type Department Care Team (Late st Contact Info) Description 10/03/2025 10:30 AM EST Appointment [facility] [place] [address] [phone] 10/03/2025 11:00 AM EST Office Visit [facility] [address] [place] [phone] Daylin Gallegos APRN [address] [phone] 10/08/2025 2:45 PM EST Office Visit [facility] [address] [phone] Jenelle Murry APRN [address] [phone] 01/13/2026 1:30 PM EDT Office Visit [facility] [address] [place] [phone] Gabriel Pabon MD [address] [place] [phone] documented as of this encounter Procedures Procedure Name Priority Date/Time Associated Diagnosis Comments URINALYSIS, MICROSCOPIC ONLY Routine 07/04/2025 3:21 PM EDT Microscopic hematuria URINALYSIS AND MICROSCOPIC Routine 07/04/2025 3:21 PM EDT Microscopic hematuria URINALYSIS WITHOUT MICROSCOPIC (NO CULTURE) Routine 07/04/2025 3:21 PM EDT Microscopic hematuria POCT URINALYSIS DIPSTICK, AUTOMATED Routine 07/04/2025 11:33 AM EDT Recurrent UTI (urinary tract infection) documented in this encounter Results * (ABNORMAL) Urinalysis, Microscopic Only - Urine, Clean Catch (07/04/2025 3:21 PM EDT) RBC, UA 21-50(A) None Seen, 0-2 /HPF 07/04/2025 11:51 PM EDT [facility] WBC, UA 3-5(A) None Seen, 0-2 /HPF 07/04/2025 11:51 PM EDT [facility] Bacteria, UA 4+(A) None Seen /HPF 07/04/2025 11:51 PM EDT [facility] Squamous Epithelial Cells, UA 0-2 None Seen, 0-2 /HPF 07/04/2025 11:51 PM EDT [facility] Hyaline Casts, UA 3-6 None Seen /LPF 07/04/2025 11:51 PM EDT [facility] Amorphous Crystals, UA Present None Seen /HPF 07/04/2025 11:51 PM EDT [facility] Methodology Automated Microscopy 07/04/2025 11:51 PM EDT [facility] Urine Urine specimen obtained by clean catch procedure / Unknown Collection / Unknown 07/04/2025 3:21 PM EDT 07/04/2025 3:21 PM EDT us Jenelle Murry LOCOMOTIVE ELECTRICIAN URINE ORDERABLES Final Result [facility]
[address] [place] [address], * (ABNORMAL) Urinalysis without microscopic (no culture) - Urine, Clean Catch (07/04/2025 3:21 PM EDT) Color, UA Dark Yellow(A) Yellow, Straw 07/04/2025 11:10 PM EDT [facility] Appearance, UA Cloudy(A) Clear 07/04/2025 11:10 PM EDT [facility] pH, UA 7.5 5.0 - 8.0 07/04/2025 11:10 PM EDT [facility] Specific [place], UA 1.010 1.005 - 1.030 07/04/2025 11:10 PM EDT [facility] Glucose, UA Negative Negative 07/04/2025 11:10 PM EDT [facility] Ketones, UA Negative Negative 07/04/2025 11:10 PM EDT [facility] Bilirubin, UA Negative Negative 07/04/2025 11:10 PM EDT [facility] Blood, UA Moderate (2+)(A) Negative 07/04/2025 11:10 PM EDT [facility] Protein, UA Negative Negative 07/04/2025 11:10 PM EDT [facility] Leuk Esterase, UA Moderate (2+)(A) Negative 07/04/2025 11:10 PM EDT [facility] Nitrite, UA Negative Negative 07/04/2025 11:10 PM EDT [facility] Urobilinogen, UA 0.2 E.U./dL 0.2 - 1.0 E.U./dL 07/04/2025 11:10 PM EDT [facility] Urine Urine specimen obtained by clean catch procedure / Unknown Collection / Unknown 07/04/2025 3:21 PM EDT 07/04/2025 3:21 PM EDT us Jenelle Murry APRN URINE ORDERABLES Final Result [facility]
[address] [place] [address], * (ABNORMAL) POC Urinalysis Dipstick, Automated (07/04/2025 11:33 AM EDT) Color Yellow Yellow, Straw, Dark Yellow, Nidia [facility] Clarity, UA Cloudy(A) Clear [facility] Specific [place] 1.010 1.005 - 1.030 [facility] pH, Urine 7.0 5.0 - 8.0 [facility] Leukocytes Large (3+)(A) Negative [facility] Nitrite, UA Negative Negative [facility] Protein, POC Negative Negative mg/dL [facility] Glucose, UA Negative Negative mg/dL [facility] Ketones, UA Negative Negative [facility] Urobilinogen, UA Normal Normal, 0.2 E.U./dL [facility] Bilirubin Negative Negative [facility] Blood, UA 2+(A) Negative [facility] Lot Number [id number] [facility] Expiration Date 03/12/2026 [facility] Urine 07/04/2025 11:3 3 AM EDT Jenelle Murry LOCOMOTIVE ELECTRICIAN POINT OF CARE TEST ORDERABLES F inal Result [facility]
[address] [place] [address], documented in this encounter Visit Diagnoses Diagnosis Recurrent UTI (urinary tract infection)- Primary Vaginal dryness Postmenopausal atrophic vaginitis Overactive bladder Hypertonicity of bladder Microscopic hematuria documented in this encounter Care Teams Working Foreman Relationship Specialty Start Date End Date Claribel Mancera APRN PCP - General Emergency Medicine 08/22/23 documented as of this encounter
[2025-08-15 12:55] VITALS: BP 142/76; PULSE 72; RESP 20; O2SAT 99
[2025-08-15] MEDS: DENOSUMAB 60 MG/ML SYRINGE SUBCUT (13:15)
--- OUTSIDE RECORDS SUMMARY | 2025-08-15 14:34 | XMS_ITS | Encounter Summary ---
[facility] Address [address] [place] [address] Care Team Providers Care Race And Sports Book Writer Name Role Phone Claribel Mancera APRN Primary Care Provider [phone] Encounter Details Date Type Department Care Team (Latest Contact Info) Description 07/04/2025 Travel Social History Tobacco Use Types Packs/Day [...] Info) Description 10/03/2025 10:30 AM EST Appointment [facility] [place] [address] [phone] 10/03/2025 11:00 AM EST Office Visit [facility] [address] [place] [phone] Daylin Gallegos APRN [address] [facility] [address] [place], [place] [phone] 10/08/2025 2:45 PM EST Office Visit [facility] [address] [address] Jenelle Murry APRN [address] [facility] [address] [place] [address] 01/13/2026 1:30 PM EDT Office Visit [facility] [address] [facility] [address] [place] [address] Gabriel Pabon MD [address] [address] documented as of this encounter Visit Diagnoses Not on filedocumented in this encounter Care Teams Race And Sports Book Writer Relationship Specialty Start Date End Date Claribel Mancera APRN PCP - General Emergency Medicine 08/22/23 documented as of this encounter
--- OUTSIDE RECORDS SUMMARY | 2025-08-15 14:34 | XMS_ITS | Clinical Summary ---
Author Organization [facility] Address [address] [place] [address] Care Team Providers Care Marketing Campaign Analyst Name Role Phone Claribel Mancera APRN Primary Care Provider [phone] Allergies Active Allergy Reactions Criticality Noted Date [...] tablet by mouth Daily. 06/05/20 24 Active ibuprofen (ADVIL,MOTRIN) 200 MG tabletIndicatio ns:High risk medication use Take 1 tablet by mouth Every 8 (Eight) Hours As Needed (as needed with food). 270 tablet 1 11/13/19 25 Active azaTHIOprine (IMURAN) 50 MG tabletIndicatio ns:Other forms of systemic lupus erythematosus, unspecified organ involvement status,Sjogren' s syndrome, with unspecified organ involvement,Hig h risk medication use TAKE TWO TABLETS BY MOUTH 2 TIMES A DAY 120 tablet 3 04/11/20 25 Active tiZANidine (ZANAFLEX) 2 MG tablet TAKE ONE TABLET BY MOUTH AT BEDTIME 30 tablet 4 04/24/20 25 Active folic acid (FOLVITE) 1 MG tabletIndicatio ns:Other forms of systemic lupus erythematosus, unspecified organ involvement status,High risk medication use TAKE 3 TABLETS BY MOUTH ONCE A DAY. DO NOT TAKE THE DAY OF METHOTREXATE 90 tablet 4 05/28/20 25 Active methotrexate 2.5 MG tabletIndicatio ns:Other forms of systemic lupus erythematosus, unspecified organ involvement status,Sjogren' s syndrome, with unspecified organ involvement,Pso riatic arthritis,High risk medication use TAKE 7 TABLETS BY MOUTH ONCE WEEKLY 35 tablet 3 06/08/20 25 Active Vibegron 75 MG tabletIndicatio ns:Overactive bladder Take 1 tablet by mouth Daily. 28 tablet 07/04/20 25 Active estradiol (ESTRACE) 0.1 MG/GM vaginal creamIndication s:Recurrent UTI (urinary tract infection),Vagi nal dryness,Overact citlali bladder Insert/apply 2 g to urethra and inside vagina 3 times weekly 42.5 g 3 07/04/20 25 Active Vibegron 75 MG tabletIndicatio ns:Overactive bladder Take 1 tablet by mouth Daily. 90 tablet 3 07/24/20 25 Active Vibegron 75 MG tabletIndicatio ns:Overactive bladder Take 1 tablet by mouth Daily. 30 tablet 11 08/15/20 25 Active Vibegron 75 MG tabletIndicatio ns:Overactive bladder Take 1 tablet by mouth Daily. 30 tablet 11 08/13/20 25 025 Discontin ued([facility]) Hospital, Clinic, or Other Facility Administered Medication Ordered Dose Route Frequency Start Date End Date Status lidocaine (XYLOCAINE) 1 % injection 10 mL 10 mL INFILTRATION Once 08/17/2023 Act citlali lidocaine 1% - EPINEPHrine 1:625565 (XYLOCAINE W/EPI) 1 %-1:778964 injection 10 mL 10 mL INFILTRATION Once 08/17/2023 Active lidocaine (XYLOCAINE) 1 % injection 10 mL 10 mL INFILTRATION Once 08/17/2023 Act citlali lidocaine 1% - EPINEPHrine 1:166012 (XYLOCAINE W/EPI) 1 %-1:496715 injection 10 mL 10 mL INFILTRATION Once [...] months; Tolerated well. She had Prolia at [facility] 08/13/2024 - She would like to see about getting Prolia closer to home. I have sent a request to see if we can make this change. - last given at [facility] 12/2024 Orders: DEXA Bone Density Axial; [...] months; Tolerated well. She had Prolia at [facility] 08/13/2024 - She would like to [...] months; Tolerated well. She had Prolia at [facility] 01/18/2024. - Her Vitamin level has [...] months; Tolerated well. She had Prolia at [facility] 01/18/2024. - Continue Vitamin D 1000 [...] homogenous and nucleolar, +dsDNA, + anti-camacho, + CHARGE AIDE, + anticentromere, normal complements, normal SPEP. Negative [...] homogenous and nucleolar, +dsDNA, + anti-camacho, + CHARGE AIDE, + anticentromere, normal complements, normal SPEP. Negative [...] homogenous and nucleolar, +dsDNA, + anti-camacho, + CHARGE AIDE, + anticentromere, normal complements, normal SPEP. Negative [...] as needed joint pains -Reviewed labs in [facility] from 11/02/2023. Labs were stable. Also reviewed labs that her primary care ordered January 2024. These are available in [facility]. Sjogren's syndrome 03/06/2024 Overview (03/06/2024): 09/20/2018 Assessment [...] Encounters Date Type Department Care Team Description 08/15/2025 Refill [facility] UROLOGY [address] [facility] [address] [place] [address] Jenelle Murry APRN Overactive bladder 07/24/2025 Results Follow-Up [facility] UROLOGY [address] [facility] [address] [place] [address] Jenelle Murry APRN 07/04/2025 11:00 AM EDT Office Visit [facility] UROLOGY [address] [facility] [address] [place] [address] Jenelle Murry APRN Recurrent UTI (urinary tract infection) (Primary Dx); Vaginal dryness; Overactive bladder; Microscopic hematuria 07/04/2025 Travel 06/07/2025 Refill [facility] RHEUMATOLOGY [address] [address] Mary Gallegos APRN Other forms of systemic lupus erythematosus, unspecified organ involvement status; Sjogren's syndrome, with unspecified organ involvement; Psoriatic arthritis; High risk medication use 05/26/2025 Refill [facility] RHEUMATOLOGY [address] [address] Mary Gallegos APRN Other forms of systemic lupus erythematosus, unspecified organ involvement status; High risk medication use 05/20/2025 1:30 PM EDT Office Visit [facility] RHEUMATOLOGY [address] [address] Mary Gallegos APRN Other forms of systemic lupus erythematosus, unspecified organ involvement status (Primary Dx); Sjogren's syndrome, with unspecified organ involvement; Psoriatic arthritis; High risk medication use; Age-related osteoporosis without current pathological fracture; Psoriasis; Chronic right shoulder pain 05/20/2025 Travel from Last 3 Months Immunizations Immunization Administration Dates Next Due COVID-19 (UNSPECIFIED) 11/14/2020,10/17/2020 Influenza, Unspecified 06/27/2019,07/13/2017 Pneumococcal, Unspecified 07/13/2017 Family History Medical History Relation Name Comments Hypertension Father Ulcerative colitis Father Osteoporosis Mother Breast cancer [...] Pulse 62 07/04/2025 11:23 AM EDT Temperature 36.3 C (97.4 F) 05/20/2025 1:16 PM EDT Respiratory Rate - - Oxygen Saturation 97% 07/04/2025 11:23 AM EDT Inhaled Oxygen Concentration - - Weight 81.6 kg (180 lb) 07/04/2025 11:23 AM EDT Height 157.5 cm (5' 2 ) 07/04/2025 11:23 AM EDT Body Mass Index 32.92 07/04/2025 11:23 AM EDT Plan of Treatment Upcoming Encounters Date Type Department Care Team (Late st Contact Info) Description 10/03/2025 10:30 AM EST Appointment [facility] RHEUMATOLOGY DEXA [address] [address] 10/03/2025 11:00 AM EST Office Visit [facility] RHEUMATOLOGY 330 [facility] [address] [place] [address] Daylin Gallegos APRN [address] [address] 10/08/2025 2:45 PM EST Office Visit [facility] UROLOGY [address] [facility] [address] [place], [place] [address] Jenelle Murry APRN [address] [facility] [address] [place], [place] [address] 01/13/2026 1:30 PM EDT Office Visit [facility] RHEUMATOLOGY 330 [facility] [address] [place] [address] Gabriel Pabon MD 330 [facility] [address] [place], [place] [id number] Health Maintenance Due Date Last Done Comments Pneumococcal Vaccine 50+ (1 of 2 - PCV) 12/06/1966 07/13/2017 TDAP/TD VACCINES (1 - Tdap) 12/06/1966 ZOSTER VACCINE (1 of 2) 12/06/1966 RSV Vaccine - Adults (1 - 1- dose 75+ series) 12/06/2022 ANNUAL WELLNESS VISIT 03/06/2024 HEPATITIS C SCREENING 03/06/2024 INFLUENZA VACCINE 04/26/2025 07/20/2023, , 07/13/2017, Additional history exists COVID-19 Vaccine (2024-2 6 season) 2025 07/15/2021, 11/14/2020, 11/03/2020, Additional history exists DXA SCAN 03/06/2026 03/06/2024 MAMMOGRAM Discontinued 04/04/2024, 01/2023, 05/17/2023, Additional history exists Procedures Procedure Name Priority Date/Time Associated Diagnosis Comments URINALYSIS AND MICROSCOPIC Routine 07/04/2025 3:21 PM EDT Microscopic hematuria URINALYSIS, MICROSCOPIC ONLY Routine 07/04/2025 3:21 PM EDT Microscopic hematuria URINALYSIS WITHOUT MICROSCOPIC (NO CULTURE) Routine 07/04/2025 3:21 PM EDT Microscopic hematuria POCT URINALYSIS DIPSTICK, AUTOMATED Routine 07/04/2025 11:33 AM EDT Recurrent UTI (urinary tract infection) MAMMO DIAGNOSTIC DIGITAL TOMOSYNTHESIS BILATERAL W CAD Routine 04/04/2024 1:26 PM EDT Abnormal mammogram SCANNED - DEXA Routine 03/06/2024 8:25 AM EDT from Last 3 Months or Most Recently Relevant to Health Maintenance Results * (ABNORMAL) Urinalysis, Microscopic Only - Urine, Clean Catch (07/04/2025 3:21 PM EDT) RBC, UA 21-50(A) None Seen, 0-2 /HPF 07/04/2025 11:51 PM EDT [facility] WBC, UA 3-5(A) None Seen, 0-2 /HPF 07/04/2025 11:51 PM EDT [facility] Bacteria, UA 4+(A) None Seen /HPF 07/04/2025 11:51 PM EDT [facility] Squamous Epithelial Cells, UA 0-2 None Seen, 0-2 /HPF 07/04/2025 11:51 PM EDT [facility] Hyaline Casts, UA 3-6 None Seen /LPF 07/04/2025 11:51 PM EDT [facility] Amorphous Crystals, UA Present None Seen /HPF 07/04/2025 11:51 PM EDT [facility] Methodology Automated Microscopy 07/04/2025 11:51 PM EDT [facility] Urine Urine specimen obtained by clean catch procedure / Unknown Collection / Unknown 07/04/2025 3:21 PM EDT 07/04/2025 3:21 PM EDT Jenelle Murry INNER TUBE TUBER MACHINE OPERATOR URINE ORDERABLES Final Result [facility]
[address] [place] [address], * (ABNORMAL) Urinalysis without microscopic (no culture) - Urine, Clean Catch (07/04/2025 3:21 PM EDT) Color, UA Dark Yellow(A) Yellow, Straw 07/04/2025 11:10 PM EDT [facility] Appearance, UA Cloudy(A) Clear 07/04/2025 11:10 PM EDT [facility] pH, UA 7.5 5.0 - 8.0 07/04/2025 11:10 PM EDT [facility] Specific [place], UA 1.010 1.005 - 1.030 07/04/2025 11:10 PM EDT [facility] Glucose, UA Negative Negative 07/04/2025 11:10 PM EDT [facility] Ketones, UA Negative Negative 07/04/2025 11:10 PM EDT [facility] Bilirubin, UA Negative Negative 07/04/2025 11:10 PM EDT [facility] Blood, UA Moderate (2+)(A) Negative 07/04/2025 11:10 PM EDT [facility] Protein, UA Negative Negative 07/04/2025 11:10 PM EDT [facility] Leuk Esterase, UA Moderate (2+)(A) Negative 07/04/2025 11:10 PM EDT [facility] Nitrite, UA Negative Negative 07/04/2025 11:10 PM EDT [facility] Urobilinogen, UA 0.2 E.U./dL 0.2 - 1.0 E.U./dL 07/04/2025 11:10 PM EDT [facility] Urine Urine specimen obtained by clean catch procedure / Unknown Collection / Unknown 07/04/2025 3:21 PM EDT 07/04/2025 3:21 PM EDT us Jenelle Murry INNER TUBE TUBER MACHINE OPERATOR URINE ORDERABLES Final Result [facility]
[address] [place] [address], * (ABNORMAL) POC Urinalysis Dipstick, Automated (07/04/2025 11:33 AM EDT) Color Yellow Yellow, Straw, Dark Yellow, Nidia [facility] Clarity, UA Cloudy(A) Clear [facility] Specific [place] 1.010 1.005 - 1.030 [facility] pH, Urine 7.0 5.0 - 8.0 [facility] Leukocytes Large (3+)(A) Negative [facility] Nitrite, UA Negative Negative [facility] Protein, POC Negative Negative mg/dL [facility] Glucose, UA Negative Negative mg/dL [facility] Ketones, UA Negative Negative [facility] Urobilinogen, UA Normal Normal, 0.2 E.U./dL [facility] Bilirubin Negative Negative [facility] Blood, UA 2+(A) Negative [facility] Lot Number [id number] [facility] Expiration Date 03/12/2026 [facility] Urine 07/04/2025 11:3 3 AM EDT us Jenelle Murry INNER TUBE TUBER MACHINE OPERATOR POINT OF CARE TEST ORDERABLES F inal Result [facility]
[address] [place] [address], * Mammo Diagnostic Digital Tomosynthesis Bilateral With [...] studies. Left mammographic imaging is otherwise unremarkable. us Claribel Mancera APRN IMG MAMMOGRAPHY ORDERABLE S Final Result * DEXA Scan (03/06/2024 8:25 AM EDT) Anatomical Region Laterality Modality Other Historical Provider MD CAMPOS CHART REVIEW TABS Hawa cervantes Result from Last 3 Months or Most Recently Relevant to Health Maintenance Insurance MEDICARE A & B Member Subscriber Plan / Payer ( fective 2012-Present) Name:Melody Velez Member ID:[id number] Relation to Subscriber:Self Name:Melody Velez Subscriber ID:[id number] Payer ID:[id number] Group ID:Not on file Type:Not on file Address: [facility] [id number] [place] [address] Care Teams Marketing Campaign Analyst Relationship Specialty Start Date End Date Claribel Mancera APRN PCP - General Emergency Medicine 08/22/23
--- OUTSIDE RECORDS SUMMARY | 2025-08-15 14:35 | XMS_ITS ---
Author Organization Unknown Immunizations Date Vaccine DateAdministered TimeAdministered VaccineCode Dose Strength Unit Nailing Machine Operator DueDate CptCode CvxCode ManufacturerCode LocationCode AdministeredBy Custom 07/18 00:00 :00 FLUZONE HD QUAD 07/18/2024 10:28:00 10:28:00 113351 0.5 mL 03/25/20 00:00:00 [id number] 197 ROXY MALONE
--- OUTSIDE RECORDS SUMMARY | 2025-08-15 14:36 | XMS_ITS | Encounter Summary ---
Author Organization [facility] Address [address] [place] [address] Care Team Providers Care Examination Scorer Name Role Phone Claribel Mancera APRN Primary Care Provider +1 [phone] Encounter Details Date Type Department Care Team (Late Contact Info) Description 02/18/2025 Results Follow-Up [facility] RHEUMATOLOGY [address] [address] Daylin Galelgos APRN [address] [place] [id number] Social History Tobacco Use Types Packs/Day Years [...] Info) Description 10/03/2025 10:30 AM EST Appointment [facility] RHEUMATOLOGY DEXA [address] [address] 10/03/2025 11:00 AM EST Office Visit [facility] RHEUMATOLOGY [address] [address] Daylin Gallegos APRN [address] [phone] 10/08/2025 2:45 PM EST Office Visit [facility] UROLOGY [address] [facility] [address] [place], [place] [address] Jenelle Murry APRN 1760 [facility] [address] [place], [place] [id number] 01/13/2026 1:30 PM EDT Office Visit [facility] R[facility]UMATOLOGY [address] [address] Gabriel Pabon MD [address] [phone] documented as of this encounter Visit Diagnoses Not on filedocumented in this encounter Care Teams Examination Scorer Relationship Specialty Start Date End Date Claribel Mancera, JAVA J2EE APPLICATION DEVELOPER PCP - General Emergency Medicine 08/22/23 documented as of this encounter
--- OUTSIDE RECORDS SUMMARY | 2025-08-15 14:36 | XMS_ITS | Encounter Summary ---
Author Organization [facility] Address [address] [place] [address] Care Team Providers Care Day Care Center Director Name Role Phone Claribel Mancera APRN Primary Care Provider +1 -[phone] Reason for Visit * Reason Onset Date Comments Med Refill 08/15/2025 Encounter Details Date Type Department Care Team (Late Contact Info) Description 08/15/2025 Refill [facility] UROLOGY [address] [facility] [address] [place] [address] Jenelle Murry APRN [address]60 [facility] [address] [place] [address] Overactive bladder Social History Tobacco Use Types Packs/Day Years [...] Encounters Date Type Department Care Team (Late Contact Info) Description 10/03/2025 10:30 AM EST Appointment [facility] RHEUMATOLOGY DEXA 330 [facility] [address] [place] [address] 10/03/2025 11:00 AM EST Office Visit [facility] RHEUMAT[facility]Y [address] [address] Daylin Gallegos, SQUARING MACHINE OPERATOR 330 [facility] [address] [place], [place] [phone] 10/08/2025 2:45 PM EST Office Visit [facility] UROLOGY [address] [facility] [place], [place] [address] Jenelle Murry APRN [address] [facility] [address] [place], [place] [id number] 01/13/2026 1:30 PM EDT Office Visit [facility] [address] [address] Gabriel Pabon MD [address] [phone] documented as of this encounter Visit Diagnoses Diagnosis Overactive bladder Hypertonicity of bladder documented in this encounter Care Teams Day Care Center Director Relationship Specialty Start Date End Date Claribel Mancera, SQUARING MACHINE OPERATOR PCP - General Emergency Medicine 08/22/23 documented as of this encounter
--- OUTSIDE RECORDS SUMMARY | 2025-08-15 14:36 | XMS_ITS | Encounter Summary ---
Author Organization [facility] Address [address] [place] [address] Care Team Providers Care Cradle Slide Maker Name Role Phone Claribel Mancera APRN Primary Care Provider [phone] [phone] Encounter Details Date Type Department Care Team (Late Contact Info) Description 07/24/2025 Results Follow-Up [facility] UROLOGY [address] [facility] [place] [address] Jenelle Murry APRN 1760 [facility] [address] [place] [address] Social History Tobacco Use Types Packs/Day Years [...] Info) Description 10/03/2025 10:30 AM EST Appointment [facility] RHEUMATOLOGY DEXA [address] [address] 10/03/2025 11:00 AM EST Office Visit [facility] RHEUMATOLOGY [address] [facility] [address] [place] [address] Daylin Gallegos APRN [address] [phone] 10/08/2025 2:45 PM EST Office Visit [facility] UROLOGY 1760 [facility] [address] [place], [place] [address] Jenelle Murry APRN [address] [phone] 01/13/2026 1:30 PM EDT Office Visit [facility] RHEUMATOLOGY [address] [address] Gabriel Pabon MD [address] [phone] documented as of this encounter Visit Diagnoses Not on filedocumented in this encounter Care Teams Cradle Slide Maker Relationship Specialty Start Date End Date Claribel Mancera, MANAGER ORACLE PCP - General Emergency Medicine 08/22/23 documented as of this encounter
--- OUTSIDE RECORDS SUMMARY | 2025-08-15 14:36 | XMS_ITS | Encounter Summary ---
Author Organization [facility] Address [address] [place] [address] Care Team Providers Care Chemistry Teacher Name Role Phone Claribel Mancera APRN Primary Care Provider [phone] [phone] Encounter Details Date Type Department Care Team (Late Contact Info) Description 02/19/2025 Results Follow-Up [facility] RHEUMATOLOGY [address] [address] Daylin Gallegos APRN [address] [place] [phone] Social History Tobacco Use Types Packs/Day Years [...] Info) Description 10/03/2025 10:30 AM EST Appointment [facility] RHEUMAT[facility] DEXA [address] [address] 10/03/2025 11:00 AM EST Office Visit [facility] [address] [address] Daylin Gallegos APRN [address] [id number] 10/08/2025 2:45 PM EST Office Visit [facility] UROLOGY 1760 [facility] [address] [place], [place] [address] Jenelle Murry APRN 1760 [facility] [address] [place], [place] [phone] 01/13/2026 1:30 PM EDT Office Visit [facility] [address] [address] Gabriel Pabon MD [address] [phone] documented as of this encounter Visit Diagnoses Not on filedocumented in this encounter Care Teams Chemistry Teacher Relationship Specialty Start Date End Date Claribel Mancera, SCRAP PREPARER PCP - General Emergency Medicine 08/22/23 documented as of this encounter
== END 2025-08-15 23:59 | disposition home or self-care (01) ==
LOC: INF 12:56
PROVIDERS: PCP Nurse Practitioner; Visit Provider Nurse Practitioner Family
DX: M81.0 Age-related osteoporosis without current pathological fracture (principal)
CPT/HCPCS: 96372; J0897